=== PATIENT | male | born 1960 | race American Indian/Alaskan Native ===

== ENCOUNTER 2022-02-20 11:46 | Inpatient (IN) | payer OTHER ==
[2022-02-20] MEDS ORDERED: ALBUTEROL 2.5 MG/3 ML NEBU IH ONE (12:06)
[2022-02-20] MEDS ORDERED: IPRATROPIUM 0.02% NEBU 2.5 ML IH ONE (12:06)
[2022-02-20] MEDS ORDERED: SODIUM CHLORIDE 0.9% 500 ML 500 ML IV ONE (12:06)
--- NOTE | 2022-02-20 12:34 | XRay Report ---
CHEST 1 VIEW 02/20/2022 12:16 PM INDICATION / CLINICAL INFORMATION: Dyspnea. COMPARISON: None available. FINDINGS: SUPPORT DEVICES: None. HEART / MEDIASTINUM: No significant abnormality. LUNGS / PLEURA: Mild focal infiltrate within the lateral right lung base concerning for mild bronchop neumonia. Diffuse bronchial wall thickening. No other consolidation or significant pleural effusion. Mild pulmonary hyperinflation, which may represent underlying emphysema. No pneumothorax. ADDITIONAL FINDINGS: None IMPRESSION: 1. Mild right lateral basilar infiltrate concerning for mild focal bronchopneumonia. Signer Name: Jamey Jasso MD Signed: 02/20/2022 12:29 PM Workstation Name: [employer]
[2022-02-20] MEDS ORDERED: PIPERACIL-TAZO 2.25 GM/50 ML 2.25 GM/50 ML BAG IV ONE (12:42)
[2022-02-20 13:49] LABS: INR 1.07 (0.87-1.13)
[2022-02-20] MEDS ORDERED: SODIUM CHLORIDE 0.9% 500 ML 500 ML ONE (14:37)
[2022-02-20 14:53] LABS: Mean Corpuscular Volume 86 fl (84-94); Platelet Count 430 K/mm3 (140-440); Red Blood Count 4.16 M/mm3 (3.65-5.03); Red Cell Distribution Width 16.8 % (13.2-15.2)
[2022-02-20 14:56] LABS: Hematocrit 35.8 % (35.5-45.6)
[2022-02-20 15:00] LABS: Mean Corpuscular HGB Conc 39 % (32-34)
[2022-02-20 15:35] LABS: BUN/Creatinine Ratio TNR
[2022-02-20 15:41] LABS: Blood Urea Nitrogen TNR mg/dL (9-20)
[2022-02-20 15:42] LABS: Calcium TNR mg/dL (8.4-10.2)
[2022-02-20 15:43] LABS: Alanine Aminotransferase TNR units/L (7-56); Albumin TNR g/dL (3.9-5); Creatine Kinase MB TNR ng/mL (0.0-4.0)
[2022-02-20 15:44] LABS: Hemolysis Index TNR
[2022-02-20 16:19] LABS: Alanine Aminotransferase 5 units/L (7-56); Albumin 3.4 g/dL (3.9-5); Blood Urea Nitrogen 11 mg/dL (9-20); Calcium 9.2 mg/dL (8.4-10.2); Hemolysis Index 42
[2022-02-20 16:20] LABS: BUN/Creatinine Ratio 37
[2022-02-20 16:28] LABS: ABG HCO3 25.3 mmol/L (20.0-26.0); ABG Methemoglobin 0.6 % (0.0-1.5); ABG Oxygen Saturation 99.2 % (95.0-99.0); ABG PCO2 43.6 mm Hg; ABG PH 7.381 pH Units (7.350-7.450); ABG PO2 195.7 mm Hg (80.0-90.0)
[2022-02-20 16:55] LABS: Creatine Kinase MB 6.4 ng/mL (0.0-4.0)
[2022-02-20 17:20] LABS: Chol/HDL Ratio 4.52 %
--- NOTE | 2022-02-20 17:31 | Emergency Department Report ---
ED General Adult HPI - General Chief complaint: Dyspnea/Respdistress Stated complaint: YOANDY PUI?: No Time Seen by Provider: 02/20/22 12:06 Source: patient, EMS Mode of arrival: Stretcher Limitations: No Limitations - History of Present Illness Initial comments: DIFFICULTY BREATHING, PT HAS A HISTORY OF EMPHYSEMA. PT O2 SAT ON EMS ARRIVAL WAS 71- 2.5MG ALBUTEROL, 2MG MAG, 125MG SOLUMEDROL GIVEN BY EMS ON ARRIVA -: Gradual, days(s) Location: chest Severity scale (0 -10): 0 Associated Symptoms: chest pain, cough, shortness of breath, weakness Treatments Prior to Arrival: other (albuterol and steriods ) - Related Data Allergies Allergy/AdvReac Type Severity Reaction Status Date / Time No Known Allergies Allergy Unverified 02/20/22 11:55 ED Review of Systems ROS: Stated complaint: YOANDY Other details as noted in HPI Constitutional: denies: chills, fever Eyes: denies: eye pain, eye discharge, vision change ENT: denies: ear pain, throat pain Respiratory: denies: cough, shortness of breath, wheezing Cardiovascular: denies: chest pain, palpitations Endocrine: no symptoms reported Gastrointestinal: denies: abdominal pain, nausea, diarrhea Genitourinary: denies: urgency, dysuria Musculoskeletal: denies: back pain, joint swelling, arthralgia Skin: denies: rash, lesions Neurological: denies: headache, weakness, paresthesias Psychiatric: denies: anxiety, depression Hematological/Lymphatic: denies: easy bleeding, easy bruising ED Past Medical Hx - Past Medical History Previous Medical History?: No Hx Hypertension: No Hx COPD: Yes - Social History Smoking Status: Current Every Day Smoker ED Physical Exam - General Limitations: No Limitations General appearance: alert, anxious, cachectic - Head Head exam: Present: atraumatic, normocephalic - Eye Eye exam: Present: normal appearance - ENT ENT exam: Present: mucous membranes moist - Neck Neck exam: Present: normal inspection - Respiratory Respiratory exam: Present: wheezes, rhonchi, accessory muscle use, decreased breath sounds. Absent: respiratory distress - Cardiovascular Cardiovascular Exam: Present: normal rhythm, tachycardia. Absent: systolic murmur, diastolic murmur, rubs, gallop - GI/Abdominal GI/Abdominal exam: Present: soft, normal bowel sounds - Rectal Rectal exam: Present: deferred - Extremities Exam Extremities exam: Present: normal inspection - Back Exam Back exam: Present: normal inspection - Neurological Exam Neurological exam: Present: alert, oriented X3 - Psychiatric Psychiatric exam: Present: normal affect, normal mood - Skin Skin exam: Present: warm, dry, intact, normal color. Absent: rash ED Course Vital Signs 02/20/22 02/20/22 02/20/22 11:46 12:01 12:15 Pulse Rate 120 H 110 H Pulse Rate [ Bilateral] Respiratory 24 43 H Rate Respiratory Rate [Bilateral ] Blood Pressure 131/80 Blood Pressure 143/72 [Left] O2 Sat by Pulse 100 97 79 L Oximetry 02/20/22 02/20/22 02/20/22 12:27 12:31 12:45 Pulse Rate 114 H 113 H 116 H Pulse Rate [ Bilateral] Respiratory 38 H 39 H 27 H Rate Respiratory Rate [Bilateral ] Blood Pressure 131/80 131/80 115/68 Blood Pressure [Left] O2 Sat by Pulse 100 100 100 Oximetry 02/20/22 02/20/22 02/20/22 12:50 13:01 13:15 Pulse Rate 113 H 120 H Pulse Rate [ 100 H Bilateral] Respiratory 29 H 29 H Rate Respiratory 25 H Rate [Bilateral ] Blood Pressure 131/80 95/70 Blood Pressure [Left] O2 Sat by Pulse 97 100 Oximetry 02/20/22 02/20/22 02/20/22 13:31 13:45 14:01 Pulse Rate 113 H 113 H 112 H Pulse Rate [ Bilateral] Respiratory 16 24 27 H Rate Respiratory Rate [Bilateral ] Blood Pressure 115/68 103/68 95/70 Blood Pressure [Left] O2 Sat by Pulse 100 100 100 Oximetry 02/20/22 02/20/22 02/20/22 14:15 14:31 14:45 Pulse Rate 113 H 114 H 111 H Pulse Rate [ Bilateral] Respiratory 19 22 29 H Rate Respiratory Rate [Bilateral ] Blood Pressure 103/65 103/68 112/77 Blood Pressure [Left] O2 Sat by Pulse 100 100 99 Oximetry 02/20/22 02/20/22 14:49 15:36 Pulse Rate 99 H Pulse Rate [ Bilateral] Respiratory 31 H Rate Respiratory Rate [Bilateral ] Blood Pressure 92/63 Blood Pressure [Left] O2 Sat by Pulse 100 99 Oximetry ED Medical Decision Making - Lab Data Result diagrams: 02/20/22 13:33 02/20/22 14:34 - EKG Data -: EKG Interpreted by Me EKG shows normal: sinus rhythm Rate: tachycardia - Radiology Data Radiology results: report reviewed, image reviewed - Medical Decision Making work up showed anemia, sepsis pneumonia and respiratory failure , started on biap, abx givenf luids given rt given steriods Critical care attestation.: If time is entered above; I have spent that time in minutes in the direct care of this critically ill patient, excluding procedure time. ED Disposition Clinical Impression: Pneumonia, COPD exacerbation, Respiratory failure, Sepsis Disposition: ADMITTED INPATIENT Is pt being admited?: Yes Does the pt Need Aspirin: No Condition: Fair Instructions: Bacterial Pneumonia (ED), Chronic Obstructive Pulmonary Disease (ED) Referrals: PRIMARY CARE, [Primary Care Provider] - 3-5 Days
[2022-02-20] MEDS ORDERED: oxyCODONE /ACETAMINOPHEN 5-325MG TAB PO PRN (17:46)
[2022-02-20] MEDS ORDERED: METOCLOPRAMIDE 10 MG/2 ML INJ IV PRN (17:46)
[2022-02-20] MEDS ORDERED: MORPHINE 2 MG/1 ML INJ IV PRN (17:46)
[2022-02-20] MEDS ORDERED: ONDANSETRON 4 MG/2 ML INJ IV PRN (17:46)
[2022-02-20] MEDS ORDERED: IPRATROPIUM/ALBUTEROL SULFATE 3 ML AMPUL.NEB IH PRN (17:54)
[2022-02-20] MEDS ORDERED: AZITHROMYCIN/NS 500 MG/250 ML 500 MG/250 ML BAG IV SCH (18:00)
[2022-02-20] MEDS ORDERED: D5W/0.9% NACL 1,000 ML IV SCH (18:00)
[2022-02-20] MEDS ORDERED: ALBUTEROL 2.5 MG/3 ML NEBU IH PRN (18:12)
--- NOTE | 2022-02-20 18:20 | History and Physical Report ---
History of Present Illness Date of examination: 02/20/22 Date of admission: 02/20/2022 Chief complaint: Severe shortness of breath for 2 days History of present illness: 61-year-old male with history of hypertension and COPD comes in for increasing shortness of breath for the last 2 to 3 days. Patient has been having cough with sputum production which is mucoid in color. No fever or chills. Increasing shortness of breath not responding to inhalers and nebulizer treatments. No exacerbating or relieving factors. Except for smoking - Past Medical History Previous Medical History?: No --Hypertension: No --COPD: Yes - Social History --Smoking Status: Current Every Day Smoker Review of Systems ROS: Stated complaint: YOANDY Other details as noted in HPI Constitutional: denies: chills, fever Eyes: denies: eye pain, eye discharge, vision change ENT: denies: ear pain, throat pain Respiratory: denies: cough, shortness of breath, wheezing Cardiovascular: denies: chest pain, palpitations Endocrine: no symptoms reported Gastrointestinal: denies: abdominal pain, nausea, diarrhea Genitourinary: denies: urgency, dysuria Musculoskeletal: denies: back pain, joint swelling, arthralgia Skin: denies: rash, lesions Neurological: denies: headache, weakness, paresthesias Psychiatric: denies: anxiety, depression Hematological/Lymphatic: denies: easy bleeding, easy bruising Past History Past Surgical History: No surgical history Family history: hypertension Medications and Allergies Allergies Allergy/AdvReac Type Severity Reaction Status Date / Time No Known Allergies Allergy Unverified 02/20/22 11:55 Exam - Constitutional Vitals: Temp Pulse Resp BP Pulse Ox 99 H 31 H 92/63 99 02/20/22 15:36 02/20/22 15:36 02/20/22 15:36 02/20/22 15:36 General appearance: Present: severe distress, cachectic - EENT Eyes: Present: PERRL ENT: hearing intact, clear oral mucosa - Neck Neck: Present: supple, normal ROM - Respiratory Respiratory effort: normal Respiratory: bilateral: diminished, rhonchi, wheezing - Cardiovascular Heart rate: 98 Rhythm: regular Heart Sounds: Present: S1 & S2. Absent: rub, click - Extremities Extremities: pulses symmetrical, No edema Peripheral Pulses: within normal limits - Abdominal General gastrointestinal: Present: soft, non-tender, non-distended, normal bowel sounds Male genitourinary: Present: normal - Integumentary Integumentary: Present: clear, warm, dry - Musculoskeletal Musculoskeletal: gait normal, strength equal bilaterally - Psychiatric Psychiatric: appropriate mood/affect, intact judgment & insight - Neurologic Neurologic: CNII-XII intact, moves all extremities HEART Score - HEART Score Troponin: Troponin T TNR 02/20/22 14:34 Results - Labs CBC & Chem 7: 02/21/22 05:28 02/21/22 05:28 Labs: Laboratory Last Values WBC 10.8 K/mm3 (4.5-11.0) 02/20/22 13:33 RBC 4.16 M/mm3 (3.65-5.03) 02/20/22 13:33 Hgb 14.0 gm/dl (11.8-15.2) 02/20/22 13:33 Hct 35.8 % (35.5-45.6) 02/20/22 13:33 MCV 86 fl (84-94) 02/20/22 13:33 MCH 34 pg (28-32) H 02/20/22 13:33 MCHC 39 % (32-34) H* 02/20/22 13:33 RDW 16.8 % (13.2-15.2) H 02/20/22 13:33 Plt Count 430 K/mm3 (140-440) 02/20/22 13:33 Lymph % (Auto) [employer] 02/20/22 13:33 [place] % (Auto) [employer] 02/20/22 13:33 Eos % (Auto) [employer] 02/20/22 13:33 Baso % (Auto) [employer] 02/20/22 13:33 Lymph # (Auto) [employer] 02/20/22 13:33 [place] # (Auto) [employer] 02/20/22 13:33 Eos # (Auto) [employer] 02/20/22 13:33 Baso # (Auto) [employer] 02/20/22 13:33 Seg Neutrophils % [employer] 02/20/22 13:33 Seg Neutrophils # [employer] 02/20/22 13:33 PT 15.4 Sec. (12.2-14.9) H 02/20/22 13:33 INR 1.07 (0.87-1.13) 02/20/22 13:33 ABG pH 7.381 pH Units (7.350-7.450) 02/20/22 16:08 ABG pCO2 43.6 mm Hg 02/20/22 16:08 ABG pO2 195.7 mm Hg (80.0-90.0) H 02/20/22 16:08 ABG HCO3 25.3 mmol/L (20.0-26.0) 02/20/22 16:08 ABG O2 Saturation 99.2 % (95.0-99.0) H 02/20/22 16:08 ABG O2 Content 17.7 (0.0-44) 02/20/22 16:08 ABG Base Excess 0.0 mmol/L (-2.0-3.0) 02/20/22 16:08 ABG Hemoglobin 12.7 gm/dl (14.0-18.0) L 02/20/22 16:08 ABG Carboxyhemoglobin 1.9 % (0.0-5.0) 02/20/22 16:08 ABG Methemoglobin 0.6 % (0.0-1.5) 02/20/22 16:08 Oxyhemoglobin 96.7 % (95.0-99.0) 02/20/22 16:08 FiO2 50 % 02/20/22 16:08 Sodium TNR 02/20/22 14:34 Potassium TNR 02/20/22 14:34 Chloride TNR 02/20/22 14:34 Carbon Dioxide TNR 02/20/22 14:34 Anion Gap TNR 02/20/22 14:34 BUN TNR 02/20/22 14:34 Creatinine TNR 02/20/22 14:34 Estimated GFR TNR 02/20/22 14:34 BUN/Creatinine Ratio TNR 02/20/22 14:34 Glucose TNR 02/20/22 14:34 Lactic Acid 2.10 mmol/L (0.7-2.0) H* 02/20/22 14:34 Calcium TNR 02/20/22 14:34 Magnesium TNR 02/20/22 14:34 Total Bilirubin TNR 02/20/22 14:34 AST TNR 02/20/22 14:34 ALT TNR 02/20/22 14:34 Alkaline Phosphatase TNR 02/20/22 14:34 Total Creatine Kinase TNR 02/20/22 14:34 CK-MB (CK-2) TNR 02/20/22 14:34 CK-MB (CK-2) Rel Index TNR 02/20/22 14:34 Troponin T TNR 02/20/22 14:34 NT-Pro-B Natriuret Pep 146.4 pg/mL (0-900) 02/20/22 13:39 Total Protein TNR 02/20/22 14:34 Albumin TNR 02/20/22 14:34 Albumin/Globulin Ratio TNR 02/20/22 14:34 Triglycerides 140 mg/dL (2-149) 02/20/22 13:39 Cholesterol 154 mg/dL (50-199) 02/20/22 13:39 LDL Cholesterol Direct 90 mg/dL (50-130) 02/20/22 13:39 HDL Cholesterol 34 mg/dL (40-59) L 02/20/22 13:39 Cholesterol/HDL Ratio 4.52 % 02/20/22 13:39 Lipase TNR 02/20/22 14:34 Short CBC 02/20/22 02/21/22 Range/Units 13:33 05:28 WBC 10.8 3.2 L (4.5-11.0) K/mm3 Hgb 14.0 11.4 L (11.8-15.2) gm/dl Hct 35.8 32.3 L (35.5-45.6) % Plt Count 430 328 (140-440) K/mm3 BMP 02/20/22 02/20/22 02/21/22 13:39 14:34 05:28 Sodium 143 TNR 136 L Potassium 4.4 TNR 4.4 Chloride 98.9 TNR 101.4 Carbon Dioxide 24 TNR 25 BUN 11 TNR 12 Creatinine 0.3 L TNR 0.2 L Glucose 139 H TNR 141 H Calcium 9.2 TNR 8.6 Cardiac Enzymes 02/20/22 02/20/22 Range/Units 13:39 14:34 Total Creatine Kinase 54 L TNR (55-170) units/L CK-MB (CK-2) 6.4 H TNR (0.0-4.0) ng/mL Troponin T 0.141 H* TNR (0.00-0.029) ng/mL Liver Function 02/20/22 02/20/22 02/21/22 Range/Units 13:39 14:34 05:28 Total Bilirubin 0.60 TNR 0.40 (0.1-1.2) mg/dL AST 13 TNR 11 (5-40) units/L ALT 5 L TNR < 5 L (7-56) units/L Alkaline Phosphatase 109 TNR 87 (35-129) units/L Albumin 3.4 L TNR 3.0 L (3.9-5) g/dL Urine 02/20/22 Range/Units 18:53 Urine Color Yellow (Yellow) Short CBC 02/20/22 02/21/22 Range/Units 13:33 05:28 WBC 10.8 3.2 L (4.5-11.0) K/mm3 Hgb 14.0 11.4 L (11.8-15.2) gm/dl Hct 35.8 32.3 L (35.5-45.6) % Plt Count 430 328 (140-440) K/mm3 BMP 02/20/22 02/20/22 02/21/22 13:39 14:34 05:28 Sodium 143 TNR 136 L Potassium 4.4 TNR 4.4 Chloride 98.9 TNR 101.4 Carbon Dioxide 24 TNR 25 BUN 11 TNR 12 Creatinine 0.3 L TNR 0.2 L Glucose 139 H TNR 141 H Calcium 9.2 TNR 8.6 Cardiac Enzymes 02/20/22 02/20/22 Range/Units 13:39 14:34 Total Creatine Kinase 54 L TNR (55-170) units/L CK-MB (CK-2) 6.4 H TNR (0.0-4.0) ng/mL Troponin T 0.141 H* TNR (0.00-0.029) ng/mL Liver Function 02/20/22 02/20/22 02/21/22 Range/Units 13:39 14:34 05:28 Total Bilirubin 0.60 TNR 0.40 (0.1-1.2) mg/dL AST 13 TNR 11 (5-40) units/L ALT 5 L TNR < 5 L (7-56) units/L Alkaline Phosphatase 109 TNR 87 (35-129) units/L Albumin 3.4 L TNR 3.0 L (3.9-5) g/dL Urine 08/25/22 Range/Units 18:53 Urine Color Yellow (Yellow) Microbiology: Microbiology 02/20/22 13:39 Peripheral/Venous Blood Culture - Preliminary Culture in Progress 02/20/22 13:39 Peripheral/Venous Blood Culture - Preliminary Culture in Progress - Imaging and Cardiology EKG: report reviewed (Sinus tachycardia heart rate of 110/min) Chest x-ray: report reviewed Imaging and Cardiology: Chest x-ray Mild right lateral basilar infiltrate concerning for mild focal bronchopneumonia Assessment and Plan Advance Directives: Yes (Full code) VTE prophylaxis?: Chemical Plan of care discussed with patient/family: Yes - Patient Problems (1) Acute respiratory failure with hypoxia Current Visit: Yes Status: Acute Plan to address problem: Patient is hypoxic at the time of admission to emergency room Patient on 50% Ventimask now Titrate oxygen supplementation Respiratory assessment and treatment Patient initiated on duo nebs and steroids and antibiotics (2) Right lower lobe pneumonia Current Visit: Yes Status: Acute Plan to address problem: Patient has right lower lobe pneumonia IV antibiotics and duo nebs and IV Solu-Medrol (3) COPD exacerbation Current Visit: Yes Status: Acute Plan to address problem: Patient initiated on IV steroids, IV antibiotics and duo nebs [id number] and as needed (4) Hypertension Current Visit: Yes Status: Chronic Qualifiers: Hypertension type: primary hypertension Qualified Code(s): I10 - Essential (primary) hypertension Plan to address problem: Continue antihypertensives and adjust medications as necessary (5) DVT prophylaxis Current Visit: Yes Status: Acute Plan to address problem: On anticoagulation GI prophylaxis (6) Advance care planning Current Visit: Yes Status: Acute Plan to address problem: Disease education conducted, care plan discussed, diagnosis discussed and prognosis discussed. Patient acknowledges care plan. +30 minutes.
[2022-02-20] MEDS: cefTRIAXone/NS 2 GM/100 ML 2 GM/100 ML BAG IV SCH (18:56)
[2022-02-20 19:11] LABS: Mucus,Urine 1+ /HPF
[2022-02-20 19:17] LABS: Amphetamine Screen,Urine Negative; Benzodiazepines Screen,Urine Negative; Cannabinoid Screen,Urine Negative; Cocaine Screen,Urine Negative; Methadone Screen,Urine Negative; Opiate Screen,Urine Negative
[2022-02-20 19:20] LABS: Color,Urine Yellow (Yellow)
[2022-02-20] MEDS: IPRATROPIUM/ALBUTEROL SULFATE 3 ML AMPUL.NEB IH SCH (19:36)
[2022-02-20] MEDS: HEPARIN 5,000 UNIT/1 ML VIAL SUB-Q SCH (22:31)
[2022-02-20] MEDS: FAMOTIDINE 20 MG TAB PO SCH (22:31)
[2022-02-20] MEDS: methylPREDNISolone Sod Succinate 125 MG/2 ML INJ IV SCH (22:31)
[2022-02-21 05:53] LABS: Eosinophils % (Auto) 0.4 % (0.0-4.3); Monocytes # (Auto) 0.2 K/mm3 (0.0-0.8); Monocytes % (Auto) 5.8 % (0.0-7.3)
[2022-02-21] MEDS: methylPREDNISolone Sod Succinate 125 MG/2 ML INJ IV SCH ×2 (06:00→14:06)
[2022-02-21 06:15] LABS: Blood Urea Nitrogen 12 mg/dL (9-20); Calcium 8.6 mg/dL (8.4-10.2); Hemolysis Index 3
[2022-02-21 06:17] LABS: Alanine Aminotransferase < 5 units/L (7-56); BUN/Creatinine Ratio 60
[2022-02-21 06:37] LABS: Basophils % (Auto) 1.1 % (0.0-1.8); Hematocrit 32.3 % (35.5-45.6); Hemoglobin 11.4 gm/dl (11.8-15.2); Lymphocytes # (Auto) 0.6 K/mm3 (1.2-5.4); Lymphocytes % (Auto) 20.3 % (13.4-35.0); Mean Corpuscular HGB Conc 35 % (32-34); Mean Corpuscular Volume 87 fl (84-94); Platelet Count 328 K/mm3 (140-440); Red Blood Count 3.71 M/mm3 (3.65-5.03); Red Cell Distribution Width 16.4 % (13.2-15.2)
[2022-02-21] MEDS ORDERED: SODIUM CHLORIDE 0.9% 1000 ML 1,000 ML IV ONE (08:30)
[2022-02-21] MEDS: IPRATROPIUM/ALBUTEROL SULFATE 3 ML AMPUL.NEB IH SCH (09:10)
[2022-02-21] MEDS: cefTRIAXone/NS 2 GM/100 ML 2 GM/100 ML BAG IV SCH (09:54)
[2022-02-21] MEDS: HEPARIN 5,000 UNIT/1 ML VIAL SUB-Q SCH ×2 (09:54→22:26)
[2022-02-21] MEDS: FAMOTIDINE 20 MG TAB PO SCH ×2 (09:55→22:27)
--- NOTE | 2022-02-21 10:35 | Electrocardiograph Report ---
[facility] Test Date: 2022-02-20 Test Time: 12:08:24 Pat Name: ELIANA ORDONEZ Department: Room: A479 Gender: M Clock Smith: AISHA : 1960 Requested By: LEXUS LANG Order Number: [id number] Reading MD: Ilan Reilly Measurements Intervals [place] Rate: 106 P: 75 UT: 137 QRS: 71 QRSD: 77 T: 74 QT: 329 QTc: 449 Interpretive Statements Sinus tachycardia Atrial premature complex nonspecific st-t Nonspecific T abnormalities, lateral leads No previous ECG available for comparison Electronically Signed On 02-21-2022 10:35:34 EDT by Ilan Reilly
[2022-02-21] MEDS ORDERED: AZITHROMYCIN 250 MG TAB PO SCH (11:00)
[2022-02-21] MEDS ORDERED: ALBUTEROL 2.5 MG/3 ML NEBU IH PRN (12:00)
--- NOTE | 2022-02-21 12:28 | Event Note ---
Date: 02/21/22 Consulted for respiratory failure and COPD Needs COVID test Will evaluate once COVID back Suggest changing steroids to 60q6 Would hold on nebulized therapy and only use puffers until COVID results Daily net negative volume state Smoking cessation.
[2022-02-21] MEDS ORDERED: IPRATROPIUM/ALBUTEROL SULFATE 3 ML AMPUL.NEB IH SCH (14:00)
--- NOTE | 2022-02-21 18:58 | Consultation ---
History of Present Illness - Reason for Consult Consult date: 02/21/22 - History of Present Illness 61-year-old man past medical history hypertension, COPD presented to hospital complaining of shortness of breath for the past 3 days. He notes increasing cough and sputum production. He otherwise denies any other symptoms. Ongoing smoking. Afebrile, white count low at 3.2. COVID-19 positive. Normal renal function. CRP elevated at 6.7. Procalcitonin pending. Blood cultures no growth so far. Currently on methylprednisolone, no antibiotics. Requiring BiPAP. Imaging personally reviewed: Chest x-ray: Right lateral basilar infiltrate Review of systems: Deferred to reduce to the risk of transmission of COVID-19 Past History Past Surgical History: No surgical history Family history: hypertension Medications and Allergies Allergies Allergy/AdvReac Type Severity Reaction Status Date / Time No Known Allergies Allergy Unverified 02/20/22 11:55 Home Medications Medication Instructions Recorded Confirmed Last Taken Type ALBUTEROL NEB's [Proventil 0.083% 2.5 mg IH Q6H PRN 02/21/22 02/21/22 Unknown History NEBS] Budesonide/Formoterol Fumarate 10.2 gm IH Q12H 02/21/22 02/21/22 Unknown History [Symbicort 160-4.5 Mcg Inhaler] Tiotropium [Spiriva] 18 mcg IH QDAY 02/21/22 02/21/22 Unknown History Active Meds: Active Medications Acetaminophen (Acetaminophen 325 Mg Tab) 650 mg PO Q4H PRN PRN Reason: Pain MILD(1-3)/Fever >100.5/SALEEM Albuterol (Albuterol 2.5 Mg/3 Ml Nebu) 2.5 mg IH Q4HRT PRN PRN Reason: Shortness Of Breath Arformoterol Tartrate (Arformoterol 15 Mcg/2 Ml Nebu) 15 mcg IH Q12HRT [facility] Budesonide (Budesonide 0.5 Mg/2 Ml Nebu) 0.5 mg IH Q12HRT [facility] Famotidine (Famotidine 20 Mg Tab) 20 mg PO BID [facility] Last Admin: 02/21/22 09:55 Dose: 20 mg Heparin Sodium (Porcine) (Heparin 5,000 Unit/1 Ml Vial) 5,000 unit SUB-Q Q12HR [facility] Last Admin: 02/21/22 09:54 Dose: 5,000 unit Methylprednisolone Sodium Succinate (Methylprednisolone Sod Succinate 125 Mg/2 Ml Inj) 125 mg IV Q8HR [facility] Last Admin: 02/21/22 14:06 Dose: 125 mg Metoclopramide HCl (Metoclopramide 10 Mg/2 Ml Inj) 10 mg IV Q6H PRN PRN Reason: Nausea And Vomiting Morphine Sulfate (Morphine 2 Mg/1 Ml Inj) 2 mg IV Q4H PRN PRN Reason: Pain, Moderate (4-6) Ondansetron HCl (Ondansetron 4 Mg/2 Ml Inj) 4 mg IV Q8H PRN PRN Reason: Nausea And Vomiting Oxycodone/Acetaminophen (Oxycodone /Acetaminophen 5-325mg Tab) 1 tab PO Q6H PRN PRN Reason: Pain, Moderate (4-6) Sodium Chloride (Sodium Chloride 0.9% 10 Ml Flush Syringe) 10 ml IV BID [facility] Last Admin: 02/21/22 09:55 Dose: 10 ml Sodium Chloride (Sodium Chloride 0.9% 10 Ml Flush Syringe) 10 ml IV PRN PRN PRN Reason: LINE FLUSH Physical Examination - Physical Exam Narrative exam: Physical exam deferred to reduce risk of transmission of COVID-19. Please refer to primary team's note. - Constitutional Vitals: Vital Signs Temp Pulse Resp BP Pulse Ox 97.6 F 120 H 36 H 126/95 100 02/21/22 11:47 02/21/22 16:52 02/21/22 16:52 02/21/22 16:52 02/21/22 16:52 Temperature -Last 24 Hours Temperature 97.6 F Temperature 97.7 F Temperature 98.0 F Temperature 97.0 F Results - Labs CBC & Chem 7: 02/21/22 05:28 02/21/22 05:28 Labs: Abnormal lab results 02/21/22 02/21/22 02/21/22 Range/Units 05:28 05:28 09:20 WBC 3.2 L (4.5-11.0) K/mm3 Hgb 11.4 L (11.8-15.2) gm/dl Hct 32.3 L (35.5-45.6) % MCHC 35 H (32-34) % RDW 16.4 H (13.2-15.2) % Lymph # (Auto) 0.6 L (1.2-5.4) K/mm3 Seg Neutrophils % 73.5 H (40.0-70.0) % D-Dimer 335.95 H (0-234) ng/mlDDU Sodium 136 L (137-145) mmol/L Creatinine 0.2 L (0.8-1.3) mg/dL Glucose 141 H (75-100) mg/dL Ferritin (30.0-300.0) ng/mL ALT < 5 L (7-56) units/L C-Reactive Protein (0.00-1.30) mg/dL Albumin 3.0 L (3.9-5) g/dL Coronavirus (PCR) (Negative) 02/21/22 02/21/22 02/21/22 Range/Units 09:20 09:20 11:30 WBC (4.5-11.0) K/mm3 Hgb (11.8-15.2) gm/dl Hct (35.5-45.6) % MCHC (32-34) % RDW (13.2-15.2) % Lymph # (Auto) (1.2-5.4) K/mm3 Seg Neutrophils % (40.0-70.0) % D-Dimer (0-234) ng/mlDDU Sodium (137-145) mmol/L Creatinine (0.8-1.3) mg/dL Glucose (75-100) mg/dL Ferritin 1666.0 H (30.0-300.0) ng/mL ALT (7-56) units/L C-Reactive Protein 6.70 H (0.00-1.30) mg/dL Albumin (3.9-5) g/dL Coronavirus (PCR) Positive A (Negative) Assessment and Plan Cultures: Blood culture no growth so far COVID-19 PCR positive. A/P: 61-year-old man past medical history COPD, nicotine abuse now with: #Severe COVID-19 pneumonia: Patient presented with a week of symptoms, chest x- ray with infiltrates, admission O2 sats decreased on room air. Inflammatory markers elevated #Acute hypoxemic respiratory failure: Likely secondary to COVID-19 infection. Currently on BiPAP #COPD #Leukopenia: Secondary to COVID-19 Recommendations: -Steroids for 10 days -Remdesivir 200 mg IV q day x 1 followed by 100 mg IV q day x 4 days -Obtain q48-72h inflammatory markers - ferritin, Ddimer, CRP, LDH -If CRP exceeds 7.5, consider Actemra -Anticoagulation per hospital protocol -Proning as able Thank you for the consult, we will continue to follow. Yanet Cid MD [facility] O: [phone] F: [phone]
--- NOTE | 2022-02-21 19:30 | Progress Note ---
Assessment and Plan Assessment and plan: #COVID-19 pneumonia #Right lower lobe pneumonia #Acute hypoxic respiratory failure #Acute on chronic COPD exacerbation - etiology: COVID-19 infection - currently requiring BiPAP (baseline oxygen requirement is room air); wean as tolerated - continue azithromycin 500 mg daily (ends 02/25) and rocephin 1g daily (ends 02/25) and remdesivir x5 days continue IV Solu-Medrol 60 mg every 6 hours, airborne and droplet precautions, continuous pulse ox, and telemetry Blood cultures pending. Infectious disease consulted; appreciate recs Pulmonology consulted; appreciate recs Currently holding nebulizers as the patient is positive for COVID-19 to avoid aerosolizing virus #Mild protein caloric malnutrition Albumin 3.0 Starting dietary supplementation Critical Care Billing: The high probability of a clinically significant, sudden or life threatening deterioration of the [respiratory] system(s) required my full and direct attention, intervention and personal management. The aggregate critical care time was [60] minutes. This time is in addition to time spent performing reported procedures but includes the following: [x] Data Review and interpretation [x] Patient assessment and monitoring of vital signs [x] Documentation [x] Medication orders and management Disposition Plan: Continue medical management Total Time Spent with Patient (Minutes): 60 minutes History Interval history: No acute events overnight. Hospitalist Physical - Constitutional Vitals: Temp Pulse Resp BP Pulse Ox 97.6 F 69 15 87/58 100 02/21/22 11:47 02/21/22 19:00 02/21/22 19:00 02/21/22 19:00 02/21/22 19:00 General appearance: Present: severe distress, cachectic - EENT Eyes: Present: PERRL, EOM intact ENT: hearing intact, clear oral mucosa, dentition normal - Neck Neck: Present: supple, normal ROM - Respiratory Respiratory effort: labored Respiratory: bilateral: diminished (On BiPAP) - Cardiovascular Rhythm: regular Heart Sounds: Present: S1 & S2 - Extremities Extremities: no ischemia, pulses intact, pulses symmetrical, No edema, normal temperature, normal color Peripheral Pulses: within normal limits - Abdominal General gastrointestinal: soft, non-tender, non-distended, normal bowel sounds - Integumentary Integumentary: Present: clear, warm, dry - Psychiatric Psychiatric: appropriate mood/affect, intact judgment & insight, memory intact, cooperative - Neurologic Neurologic: CNII-XII intact, moves all extremities - Allied Health Allied health notes reviewed: nursing HEART Score - HEART Score Troponin: Troponin T TNR 02/20/22 14:34 Results - Labs CBC & Chem 7: 02/21/22 05:28 02/21/22 05:28 Labs: Laboratory Last Values WBC 3.2 K/mm3 (4.5-11.0) L 02/21/22 05:28 RBC 3.71 M/mm3 (3.65-5.03) 02/21/22 05:28 Hgb 11.4 gm/dl (11.8-15.2) L 02/21/22 05:28 Hct 32.3 % (35.5-45.6) L 02/21/22 05:28 MCV 87 fl (84-94) 02/21/22 05:28 MCH 31 pg (28-32) 02/21/22 05:28 MCHC 35 % (32-34) H 02/21/22 05:28 RDW 16.4 % (13.2-15.2) H 02/21/22 05:28 Plt Count 328 K/mm3 (140-440) 02/21/22 05:28 Lymph % (Auto) 20.3 % (13.4-35.0) 02/21/22 05:28 [place] % (Auto) 5.8 % (0.0-7.3) 02/21/22 05:28 Eos % (Auto) 0.4 % (0.0-4.3) 02/21/22 05:28 Baso % (Auto) 1.1 % (0.0-1.8) 02/21/22 05:28 Lymph # (Auto) 0.6 K/mm3 (1.2-5.4) L 02/21/22 05:28 [place] # (Auto) 0.2 K/mm3 (0.0-0.8) 02/21/22 05:28 Eos # (Auto) 0.0 K/mm3 (0.0-0.4) 02/21/22 05:28 Baso # (Auto) 0.0 K/mm3 (0.0-0.1) 02/21/22 05:28 Seg Neutrophils % 73.5 % (40.0-70.0) H 02/21/22 05:28 Seg Neutrophils # 2.3 K/mm3 (1.8-7.7) 02/21/22 05:28 PT 15.4 Sec. (12.2-14.9) H 02/20/22 13:33 INR 1.07 (0.87-1.13) 02/20/22 13:33 D-Dimer 335.95 ng/mlDDU (0-234) H 02/21/22 09:20 ABG pH 7.381 pH Units (7.350-7.450) 02/20/22 16:08 ABG pCO2 43.6 mm Hg 02/20/22 16:08 ABG pO2 195.7 mm Hg (80.0-90.0) H 02/20/22 16:08 ABG HCO3 25.3 mmol/L (20.0-26.0) 02/20/22 16:08 ABG O2 Saturation 99.2 % (95.0-99.0) H 02/20/22 16:08 ABG O2 Content 17.7 (0.0-44) 02/20/22 16:08 ABG Base Excess 0.0 mmol/L (-2.0-3.0) 02/20/22 16:08 ABG Hemoglobin 12.7 gm/dl (14.0-18.0) L 02/20/22 16:08 ABG Carboxyhemoglobin 1.9 % (0.0-5.0) 02/20/22 16:08 ABG Methemoglobin 0.6 % (0.0-1.5) 02/20/22 16:08 Oxyhemoglobin 96.7 % (95.0-99.0) 02/20/22 16:08 FiO2 50 % 02/20/22 16:08 Sodium 136 mmol/L (137-145) L 02/21/22 05:28 Potassium 4.4 mmol/L (3.6-5.0) 02/21/22 05:28 Chloride 101.4 mmol/L (98-107) 02/21/22 05:28 Carbon Dioxide 25 mmol/L (22-30) 02/21/22 05:28 Anion Gap 14 mmol/L 02/21/22 05:28 BUN 12 mg/dL (9-20) 02/21/22 05:28 Creatinine 0.2 mg/dL (0.8-1.3) L 02/21/22 05:28 Estimated GFR > 60 ml/min 02/21/22 05:28 BUN/Creatinine Ratio 60 % 02/21/22 05:28 Glucose 141 mg/dL (75-100) H 02/21/22 05:28 Lactic Acid 2.10 mmol/L (0.7-2.0) H* 02/20/22 14:34 Calcium 8.6 mg/dL (8.4-10.2) 02/21/22 05:28 Magnesium TNR 02/20/22 14:34 Ferritin 1666.0 ng/mL (30.0-300.0) H 02/21/22 09:20 Total Bilirubin 0.40 mg/dL (0.1-1.2) 02/21/22 05:28 AST 11 units/L (5-40) 02/21/22 05:28 ALT < 5 units/L (7-56) L 02/21/22 05:28 Alkaline Phosphatase 87 units/L (35-129) 02/21/22 05:28 Total Creatine Kinase TNR 02/20/22 14:34 CK-MB (CK-2) TNR 02/20/22 14:34 CK-MB (CK-2) Rel Index TNR 02/20/22 14:34 Troponin T TNR 02/20/22 14:34 C-Reactive Protein 6.70 mg/dL (0.00-1.30) H 02/21/22 09:20 NT-Pro-B Natriuret Pep 146.4 pg/mL (0-900) 02/20/22 13:39 Total Protein 6.5 g/dL (6.3-8.2) 02/21/22 05:28 Albumin 3.0 g/dL (3.9-5) L 02/21/22 05:28 Albumin/Globulin Ratio 0.9 % 02/21/22 05:28 Triglycerides 140 mg/dL (2-149) 02/20/22 13:39 Cholesterol 154 mg/dL (50-199) 02/20/22 13:39 LDL Cholesterol Direct 90 mg/dL (50-130) 02/20/22 13:39 HDL Cholesterol 34 mg/dL (40-59) L 02/20/22 13:39 Cholesterol/HDL Ratio 4.52 % 02/20/22 13:39 Lipase TNR 02/20/22 14:34 Urine Color Yellow (Yellow) 02/20/22 18:53 Urine Turbidity Cloudy (Clear) 02/20/22 18:53 Specific [place] (Man) 1.020 (1.003-1.030) 02/20/22 18:53 Ur Protein (Man) 1+ mg/dL (Negative) 02/20/22 18:53 Ur Ketones (Man) Negative (Negative) 02/20/22 18:53 Ur Nitrite (Man) Negative (Negative) 02/20/22 18:53 Ur Reducing Substances Not Reportable 02/20/22 18:53 Urine Bilirubin (Man) Negative (Negative) 02/20/22 18:53 Leukocyte Esterase (Man) Negative (Negative) 02/20/22 18:53 Urine WBC (Auto) 3.0 /HPF (0.0-6.0) 02/20/22 18:53 Urine RBC (Auto) 1.0 /HPF (0.0-6.0) 02/20/22 18:53 Urine RBC (Manual) Negative (Negative) 02/20/22 18:53 Urine Mucus 1+ /HPF 02/20/22 18:53 Urine Opiates Screen Negative 02/20/22 18:53 Urine Methadone Screen Negative 02/20/22 18:53 Ur Barbiturates Screen Negative 02/20/22 18:53 Ur Phencyclidine Scrn Negative 02/20/22 18:53 Ur Amphetamines Screen Negative 02/20/22 18:53 U Benzodiazepines Scrn Negative 02/20/22 18:53 Urine Cocaine Screen Negative 02/20/22 18:53 U Marijuana (THC) Screen Negative 02/20/22 18:53 Drugs of Abuse Note Disclamer 02/20/22 18:53 Coronavirus (PCR) Positive (Negative) A 02/21/22 11:30 Microbiology: Microbiology 02/20/22 13:39 Peripheral/Venous Blood Culture - Preliminary NO GROWTH AFTER 24 HOURS 02/20/22 13:39 Peripheral/Venous Blood Culture - Preliminary NO GROWTH AFTER 24 HOURS Linder/IV: Voiding Method Urinal Active Medications - Current Medications Current Medications: Generic Name Dose Route Start Last Admin Trade Name Freq PRN Reason Stop Dose Admin Acetaminophen 650 mg 02/20/22 17:46 Acetaminophen 325 Mg Tab PO Q4H PRN Pain MILD(1-3)/Fever >100.5/SALEEM Albuterol 2.5 mg 02/21/22 12:00 Albuterol 2.5 Mg/3 Ml Nebu IH Q4HRT PRN Shortness Of Breath Arformoterol Tartrate 15 mcg 02/21/22 20:00 Arformoterol 15 Mcg/2 Ml Nebu IH Q12HRT [facility] Budesonide 0.5 mg 02/21/22 20:00 Budesonide 0.5 Mg/2 Ml Nebu IH Q12HRT [facility] Famotidine 20 mg 02/20/22 22:00 02/21/22 09:55 Famotidine 20 Mg Tab PO 20 mg BID LIONEL Administration Heparin Sodium (Porcine) 5,000 unit 02/20/22 22:00 02/21/22 09:54 Heparin 5,000 Unit/1 Ml Vial SUB-Q 5,000 unit Q12HR LIONEL Administration Remdesivir 200 mg/ Sodium 250 mls @ 500 mls/hr 02/21/22 22:00 Chloride IV 02/21/22 22:29 ONCE ONE Remdesivir 100 mg/ Sodium 250 mls @ 500 mls/hr 02/22/22 14:00 Chloride IV 02/25/22 14:29 Q24HR@1400 LION[facility] Methylprednisolone Sodium Succinate 125 mg 02/20/22 22:00 02/21/22 14:06 Methylprednisolone Sod Succinate 125 Mg/2 Ml Inj IV 125 mg Q8HR LIONEL Administration Metoclopramide HCl 10 mg 02/20/22 17:46 Metoclopramide 10 Mg/2 Ml Inj IV Q6H PRN Nausea And Vomiting Morphine Sulfate 2 mg 02/20/22 17:46 Morphine 2 Mg/1 Ml Inj IV Q4H PRN Pain, Moderate (4-6) Ondansetron HCl 4 mg 02/20/22 17:46 Ondansetron 4 Mg/2 Ml Inj IV Q8H PRN Nausea And Vomiting Oxycodone/Acetaminophen 1 tab 02/20/22 17:46 Oxycodone /Acetaminophen 5-325mg Tab PO Q6H PRN Pain, Moderate (4-6) Sodium Chloride 10 ml 02/20/22 22:00 02/21/22 09:55 Sodium Chloride 0.9% 10 Ml Flush Syringe IV 10 ml BID LIONEL Administration Sodium Chloride 10 ml 08/25/22 17:46 Sodium Chloride 0.9% 10 Ml Flush Syringe IV PRN PRN LINE FLUSH Sodium Chloride 50 ml 02/22/22 22:30 Sodium Chloride 0.9% 50 Ml Ivpb IV 02/26/22 14:01 Q24HR@1400 [facility] Nutrition/Malnutrition Assess - Dietary Evaluation Nutrition/Malnutrition Findings: Nutrition Notes Start: 02/21/22 14:17 Freq: Status: Active Protocol: Document 02/21/22 14:18 ALLA (Rec: 02/21/22 14:27 [id number] Nutrition Notes Need for Assessment generated from: MD Order Initial or Follow up Assessment Current Diagnosis COPD,Hypertension,Respiratory Failure Other Pertinent Diagnosis RLL pneu, COPD exacerbation, r /o COVID-19 Current Diet Regular + Ensure Enlive (per MD order) Labs/Tests Reviewed Pertinent Medications Solumedrol Height 5 ft 5 in Weight 35.6 kg [place] Body Weight (kg) 61.81 BMI 13.0 Weight Status Underweight Subjective/Other Information RD consulted for poor oral intake; pt also screened for low BMI. Pt admitted with c/o increasing SOB for last 2-3 days. Pt on BiPap support. Burn Absent Trauma Absent Skin Integrity/Comment No skin breakdown reported Minimum of two criteria Yes Energy Intake (severe) < or equal to 50% Estimated Energy Requirement > or equal to 5 days Reduced Licensing Officer Strength Measurably Reduced (severe) #1 Nutrition Diagnosis Malnutrition Etiology chronic illness As Evidenced by Signs and Symptoms BMI 13.1, decreased PO intake, bilat weak pot holder binder strength Is patient on ventilator? No Is Patient Ambulatory and/or Out of Bed Yes REE-([facility]-ambulatory/OOB) [ 1407.744 [id number]] Kcal/Kg value to use for calculation 50 Approximate Energy Requirements Using 1780 kcal/Kg Calculation Used for Recommendations Kcal/kg Additional Notes Pro needs 1.2-1.5g/k-53g/ day Fluid needs 1ml/kcal Nutrition Intervention Change Diet Order: Continue current diet order Add Supplement/Snack (indicate name/kcal Ensure High Protein TID ( /protein ) Ensure Enlive not in stock until February 2022) Provides kCal: 480 Provides Protein (gm) 48 Goal #1 PO intake of meals plus ONS to meet 100% of energy and pro needs Goal #2 Wt maintenance and/or gain Anticipated Discharge Needs: Continue ONS 2-3 times daily for wt maintenance Follow-Up By: 02/24/22 Additional Comments F/U: intakes (meals/ONS), COVID-19 test results
[2022-02-21] MEDS: ARFORMOTEROL 15 MCG/2 ML NEBU IH SCH (21:04)
[2022-02-21] MEDS: BUDESONIDE 0.5 MG/2 ML NEBU IH SCH (21:04)
[2022-02-21] MEDS ORDERED: REMDESIVIR 200 MG in SODIUM CHLORIDE 0.9% 250ML 250 ML IV ONE (22:00)
[2022-02-22] MEDS: methylPREDNISolone Sod Succinate 125 MG/2 ML INJ IV SCH ×4 (00:30→17:52)
[2022-02-22 05:01] LABS: Lymphocytes # (Auto) 0.7 K/mm3 (1.2-5.4); Lymphocytes % (Auto) 12.1 % (13.4-35.0); Mean Corpuscular HGB Conc 37 % (32-34); Mean Corpuscular Volume 90 fl (84-94); Monocytes # (Auto) 0.4 K/mm3 (0.0-0.8); Platelet Count 425 K/mm3 (140-440); Red Blood Count 3.11 M/mm3 (3.65-5.03); Red Cell Distribution Width 17.1 % (13.2-15.2)
[2022-02-22 05:02] LABS: Hematocrit 27.9 % (35.5-45.6); Hemoglobin 10.3 gm/dl (11.8-15.2)
[2022-02-22 05:21] LABS: Blood Urea Nitrogen 13 mg/dL (9-20); Calcium 8.6 mg/dL (8.4-10.2); Hemolysis Index 3
[2022-02-22 05:33] LABS: BUN/Creatinine Ratio 43
[2022-02-22] MEDS: BUDESONIDE 0.5 MG/2 ML NEBU IH SCH (08:39)
[2022-02-22] MEDS: ARFORMOTEROL 15 MCG/2 ML NEBU IH SCH (08:39)
[2022-02-22] MEDS: HEPARIN 5,000 UNIT/1 ML VIAL SUB-Q SCH ×2 (09:13→22:10)
[2022-02-22] MEDS: FAMOTIDINE 20 MG TAB PO SCH ×2 (09:13→22:10)
[2022-02-22] MEDS ORDERED: LORazepam 2 MG/ML VIAL IV ONE (09:29)
--- NOTE | 2022-02-22 10:37 | Consultation ---
History of Present Illness Consult date: 02/22/22 Reason for consult: COPD, hypoxemia, other (COVID) History of present illness: 61 y/o male who appears older than stated age, current smoker admitted with acute respiratory failure requiring continuous bipap. Was originally admitted to the floor but transferred to [facility] yesterday afternoon after COVID test resulted positive. Currently on high dose steroids and bipap. Had increased work of breathing using accessory muscles this am when off bipap attempting to eat breakfast. Never desatted. came to visit and given the level of COPD he has (per , he has "very bad lungs" and has been detioriating and losing weight to the point they were doing an extensive malignancy work up on him but so far negative) we allowed the to visit as I discussed code status with him. Prior to her arrival, he stated he would not want to be on a ventilator but I asked that he and his talk about this. Remainder of the review is negative. Past History Past Medical History: COPD Past Surgical History: No surgical history Family history: hypertension Medications and Allergies Allergies Allergy/AdvReac Type Severity Reaction Status Date / Time No Known Allergies Allergy Unverified 02/20/22 11:55 Home Medications Medication Instructions Recorded Confirmed Last Taken Type ALBUTEROL NEB's [Proventil 0.083% 2.5 mg IH Q6H PRN 02/21/22 02/21/22 Unknown History NEBS] Budesonide/Formoterol Fumarate 10.2 gm IH Q12H 02/21/22 02/21/22 Unknown History [Symbicort 160-4.5 Mcg Inhaler] Tiotropium [Spiriva] 18 mcg IH QDAY 02/21/22 02/21/22 Unknown History Active Meds: Active Medications Acetaminophen (Acetaminophen 325 Mg Tab) 650 mg PO Q4H PRN PRN Reason: Pain MILD(1-3)/Fever >100.5/SALEEM Albuterol (Albuterol 2.5 Mg/3 Ml Nebu) 2.5 mg IH Q4HRT PRN PRN Reason: Shortness Of Breath Arformoterol Tartrate (Arformoterol 15 Mcg/2 Ml Nebu) 15 mcg IH Q12HRT [facility]ION[facility] Last Admin: 02/22/22 08:39 Dose: 15 mcg Budesonide (Budesonide 0.5 Mg/2 Ml Nebu) 0.5 mg IH Q12HRT [facility] Last Admin: 02/22/22 08:39 Dose: 0.5 mg Famotidine (Famotidine 20 Mg Tab) 20 mg PO BID [facility] Last Admin: 02/22/22 09:13 Dose: 20 mg Heparin Sodium (Porcine) (Heparin 5,000 Unit/1 Ml Vial) 5,000 unit SUB-Q Q12HR [facility] Last Admin: 02/22/22 09:13 Dose: 5,000 unit Remdesivir 100 mg/ Sodium (Chloride) 250 mls @ 500 mls/hr IV Q24HR@1400 [facility] Stop: 02/25/22 14:29 Dexmedetomidine HCl 400 mcg/ (Sodium Chloride) 104 mls @ 1.851 mls/hr IV TITRATE [facility]; Protocol Methylprednisolone Sodium Succinate (Methylprednisolone Sod Succinate 125 Mg/2 Ml Inj) 60 mg IV Q6HR [facility] Last Admin: 02/22/22 05:31 Dose: 60 mg Metoclopramide HCl (Metoclopramide 10 Mg/2 Ml Inj) 10 mg IV Q6H PRN PRN Reason: Nausea And Vomiting Morphine Sulfate (Morphine 2 Mg/1 Ml Inj) 2 mg IV Q4H PRN PRN Reason: Pain, Moderate (4-6) Ondansetron HCl (Ondansetron 4 Mg/2 Ml Inj) 4 mg IV Q8H PRN PRN Reason: Nausea And Vomiting Oxycodone/Acetaminophen (Oxycodone /Acetaminophen 5-325mg Tab) 1 tab PO Q6H PRN PRN Reason: Pain, Moderate (4-6) Sodium Chloride (Sodium Chloride 0.9% 10 Ml Flush Syringe) 10 ml IV BID [facility] Last Admin: 02/22/22 09:13 Dose: 10 ml Sodium Chloride (Sodium Chloride 0.9% 10 Ml Flush Syringe) 10 ml IV PRN PRN PRN Reason: LINE FLUSH Sodium Chloride (Sodium Chloride 0.9% 50 Ml Ivpb) 50 ml IV Q24HR@1400 [facility] Stop: 02/26/22 14:01 Review of Systems All systems: negative Physical Examination Vital signs: Vital Signs Pulse Resp BP Pulse Ox 120 H 24 143/72 100 02/20/22 11:46 02/20/22 11:46 02/20/22 11:46 02/20/22 11:46 General appearance: appears uncomfortable, other (appears older than stated age) Eyes: non-icteric ENT: other (full face mask bipap on at present) Neck: supple Effort: very labored Ascultation: Bilateral: diminished breath sounds Results - Laboratory Findings CBC and BMP: 02/22/22 04:41 02/22/22 04:41 ABG ABG pH 7.381 pH Units (7.350-7.450) 02/20/22 16:08 ABG pCO2 43.6 mm Hg 02/20/22 16:08 ABG pO2 195.7 mm Hg (80.0-90.0) H 02/20/22 16:08 ABG O2 Saturation 99.2 % (95.0-99.0) H 02/20/22 16:08 PT/INR, D-dimer PT 15.4 Sec. (12.2-14.9) H 02/20/22 13:33 INR 1.07 (0.87-1.13) 02/20/22 13:33 D-Dimer 335.95 ng/mlDDU (0-234) H 02/21/22 09:20 Abnormal lab findings: Abnormal Labs 02/20/22 02/20/22 02/20/22 13:33 13:33 13:33 WBC RBC Hgb Hct MCH 34 H MCHC 39 H* RDW 16.8 H Lymph % (Auto) Lymph # (Auto) Seg Neutrophils % PT 15.4 H D-Dimer ABG pO2 ABG O2 Saturation ABG Hemoglobin Sodium Creatinine Glucose Lactic Acid 3.70 H* Magnesium Ferritin ALT Total Creatine Kinase CK-MB (CK-2) CK-MB (CK-2) Rel Index Troponin T C-Reactive Protein Albumin HDL Cholesterol Coronavirus (PCR) 02/20/22 02/20/22 02/20/22 13:39 13:39 13:39 WBC RBC Hgb Hct MCH MCHC RDW Lymph % (Auto) Lymph # (Auto) Seg Neutrophils % PT D-Dimer ABG pO2 ABG O2 Saturation ABG Hemoglobin Sodium Creatinine 0.3 L Glucose 139 H Lactic Acid Magnesium 2.60 H Ferritin ALT 5 L Total Creatine Kinase 54 L CK-MB (CK-2) 6.4 H CK-MB (CK-2) Rel Index 11.8 H Troponin T 0.141 H* C-Reactive Protein Albumin 3.4 L HDL Cholesterol 34 L Coronavirus (PCR) 02/20/22 02/20/22 02/21/22 14:34 16:08 05:28 WBC 3.2 L RBC Hgb 11.4 L Hct 32.3 L MCH MCHC 35 H RDW 16.4 H Lymph % (Auto) Lymph # (Auto) 0.6 L Seg Neutrophils % 73.5 H PT D-Dimer ABG pO2 195.7 H ABG O2 Saturation 99.2 H ABG Hemoglobin 12.7 L Sodium Creatinine Glucose Lactic Acid 2.10 H* Magnesium Ferritin ALT Total Creatine Kinase CK-MB (CK-2) CK-MB (CK-2) Rel Index Troponin T C-Reactive Protein Albumin HDL Cholesterol Coronavirus (PCR) 02/21/22 02/21/22 02/21/22 05:28 09:20 09:20 WBC RBC Hgb Hct MCH MCHC RDW Lymph % (Auto) Lymph # (Auto) Seg Neutrophils % PT D-Dimer 335.95 H ABG pO2 ABG O2 Saturation ABG Hemoglobin Sodium 136 L Creatinine 0.2 L Glucose 141 H Lactic Acid Magnesium Ferritin 1666.0 H ALT < 5 L Total Creatine Kinase CK-MB (CK-2) CK-MB (CK-2) Rel Index Troponin T C-Reactive Protein Albumin 3.0 L HDL Cholesterol Coronavirus (PCR) 02/21/22 02/21/22 02/22/22 09:20 11:30 04:41 WBC RBC 3.11 L Hgb 10.3 L Hct 27.9 L MCH 33 H MCHC 37 H RDW 17.1 H Lymph % (Auto) 12.1 L Lymph # (Auto) 0.7 L Seg Neutrophils % 80.9 H PT D-Dimer ABG pO2 ABG O2 Saturation ABG Hemoglobin Sodium Creatinine Glucose Lactic Acid Magnesium Ferritin ALT Total Creatine Kinase CK-MB (CK-2) CK-MB (CK-2) Rel Index Troponin T C-Reactive Protein 6.70 H Albumin HDL Cholesterol Coronavirus (PCR) Positive A 02/22/22 02/22/22 04:41 04:41 WBC RBC Hgb Hct MCH MCHC RDW Lymph % (Auto) Lymph # (Auto) Seg Neutrophils % PT D-Dimer ABG pO2 ABG O2 Saturation ABG Hemoglobin Sodium Creatinine 0.3 L Glucose 116 H Lactic Acid Magnesium Ferritin 1116.0 H ALT Total Creatine Kinase CK-MB (CK-2) CK-MB (CK-2) Rel Index Troponin T C-Reactive Protein 2.70 H Albumin HDL Cholesterol Coronavirus (PCR) - Diagnostic Findings Chest x-ray: image reviewed Assessment and Plan 61 y/o male with acute respiratory failure from COPD exacerbation secondary to COVID 1. high dose steroids 2. Bipap PRN and QHS 3. Remdesivir 4. CRP to low for Actemra 5. Negative fluid balance daily 6. Guarded prognosis, did well with ativan PRN so will initiate precedex therapy to help prevent intubation. Long discussion with outside of room and how the mortality would increase if placed on ventilator. Expressed understanding and they will discuss more.
--- NOTE | 2022-02-22 11:20 | Progress Note ---
Assessment and Plan Assessment and plan: This is a 61-year-old male with current nicotine abuse, HTN and COPD admitted with COPD exacerbation secondary to COVID-19 infection Neuro: Anxiety? -Given one-time dose of Ativan IV -Sedated with Precedex drip -RASS goal 0-1 -Reorientation as needed -Maintain sleep-wake cycle -As needed analgesia Cardiac: h/o hypertension -Cardiology consulted, appreciate recommendations -Blood pressure monitoring per protocol -Hold home antihypertension regimen Respiratory: Acute hypoxemic respiratory failure, COPD exacerbation, h/o COPD, current nicotine abuse -Pulmonology consulted, appreciate recommendations -s/p Ventimask -Currently on continuous BiPAP -SPO2 monitor per protocol -Supplemental oxygen as needed -Pulmonary hygiene -Albuterol, Pulmicort, Brovana GI: Moderate protein calorie malnutrition -24 hours + 625 ml -Regular diet -Nutrition supplementation : NAD -Monitor intake and output -Renally dose medications -Avoid nephrotoxic medications -Trend BMP ID: COVID 19 infection -Infectious disease consulted, appreciate recommendation -COVID-19 PCR positive -Solu-Medrol 60 mg every 6 hours -Antibiotic discontinued -Remdesivir for 5 days (02/21-02/26) -Contact/droplet precautions -f/u blood culture -Monitor WBC and temperature curve -Trend COVID-19 inflammatory markers -Anticoagulation per protocol Endo: NAD -Avoid hypoglycemia Heme: Leukopenia (resolved) -Trend CBC -Transfuse hemoglobin less than 7 -SCDs to BLE while in bed The high probability of a clinically significant, sudden or life threatening deterioration of the [pulm/ID] system(s) required my full and direct attention, intervention and personal management. The aggregate critical care time was [60] minutes. This time is in addition to time spent performing reported procedures but includes the following: [x] Data Review and interpretation [x] Patient assessment and monitoring of vital signs [x] Documentation [x] Medication orders and management Disposition Plan: imcu Total Time Spent with Patient (Minutes): 60 History Interval history: This is a 61-year-old male with current nicotine abuse, HTN and COPD who pre sented to emergency department on 02/20 with shortness of breath over the past 2 to 3 days, cough with sputum production and increasing shortness of breath not responding to inhalers or nebulizer treatments. In the emergency department patient was tachycardic and tachypneic and SPO2 was in the 70s on room air. Patient was given albuterol, magnesium, Solu-Medrol by EMS on arrival. Recommend the emergency department. CXR wet read with right lower lobe pneumonia. Patient was admitted to the hospitalist service with acute hypoxic respiratory failure, right lower lobe pneumonia and COPD exacerbation with consult to pulmonology. Hospital course to date: 02/21: No acute events overnight, COVID-19 PCR positive, infectious disease consulted started on remdesivir 02/22: Patient transferred to [facility], currently on CPAP with increased work of breathing. Given 1 dose of Ativan which helped work of breathing and heart rate decreased. Hospitalist Physical - Constitutional Vitals: Temp Pulse Resp BP Pulse Ox 97.4 F L 87 18 101/57 100 02/22/22 04:00 02/22/22 08:44 02/22/22 08:44 02/22/22 08:39 02/22/22 08:44 General appearance: Present: severe distress, cachectic - EENT Eyes: Present: PERRL, EOM intact ENT: hearing intact, dentition normal - Neck Neck: Present: normal ROM - Respiratory Respiratory effort: labored, accessory muscle use Respiratory: bilateral: diminished, wheezing - Cardiovascular Rhythm: regular Heart Sounds: Present: S1 & S2. Absent: systolic murmur, diastolic murmur - Extremities Extremities: no ischemia, pulses intact, pulses symmetrical, No edema, normal temperature, normal color Peripheral Pulses: within normal limits - Abdominal General gastrointestinal: soft, non-tender, non-distended, normal bowel sounds - Integumentary Integumentary: Present: warm, dry - Psychiatric Psychiatric: cooperative, other (anxious) - Neurologic Neurologic: CNII-XII intact, moves all extremities - Allied Health Allied health notes reviewed: nursing, RT HEART Score - HEART Score Troponin: Troponin T TNR 02/20/22 14:34 Results - Labs CBC & Chem 7: 02/22/22 04:41 02/22/22 04:41 Labs: Laboratory Last Values WBC 6.1 K/mm3 (4.5-11.0) 02/22/22 04:41 RBC 3.11 M/mm3 (3.65-5.03) L 02/22/22 04:41 Hgb 10.3 gm/dl (11.8-15.2) L 02/22/22 04:41 Hct 27.9 % (35.5-45.6) L 02/22/22 04:41 MCV 90 fl (84-94) 02/22/22 04:41 MCH 33 pg (28-32) H 02/22/22 04:41 MCHC 37 % (32-34) H 02/22/22 04:41 RDW 17.1 % (13.2-15.2) H 02/22/22 04:41 Plt Count 425 K/mm3 (140-440) 02/22/22 04:41 Lymph % (Auto) 12.1 % (13.4-35.0) L 02/22/22 04:41 [place] % (Auto) 7.0 % (0.0-7.3) 02/22/22 04:41 Eos % (Auto) 0.0 % (0.0-4.3) 02/22/22 04:41 Baso % (Auto) 0.0 % (0.0-1.8) 02/22/22 04:41 Lymph # (Auto) 0.7 K/mm3 (1.2-5.4) L 02/22/22 04:41 [place] # (Auto) 0.4 K/mm3 (0.0-0.8) 02/22/22 04:41 Eos # (Auto) 0.0 K/mm3 (0.0-0.4) 02/22/22 04:41 Baso # (Auto) 0.0 K/mm3 (0.0-0.1) 02/22/22 04:41 Seg Neutrophils % 80.9 % (40.0-70.0) H 02/22/22 04:41 Seg Neutrophils # 4.9 K/mm3 (1.8-7.7) 02/22/22 04:41 PT 15.4 Sec. (12.2-14.9) H 02/20/22 13:33 INR 1.07 (0.87-1.13) 02/20/22 13:33 D-Dimer 335.95 ng/mlDDU (0-234) H 02/21/22 09:20 ABG pH 7.381 pH Units (7.350-7.450) 02/20/22 16:08 ABG pCO2 43.6 mm Hg 02/20/22 16:08 ABG pO2 195.7 mm Hg (80.0-90.0) H 02/20/22 16:08 ABG HCO3 25.3 mmol/L (20.0-26.0) 02/20/22 16:08 ABG O2 Saturation 99.2 % (95.0-99.0) H 02/20/22 16:08 ABG O2 Content 17.7 (0.0-44) 02/20/22 16:08 ABG Base Excess 0.0 mmol/L (-2.0-3.0) 02/20/22 16:08 ABG Hemoglobin 12.7 gm/dl (14.0-18.0) L 02/20/22 16:08 ABG Carboxyhemoglobin 1.9 % (0.0-5.0) 02/20/22 16:08 ABG Methemoglobin 0.6 % (0.0-1.5) 02/20/22 16:08 Oxyhemoglobin 96.7 % (95.0-99.0) 02/20/22 16:08 FiO2 50 % 02/20/22 16:08 Sodium 140 mmol/L (137-145) 02/22/22 04:41 Potassium 4.1 mmol/L (3.6-5.0) 02/22/22 04:41 Chloride 105.4 mmol/L (98-107) 02/22/22 04:41 Carbon Dioxide 25 mmol/L (22-30) 02/22/22 04:41 Anion Gap 14 mmol/L 02/22/22 04:41 BUN 13 mg/dL (9-20) 02/22/22 04:41 Creatinine 0.3 mg/dL (0.8-1.3) L 02/22/22 04:41 Estimated GFR > 60 ml/min 02/22/22 04:41 BUN/Creatinine Ratio 43 % 02/22/22 04:41 Glucose 116 mg/dL (75-100) H 02/22/22 04:41 Lactic Acid 2.10 mmol/L (0.7-2.0) H* 02/20/22 14:34 Calcium 8.6 mg/dL (8.4-10.2) 02/22/22 04:41 Magnesium TNR 02/20/22 14:34 Ferritin 1116.0 ng/mL (30.0-300.0) H 02/22/22 04:41 Total Bilirubin 0.40 mg/dL (0.1-1.2) 02/21/22 05:28 AST 11 units/L (5-40) 02/21/22 05:28 ALT < 5 units/L (7-56) L 02/21/22 05:28 Alkaline Phosphatase 87 units/L (35-129) 02/21/22 05:28 Lactate Dehydrogenase 176 units/L (91-180) 02/22/22 04:41 Total Creatine Kinase TNR 02/20/22 14:34 CK-MB (CK-2) TNR 02/20/22 14:34 CK-MB (CK-2) Rel Index TNR 02/20/22 14:34 Troponin T TNR 02/20/22 14:34 C-Reactive Protein 2.70 mg/dL (0.00-1.30) H 02/22/22 04:41 NT-Pro-B Natriuret Pep 146.4 pg/mL (0-900) 02/20/22 13:39 Total Protein 6.5 g/dL (6.3-8.2) 02/21/22 05:28 Albumin 3.0 g/dL (3.9-5) L 02/21/22 05:28 Albumin/Globulin Ratio 0.9 % 02/21/22 05:28 Triglycerides 140 mg/dL (2-149) 02/20/22 13:39 Cholesterol 154 mg/dL (50-199) 02/20/22 13:39 LDL Cholesterol Direct 90 mg/dL (50-130) 02/20/22 13:39 HDL Cholesterol 34 mg/dL (40-59) L 02/20/22 13:39 Cholesterol/HDL Ratio 4.52 % 02/20/22 13:39 Lipase TNR 02/20/22 14:34 Urine Color Yellow (Yellow) 02/20/22 18:53 Urine Turbidity Cloudy (Clear) 02/20/22 18:53 Specific [place] (Man) 1.020 (1.003-1.030) 02/20/22 18:53 Ur Protein (Man) 1+ mg/dL (Negative) 02/20/22 18:53 Ur Ketones (Man) Negative (Negative) 02/20/22 18:53 Ur Nitrite (Man) Negative (Negative) 02/20/22 18:53 Ur Reducing Substances Not Reportable 02/20/22 18:53 Urine Bilirubin (Man) Negative (Negative) 02/20/22 18:53 Leukocyte Esterase (Man) Negative (Negative) 02/20/22 18:53 Urine WBC (Auto) 3.0 /HPF (0.0-6.0) 02/20/22 18:53 Urine RBC (Auto) 1.0 /HPF (0.0-6.0) 02/20/22 18:53 Urine RBC (Manual) Negative (Negative) 02/20/22 18:53 Urine Mucus 1+ /HPF 02/20/22 18:53 Urine Opiates Screen Negative 02/20/22 18:53 Urine Methadone Screen Negative 02/20/22 18:53 Ur Barbiturates Screen Negative 02/20/22 18:53 Ur Phencyclidine Scrn Negative 02/20/22 18:53 Ur Amphetamines Screen Negative 02/20/22 18:53 U Benzodiazepines Scrn Negative 02/20/22 18:53 Urine Cocaine Screen Negative 02/20/22 18:53 U Marijuana (THC) Screen Negative 02/20/22 18:53 Drugs of Abuse Note Disclamer 02/20/22 18:53 Coronavirus (PCR) Positive (Negative) A 02/21/22 11:30 Microbiology: Microbiology 02/20/22 13:39 Peripheral/Venous Blood Culture - Preliminary NO GROWTH AFTER 24 HOURS 02/20/22 13:39 Peripheral/Venous Blood Culture - Preliminary NO GROWTH AFTER 24 HOURS Linder/IV: Voiding Method Urinal Active Medications - Current Medications Current Medications: Generic Name Dose Route Start Last Admin Trade Name Freq PRN Reason Stop Dose Admin Acetaminophen 650 mg 02/20/22 17:46 Acetaminophen 325 Mg Tab PO Q4H PRN Pain MILD(1-3)/Fever >100.5/SALEEM Albuterol 2.5 mg 02/21/22 12:00 Albuterol 2.5 Mg/3 Ml Nebu IH Q4HRT PRN Shortness Of Breath Arformoterol Tartrate 15 mcg 02/21/22 20:00 02/22/22 08:39 Arformoterol 15 Mcg/2 Ml Nebu IH 15 mcg Q12HRT LIONEL Administration Budesonide 0.5 mg 02/21/22 20:00 02/22/22 08:39 Budesonide 0.5 Mg/2 Ml Nebu IH 0.5 mg Q12HRT LIONEL Administration Famotidine 20 mg 02/20/22 22:00 02/22/22 09:13 Famotidine 20 Mg Tab PO 20 mg BID LIONEL Administration Heparin Sodium (Porcine) 5,000 unit 02/20/22 22:00 02/22/22 09:13 Heparin 5,000 Unit/1 Ml Vial SUB-Q 5,000 unit Q12HR LIONEL Administration Remdesivir 100 mg/ Sodium 250 mls @ 500 mls/hr 02/22/22 14:00 Chloride IV 02/25/22 14:29 Q24HR@1400 [facility] Dexmedetomidine HCl 400 mcg/ 104 mls @ 1.851 mls/hr 02/22/22 11:00 Sodium Chloride IV TITRATE [facility] Protocol 0.2 MCG/KG/HR Methylprednisolone Sodium Succinate 60 mg 02/22/22 00:00 02/22/22 05:31 Methylprednisolone Sod Succinate 125 Mg/2 Ml Inj IV 60 mg Q6HR LIONEL Administration Metoclopramide HCl 10 mg 02/20/22 17:46 Metoclopramide 10 Mg/2 Ml Inj IV Q6H PRN Nausea And Vomiting Morphine Sulfate 2 mg 02/20/22 17:46 Morphine 2 Mg/1 Ml Inj IV Q4H PRN Pain, Moderate (4-6) Ondansetron HCl 4 mg 02/20/22 17:46 Ondansetron 4 Mg/2 Ml Inj IV Q8H PRN Nausea And Vomiting Oxycodone/Acetaminophen 1 tab 02/20/22 17:46 Oxycodone /Acetaminophen 5-325mg Tab PO Q6H PRN Pain, Moderate (4-6) Sodium Chloride 10 ml 02/20/22 22:00 02/22/22 09:13 Sodium Chloride 0.9% 10 Ml Flush Syringe IV 10 ml BID LIONEL Administration Sodium Chloride 10 ml 02/20/22 17:46 Sodium Chloride 0.9% 10 Ml Flush Syringe IV PRN PRN LINE FLUSH Sodium Chloride 50 ml 02/22/22 22:30 Sodium Chloride 0.9% 50 Ml Ivpb IV 02/26/22 14:01 Q24HR@1400 [facility] Nutrition/Malnutrition Assess - Dietary Evaluation Nutrition/Malnutrition Findings: Nutrition Notes Start: 02/21/22 14:17 Freq: Status: Active Protocol: Document 02/21/22 14:18 ALLA (Rec: 02/21/22 14:27 ALLA [email or web address]) Nutrition Notes Need for Assessment generated from: MD Order Initial or Follow up Assessment Current Diagnosis COPD,Hypertension,Respiratory Failure Other Pertinent Diagnosis RLL pneu, COPD exacerbation, r /o COVID-19 Current Diet Regular + Ensure Enlive (per MD order) Labs/Tests Reviewed Pertinent Medications Solumedrol Height 5 ft 5 in Weight 35.6 kg [place] Body Weight (kg) 61.81 BMI 13.0 Weight Status Underweight Subjective/Other Information RD consulted for poor oral intake; pt also screened for low BMI. Pt admitted with c/o increasing SOB for last 2-3 days. Pt on BiPap support. 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 No Is Patient Ambulatory and/or Out of Bed Yes REE-([place]-ambulatory/OOB) [ 1407.744 [id number]] Kcal/Kg value to use for calculation 50 Approximate Energy Requirements Using 1780 kcal/Kg Calculation Used for Recommendations Kcal/kg Additional Notes Pro needs 1.2-1.5g/k-53g/ day Fluid needs 1ml/kcal Nutrition Intervention Change Diet Order: Continue current diet order Add Supplement/Snack (indicate name/kcal Ensure High Protein TID ( /protein ) Ensure Enlive not in stock until February 2022) Provides kCal: 480 Provides Protein (gm) 48 Goal #1 PO intake of meals plus ONS to meet 100% of energy and pro needs Goal #2 Wt maintenance and/or gain Anticipated Discharge Needs: Continue ONS 2-3 times daily for wt maintenance Follow-Up By: 02/24/22 Additional Comments F/U: intakes (meals/ONS), COVID-19 test results
[2022-02-22 12:36] LABS: ABG Base Excess 1.6 mmol/L (-2.0-3.0); ABG HCO3 26.6 mmol/L (20.0-26.0); ABG Methemoglobin 0.6 % (0.0-1.5); ABG Oxygen Saturation 98.2 % (95.0-99.0); ABG PCO2 43.5 mm Hg; ABG PH 7.405 pH Units (7.350-7.450); ABG PO2 116.2 mm Hg (80.0-90.0)
[2022-02-22] MEDS: REMDESIVIR 100 MG in SODIUM CHLORIDE 0.9% 250ML 250 ML IV SCH (14:08)
[2022-02-22] MEDS: SODIUM CHLORIDE 0.9% 50 ML IVPB IV SCH (22:10)
[2022-02-23] MEDS: methylPREDNISolone Sod Succinate 125 MG/2 ML INJ IV SCH ×4 (00:10→18:31)
[2022-02-23 06:07] LABS: Alanine Aminotransferase 7 units/L (7-56); Albumin 2.8 g/dL (3.9-5); Blood Urea Nitrogen 21 mg/dL (9-20); Calcium 8.7 mg/dL (8.4-10.2); Hemolysis Index 2
[2022-02-23 06:13] LABS: BUN/Creatinine Ratio 70
[2022-02-23 07:07] LABS: Hematocrit 28.7 % (35.5-45.6); Hemoglobin 10.3 gm/dl (11.8-15.2); Mean Corpuscular HGB Conc 36 % (32-34); Mean Corpuscular Volume 84 fl (84-94); Platelet Count 418 K/mm3 (140-440); Red Cell Distribution Width 16.9 % (13.2-15.2)
[2022-02-23] MEDS: HEPARIN 5,000 UNIT/1 ML VIAL SUB-Q SCH (09:51)
[2022-02-23] MEDS: FAMOTIDINE 20 MG TAB PO SCH (09:51)
[2022-02-23] MEDS: BUDESONIDE 0.5 MG/2 ML NEBU IH SCH ×2 (11:53→21:21)
[2022-02-23] MEDS: ARFORMOTEROL 15 MCG/2 ML NEBU IH SCH ×2 (11:53→21:20)
--- NOTE | 2022-02-23 12:45 | Progress Note ---
Assessment and Plan 61 y/o male with acute respiratory failure from COPD exacerbation secondary to COVID 02/23/22: Had some bradycardia this am. Concern for precedex induced vs remdesivir or a combination of both. Will stop precedex and put on PRN ativan. Did will with 0.5 yesterday so will do 0.6 IV q4. Bipap PRN and QHS. Tolerating HFNC right now. 1. high dose steroids 2. Bipap PRN and QHS 3. Remdesivir 4. CRP to low for Actemra 5. Negative fluid balance daily 6. Guarded prognosis, did well with ativan PRN so will initiate precedex thera py to help prevent intubation. Long discussion with outside of room and how the mortality would increase if placed on ventilator. Expressed understanding and they will discuss more. Subjective Date of service: 02/23/22 Interval history: No acute events. Tolerating HFNC. Still on Precedex Objective Vital Signs - 12hr 02/23/22 02/23/22 02/23/22 01:01 02:00 03:00 Temperature Pulse Rate 52 L 49 L 50 L Pulse Rate [ From Monitor] Respiratory 20 19 20 Rate Blood Pressure 92/66 90/62 90/62 O2 Sat by Pulse 99 98 Oximetry 02/23/22 02/23/22 02/23/22 03:33 04:00 05:00 Temperature 97.3 F L Pulse Rate 53 L 53 L 53 L Pulse Rate [ 53 L From Monitor] Respiratory 14 15 18 Rate Blood Pressure 100/62 91/64 96/65 O2 Sat by Pulse 100 99 99 Oximetry 02/23/22 02/23/22 02/23/22 06:00 09:39 11:46 Temperature Pulse Rate 53 L 70 Pulse Rate [ From Monitor] Respiratory 14 17 Rate Blood Pressure 95/62 97/63 O2 Sat by Pulse 99 99 100 Oximetry Constitutional: appears uncomfortable, other (appears older than stated age) Eyes: non-icteric ENT: other (full face mask bipap on at present) Neck: supple Effort: very labored Ascultation: Bilateral: diminished breath sounds CBC and BMP: 02/23/22 04:58 02/23/22 04:58 ABG, PT/INR, D-dimer: ABG ABG pH 7.405 pH Units (7.350-7.450) 02/22/22 12:20 ABG pCO2 43.5 mm Hg 02/22/22 12:20 ABG pO2 116.2 mm Hg (80.0-90.0) H 02/22/22 12:20 ABG O2 Saturation 98.2 % (95.0-99.0) 02/22/22 12:20 PT/INR, D-dimer PT 15.4 Sec. (12.2-14.9) H 02/20/22 13:33 INR 1.07 (0.87-1.13) 02/20/22 13:33 D-Dimer 262.94 ng/mlDDU (0-234) H 02/23/22 04:58 Abnormal lab findings: Abnormal Labs 02/20/22 02/20/22 02/20/22 13:33 13:33 13:33 WBC RBC Hgb Hct MCH 34 H MCHC 39 H* RDW 16.8 H Lymph % (Auto) Lymph # (Auto) Seg Neutrophils % PT 15.4 H D-Dimer ABG pO2 ABG HCO3 ABG O2 Saturation ABG Hemoglobin Sodium BUN Creatinine Glucose Lactic Acid 3.70 H* Magnesium Ferritin ALT Total Creatine Kinase CK-MB (CK-2) CK-MB (CK-2) Rel Index Troponin T C-Reactive Protein Total Protein Albumin HDL Cholesterol Coronavirus (PCR) 02/20/22 02/20/22 02/20/22 13:39 13:39 13:39 WBC RBC Hgb Hct MCH MCHC RDW Lymph % (Auto) Lymph # (Auto) Seg Neutrophils % PT D-Dimer ABG pO2 ABG HCO3 ABG O2 Saturation ABG Hemoglobin Sodium BUN Creatinine 0.3 L Glucose 139 H Lactic Acid Magnesium 2.60 H Ferritin ALT 5 L Total Creatine Kinase 54 L CK-MB (CK-2) 6.4 H CK-MB (CK-2) Rel Index 11.8 H Troponin T 0.141 H* C-Reactive Protein Total Protein Albumin 3.4 L HDL Cholesterol 34 L Coronavirus (PCR) 02/20/22 02/20/22 02/21/22 14:34 16:08 05:28 WBC 3.2 L RBC Hgb 11.4 L Hct 32.3 L MCH MCHC 35 H RDW 16.4 H Lymph % (Auto) Lymph # (Auto) 0.6 L Seg Neutrophils % 73.5 H PT D-Dimer ABG pO2 195.7 H ABG HCO3 ABG O2 Saturation 99.2 H ABG Hemoglobin 12.7 L Sodium BUN Creatinine Glucose Lactic Acid 2.10 H* Magnesium Ferritin ALT Total Creatine Kinase CK-MB (CK-2) CK-MB (CK-2) Rel Index Troponin T C-Reactive Protein Total Protein Albumin HDL Cholesterol Coronavirus (PCR) 02/21/22 02/21/22 02/21/22 05:28 09:20 09:20 WBC RBC Hgb Hct MCH MCHC RDW Lymph % (Auto) Lymph # (Auto) Seg Neutrophils % PT D-Dimer 335.95 H ABG pO2 ABG HCO3 ABG O2 Saturation ABG Hemoglobin Sodium 136 L BUN Creatinine 0.2 L Glucose 141 H Lactic Acid Magnesium Ferritin 1666.0 H ALT < 5 L Total Creatine Kinase CK-MB (CK-2) CK-MB (CK-2) Rel Index Troponin T C-Reactive Protein Total Protein Albumin 3.0 L HDL Cholesterol Coronavirus (PCR) 02/21/22 02/21/22 02/22/22 09:20 11:30 04:41 WBC RBC 3.11 L Hgb 10.3 L Hct 27.9 L MCH 33 H MCHC 37 H RDW 17.1 H Lymph % (Auto) 12.1 L Lymph # (Auto) 0.7 L Seg Neutrophils % 80.9 H PT D-Dimer ABG pO2 ABG HCO3 ABG O2 Saturation ABG Hemoglobin Sodium BUN Creatinine Glucose Lactic Acid Magnesium Ferritin ALT Total Creatine Kinase CK-MB (CK-2) CK-MB (CK-2) Rel Index Troponin T C-Reactive Protein 6.70 H Total Protein Albumin HDL Cholesterol Coronavirus (PCR) Positive A 02/22/22 02/22/22 02/22/22 04:41 04:41 12:20 WBC RBC Hgb Hct MCH MCHC RDW Lymph % (Auto) Lymph # (Auto) Seg Neutrophils % PT D-Dimer ABG pO2 116.2 H ABG HCO3 26.6 H ABG O2 Saturation ABG Hemoglobin 11.9 L Sodium BUN Creatinine 0.3 L Glucose 116 H Lactic Acid Magnesium Ferritin 1116.0 H ALT Total Creatine Kinase CK-MB (CK-2) CK-MB (CK-2) Rel Index Troponin T C-Reactive Protein 2.70 H Total Protein Albumin HDL Cholesterol Coronavirus (PCR) 02/23/22 02/23/22 02/23/22 04:58 04:58 04:58 WBC RBC Hgb Hct MCH MCHC RDW Lymph % (Auto) Lymph # (Auto) Seg Neutrophils % PT D-Dimer 262.94 H ABG pO2 ABG HCO3 ABG O2 Saturation ABG Hemoglobin Sodium 136 L BUN 21 H Creatinine 0.3 L Glucose 104 H Lactic Acid Magnesium Ferritin 806.9 H ALT Total Creatine Kinase CK-MB (CK-2) CK-MB (CK-2) Rel Index Troponin T C-Reactive Protein Total Protein 5.8 L Albumin 2.8 L HDL Cholesterol Coronavirus (PCR) 02/23/22 04:58 WBC 4.3 L RBC 3.40 L Hgb 10.3 L Hct 28.7 L MCH MCHC 36 H RDW 16.9 H Lymph % (Auto) Lymph # (Auto) Seg Neutrophils % PT D-Dimer ABG pO2 ABG HCO3 ABG O2 Saturation ABG Hemoglobin Sodium BUN Creatinine Glucose Lactic Acid Magnesium Ferritin ALT Total Creatine Kinase CK-MB (CK-2) CK-MB (CK-2) Rel Index Troponin T C-Reactive Protein Total Protein Albumin HDL Cholesterol Coronavirus (PCR)
[2022-02-23] MEDS: SODIUM CHLORIDE 0.9% 50 ML IVPB IV SCH (14:58)
[2022-02-23] MEDS: REMDESIVIR 100 MG in SODIUM CHLORIDE 0.9% 250ML 250 ML IV SCH (14:58)
--- NOTE | 2022-02-23 15:49 | Progress Note ---
Assessment and Plan Assessment and plan: This is a 61-year-old male with current nicotine abuse, HTN and COPD admitted with COPD exacerbation secondary to COVID-19 infection Neuro: Anxiety? -As needed Ativan IV push -S/p Precedex drip -Reorientation as needed -Maintain sleep-wake cycle -As needed analgesia Cardiac: SB, h/o hypertension -Cardiology consulted, appreciate recommendations -Blood pressure monitoring per protocol -Hold home antihypertension regimen Respiratory: Acute hypoxemic respiratory failure, COPD exacerbation, h/o COPD, current nicotine abuse -Pulmonology consulted, appreciate recommendations -s/p Ventimask -BiPAP as needed -Wean to hyponasal cannula -SPO2 monitor per protocol -Supplemental oxygen as needed -Pulmonary hygiene -Albuterol, Pulmicort, Brovana GI: Moderate protein calorie malnutrition -24 hours -215 ml -Regular diet -Nutrition supplementation : NAD -Monitor intake and output -Renally dose medications -Avoid nephrotoxic medications -Trend BMP ID: COVID 19 infection -Infectious disease consulted, appreciate recommendation -COVID-19 PCR positive -Solu-Medrol 60 mg every 6 hours -Antibiotic discontinued -Remdesivir for 5 days (02/21-02/26) -Contact/droplet precautions -f/u blood culture -Monitor WBC and temperature curve -Trend COVID-19 inflammatory markers -Anticoagulation per protocol Endo: NAD -Avoid hypoglycemia Heme: Leukopenia (resolved) -Trend CBC -Transfuse hemoglobin less than 7 -SCDs to BLE while in bed The high probability of a clinically significant, sudden or life threatening deterioration of the [pulm/ID] system(s) required my full and direct attention, intervention and personal management. The aggregate critical care time was [60] minutes. This time is in addition to time spent performing reported procedures but includes the following: [x] Data Review and interpretation [x] Patient assessment and monitoring of vital signs [x] Documentation [x] Medication orders and management Disposition Plan: imcu Total Time Spent with Patient (Minutes): 60 History Interval history: This is a 61-year-old male with current nicotine abuse, HTN and COPD who presented to emergency department on 02/20 with shortness of breath over the past 2 to 3 days, cough with sputum production and increasing shortness of breath not responding to inhalers or nebulizer treatments. In the emergency department patient was tachycardic and tachypneic and SPO2 was in the 70s on room air. Patient was given albuterol, magnesium, Solu-Medrol by EMS on arrival. Recommend the emergency department. CXR wet read with right lower lobe pneumonia. Patient was admitted to the hospitalist service with acute hypoxic respiratory failure, right lower lobe pneumonia and COPD exacerbation with consu lt to pulmonology. Hospital course to date: 02/21: No acute events overnight, COVID-19 PCR positive, infectious disease consulted started on remdesivir 02/22: Patient transferred to [facility], currently on CPAP with increased work of breathing. Given 1 dose of Ativan which helped work of breathing and heart rate decreased. 02/23: Patient was on continuous BiPAP all night, this morning patient weaned to high flow nasal cannula with RT. Noted bradycardia overnight and patient is on remdesivir therefore Precedex will be stopped and as needed Ativan will be ordered. Patient states that he feels much better and instructed to self prone as tolerated. Hospitalist Physical - Constitutional Vitals: Temp Pulse Resp BP Pulse Ox 97.6 F 72 28 H 109/73 100 02/23/22 12:00 02/23/22 15:00 02/23/22 15:00 02/23/22 15:00 02/23/22 15:00 General appearance: Present: mild distress, cachectic - EENT Eyes: Present: PERRL, EOM intact ENT: clear oral mucosa, dentition normal - Neck Neck: Present: normal ROM - Respiratory Respiratory effort: normal Respiratory: bilateral: diminished - Cardiovascular Rhythm: regular Heart Sounds: Present: S1 & S2. Absent: systolic murmur, diastolic murmur - Extremities Extremities: no ischemia, pulses intact, pulses symmetrical, No edema, normal temperature, normal color, Full ROM Peripheral Pulses: within normal limits - Abdominal General gastrointestinal: soft, non-tender, non-distended, normal bowel sounds - Integumentary Integumentary: Present: warm, dry - Psychiatric Psychiatric: cooperative - Neurologic Neurologic: CNII-XII intact, no focal deficits, moves all extremities - Allied Health Allied health notes reviewed: nursing, RT HEART Score - HEART Score Troponin: Troponin T TNR 02/20/22 14:34 Results - Labs CBC & Chem 7: 02/23/22 04:58 02/23/22 04:58 Labs: Laboratory Last Values WBC 4.3 K/mm3 (4.5-11.0) L 02/23/22 04:58 RBC 3.40 M/mm3 (3.65-5.03) L 02/23/22 04:58 Hgb 10.3 gm/dl (11.8-15.2) L 02/23/22 04:58 Hct 28.7 % (35.5-45.6) L 02/23/22 04:58 MCV 84 fl (84-94) 02/23/22 04:58 MCH 30 pg (28-32) 02/23/22 04:58 MCHC 36 % (32-34) H 02/23/22 04:58 RDW 16.9 % (13.2-15.2) H 02/23/22 04:58 Plt Count 418 K/mm3 (140-440) 02/23/22 04:58 Lymph % (Auto) 12.1 % (13.4-35.0) L 02/22/22 04:41 [place] % (Auto) 7.0 % (0.0-7.3) 02/22/22 04:41 Eos % (Auto) 0.0 % (0.0-4.3) 02/22/22 04:41 Baso % (Auto) 0.0 % (0.0-1.8) 02/22/22 04:41 Lymph # (Auto) 0.7 K/mm3 (1.2-5.4) L 02/22/22 04:41 [place] # (Auto) 0.4 K/mm3 (0.0-0.8) 02/22/22 04:41 Eos # (Auto) 0.0 K/mm3 (0.0-0.4) 02/22/22 04:41 Baso # (Auto) 0.0 K/mm3 (0.0-0.1) 02/22/22 04:41 Seg Neutrophils % 80.9 % (40.0-70.0) H 02/22/22 04:41 Seg Neutrophils # 4.9 K/mm3 (1.8-7.7) 02/22/22 04:41 PT 15.4 Sec. (12.2-14.9) H 02/20/22 13:33 INR 1.07 (0.87-1.13) 02/20/22 13:33 D-Dimer 262.94 ng/mlDDU (0-234) H 02/23/22 04:58 ABG pH 7.405 pH Units (7.350-7.450) 02/22/22 12:20 ABG pCO2 43.5 mm Hg 02/22/22 12:20 ABG pO2 116.2 mm Hg (80.0-90.0) H 02/22/22 12:20 ABG HCO3 26.6 mmol/L (20.0-26.0) H 02/22/22 12:20 ABG O2 Saturation 98.2 % (95.0-99.0) 02/22/22 12:20 ABG O2 Content 16.3 (0.0-44) 02/22/22 12:20 ABG Base Excess 1.6 mmol/L (-2.0-3.0) 02/22/22 12:20 ABG Hemoglobin 11.9 gm/dl (14.0-18.0) L 02/22/22 12:20 ABG Carboxyhemoglobin 1.1 % (0.0-5.0) 02/22/22 12:20 ABG Methemoglobin 0.6 % (0.0-1.5) 02/22/22 12:20 Oxyhemoglobin 96.5 % (95.0-99.0) 02/22/22 12:20 FiO2 35 % 02/22/22 12:20 Sodium 136 mmol/L (137-145) L 02/23/22 04:58 Potassium 4.5 mmol/L (3.6-5.0) 02/23/22 04:58 Chloride 101.4 mmol/L (98-107) 02/23/22 04:58 Carbon Dioxide 27 mmol/L (22-30) 02/23/22 04:58 Anion Gap 12 mmol/L 02/23/22 04:58 BUN 21 mg/dL (9-20) H 02/23/22 04:58 Creatinine 0.3 mg/dL (0.8-1.3) L 02/23/22 04:58 Estimated GFR > 60 ml/min 02/23/22 04:58 BUN/Creatinine Ratio 70 % 02/23/22 04:58 Glucose 104 mg/dL (75-100) H 02/23/22 04:58 POC Glucose 108 mg/dL (70-105) H 02/23/22 12:23 Lactic Acid 2.10 mmol/L (0.7-2.0) H* 02/20/22 14:34 Calcium 8.7 mg/dL (8.4-10.2) 02/23/22 04:58 Magnesium TNR 02/20/22 14:34 Ferritin 806.9 ng/mL (30.0-300.0) H 02/23/22 04:58 Total Bilirubin 0.30 mg/dL (0.1-1.2) 02/23/22 04:58 AST 9 units/L (5-40) 02/23/22 04:58 ALT 7 units/L (7-56) 02/23/22 04:58 Alkaline Phosphatase 76 units/L (35-129) 02/23/22 04:58 Lactate Dehydrogenase 170 units/L (91-180) 02/23/22 04:58 Total Creatine Kinase TNR 02/20/22 14:34 CK-MB (CK-2) TNR 02/20/22 14:34 CK-MB (CK-2) Rel Index TNR 02/20/22 14:34 Troponin T TNR 02/20/22 14:34 C-Reactive Protein 1.20 mg/dL (0.00-1.30) 02/23/22 04:58 NT-Pro-B Natriuret Pep 146.4 pg/mL (0-900) 02/20/22 13:39 Total Protein 5.8 g/dL (6.3-8.2) L 02/23/22 04:58 Albumin 2.8 g/dL (3.9-5) L 02/23/22 04:58 Albumin/Globulin Ratio 0.9 % 02/23/22 04:58 Triglycerides 140 mg/dL (2-149) 02/20/22 13:39 Cholesterol 154 mg/dL (50-199) 02/20/22 13:39 LDL Cholesterol Direct 90 mg/dL (50-130) 02/20/22 13:39 HDL Cholesterol 34 mg/dL (40-59) L 02/20/22 13:39 Cholesterol/HDL Ratio 4.52 % 02/20/22 13:39 Lipase TNR 02/20/22 14:34 Urine Color Yellow (Yellow) 02/20/22 18:53 Urine Turbidity Cloudy (Clear) 02/20/22 18:53 Specific [place] (Man) 1.020 (1.003-1.030) 02/20/22 18:53 Ur Protein (Man) 1+ mg/dL (Negative) 02/20/22 18:53 Ur Ketones (Man) Negative (Negative) 02/20/22 18:53 Ur Nitrite (Man) Negative (Negative) 02/20/22 18:53 Ur Reducing Substances Not Reportable 02/20/22 18:53 Urine Bilirubin (Man) Negative (Negative) 02/20/22 18:53 Leukocyte Esterase (Man) Negative (Negative) 02/20/22 18:53 Urine WBC (Auto) 3.0 /HPF (0.0-6.0) 02/20/22 18:53 Urine RBC (Auto) 1.0 /HPF (0.0-6.0) 02/20/22 18:53 Urine RBC (Manual) Negative (Negative) 02/20/22 18:53 Urine Mucus 1+ /HPF 02/20/22 18:53 Nasal Screen MRSA (PCR) Negative (Negative) 02/22/22 Unknown Urine Opiates Screen Negative 02/20/22 18:53 Urine Methadone Screen Negative 02/20/22 18:53 Ur Barbiturates Screen Negative 02/20/22 18:53 Ur Phencyclidine Scrn Negative 02/20/22 18:53 Ur Amphetamines Screen Negative 02/20/22 18:53 U Benzodiazepines Scrn Negative 02/20/22 18:53 Urine Cocaine Screen Negative 02/20/22 18:53 U Marijuana (THC) Screen Negative 02/20/22 18:53 Drugs of Abuse Note Disclamer 02/20/22 18:53 Coronavirus (PCR) Positive (Negative) A 02/21/22 11:30 Microbiology: Microbiology 02/20/22 13:39 Peripheral/Venous Blood Culture - Preliminary NO GROWTH AFTER 72 HOURS 02/20/22 13:39 Peripheral/Venous Blood Culture - Preliminary NO GROWTH AFTER 72 HOURS Linder/IV: Voiding Method Urinal Active Medications - Current Medications Current Medications: Generic Name Dose Route Start Last Admin Trade Name Freq PRN Reason Stop Dose Admin Acetaminophen 650 mg 02/20/22 17:46 Acetaminophen 325 Mg Tab PO Q4H PRN Pain MILD(1-3)/Fever >100.5/SALEEM Albuterol 2.5 mg 02/21/22 12:00 Albuterol 2.5 Mg/3 Ml Nebu IH Q4HRT PRN Shortness Of Breath Arformoterol Tartrate 15 mcg 02/21/22 20:00 02/23/22 11:53 Arformoterol 15 Mcg/2 Ml Nebu IH Not Given Q12HRT LIONEL Budesonide 0.5 mg 02/21/22 20:00 02/23/22 11:53 Budesonide 0.5 Mg/2 Ml Nebu IH Not Given Q12HRT LIONEL Famotidine 20 mg 02/20/22 22:00 02/23/22 09:51 Famotidine 20 Mg Tab PO 20 mg BID LIONEL Administration Heparin Sodium (Porcine) 5,000 unit 02/20/22 22:00 02/23/22 09:51 Heparin 5,000 Unit/1 Ml Vial SUB-Q 5,000 unit Q12HR LIONEL Administration Remdesivir 100 mg/ Sodium 250 mls @ 500 mls/hr 02/22/22 14:00 02/23/22 14:58 Chloride IV 02/25/22 14:29 500 mls/hr Q24HR@1400 LIONEL Administration Lorazepam 0.5 mg 02/23/22 12:53 Lorazepam 2 Mg/Ml Vial IV Q4H PRN Anxiety Methylprednisolone Sodium Succinate 60 mg 02/22/22 00:00 02/23/22 12:22 Methylprednisolone Sod Succinate 125 Mg/2 Ml Inj IV 60 mg Q6HR LIONEL Administration Metoclopramide HCl 10 mg 02/20/22 17:46 Metoclopramide 10 Mg/2 Ml Inj IV Q6H PRN Nausea And Vomiting Ondansetron HCl 4 mg 02/20/22 17:46 Ondansetron 4 Mg/2 Ml Inj IV Q8H PRN Nausea And Vomiting Oxycodone/Acetaminophen 1 tab 02/20/22 17:46 Oxycodone /Acetaminophen 5-325mg Tab PO Q6H PRN Pain, Moderate (4-6) Sodium Chloride 10 ml 02/20/22 22:00 02/23/22 09:51 Sodium Chloride 0.9% 10 Ml Flush Syringe IV 10 ml BID LIONEL Administration Sodium Chloride 10 ml 02/20/22 17:46 Sodium Chloride 0.9% 10 Ml Flush Syringe IV PRN PRN LINE FLUSH Sodium Chloride 50 ml 02/22/22 22:30 02/23/22 14:58 Sodium Chloride 0.9% 50 Ml Ivpb IV 02/26/22 14:01 50 ml Q24HR@1400 LIONEL Administration Nutrition/Malnutrition Assess - Dietary Evaluation Nutrition/Malnutrition Findings: Nutrition Notes Start: 02/21/22 14:17 Freq: Status: Active Protocol: Document 02/21/22 14:18 ALLA (Rec: 02/21/22 14:27 [email or web address] [id number]) Nutrition Notes Need for Assessment generated from: MD Order Initial or Follow up Assessment Current Diagnosis COPD,Hypertension,Respiratory Failure Other Pertinent Diagnosis RLL pneu, COPD exacerbation, r /o COVID-19 Current Diet Regular + Ensure Enlive (per MD order) Labs/Tests Reviewed Pertinent Medications Solumedrol Height 5 ft 5 in Weight 35.6 kg [place] Body Weight (kg) 61.81 BMI 13.0 Weight Status Underweight Subjective/Other Information RD consulted for poor oral intake; pt also screened for low BMI. Pt admitted with c/o increasing SOB for last 2-3 days. Pt on BiPap support. 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 No Is Patient Ambulatory and/or Out of Bed Yes REE-([facility]-ambulatory/OOB) [ 1407.744 [id number]] Kcal/Kg value to use for calculation 50 Approximate Energy Requirements Using 1780 kcal/Kg Calculation Used for Recommendations Kcal/kg Additional Notes Pro needs 1.2-1.5g/k-53g/ day Fluid needs 1ml/kcal Nutrition Intervention Change Diet Order: Continue current diet order Add Supplement/Snack (indicate name/kcal Ensure High Protein TID ( /protein ) Ensure Enlive not in stock until February 2022) Provides kCal: 480 Provides Protein (gm) 48 Goal #1 PO intake of meals plus ONS to meet 100% of energy and pro needs Goal #2 Wt maintenance and/or gain Anticipated Discharge Needs: Continue ONS 2-3 times daily for wt maintenance Follow-Up By: 02/24/22 Additional Comments F/U: intakes (meals/ONS), COVID-19 test results
[2022-02-24] MEDS: ACETAMINOPHEN 325 MG TAB PO PRN (00:03)
[2022-02-24] MEDS: methylPREDNISolone Sod Succinate 125 MG/2 ML INJ IV SCH ×4 (00:03→18:43)
[2022-02-24] MEDS: HEPARIN 5,000 UNIT/1 ML VIAL SUB-Q SCH ×3 (00:05→21:45)
[2022-02-24] MEDS: FAMOTIDINE 20 MG TAB PO SCH ×3 (00:08→21:45)
[2022-02-24] MEDS: LORazepam 2 MG/ML VIAL IV PRN ×2 (03:02→20:20)
[2022-02-24 05:46] LABS: Alanine Aminotransferase 8 units/L (7-56); Albumin 2.7 g/dL (3.9-5); Blood Urea Nitrogen 22 mg/dL (9-20); Calcium 8.7 mg/dL (8.4-10.2); Hemolysis Index 55
[2022-02-24 06:03] LABS: BUN/Creatinine Ratio 110
[2022-02-24] MEDS: BUDESONIDE 0.5 MG/2 ML NEBU IH SCH ×3 (07:12→20:20)
[2022-02-24] MEDS: ARFORMOTEROL 15 MCG/2 ML NEBU IH SCH ×3 (07:12→20:20)
--- NOTE | 2022-02-24 11:07 | Progress Note ---
Assessment and Plan Cultures: Blood culture no growth COVID-19 PCR positive. A/P: 61-year-old man past medical history COPD, nicotine abuse now with: #Severe COVID-19 pneumonia, acute hypoxemic respiratory failure: Likely secondary to COVID-19 infection. Requiring BiPAP/HFNC. #COPD #Leukopenia: Secondary to COVID-19 Recommendations: -Continue steroids for 10 days, on Solu-Medrol -Continue Remdesivir for 5 days -CRP downtrending, did not meet criteria for Actemra Priyanka Schultz MD, FACP, [facility] ([facility] O: [phone] F: [phone] C: [phone] Subjective Date of service: 02/24/22 Interval history: Afebrile. Remains on HFNC. Asking for anxiety/sleep medicine. Objective - Exam Narrative Exam: Physical Exam: Constitutional: Alert, cooperative. No acute distress Head, Ears, Nose: Normocephalic, atraumatic. External ears, nose normal Eyes: Conjunctivae/corneas clear. No icterus. No ptosis. Neck: Supple, no meningeal signs Cardiovascular: S1, S2 + Respiratory: Good air entry, clear to auscultation bilaterally GI: Soft, non-tender; bowel sounds normal. No peritoneal signs Musculoskeletal: No pedal edema, no cyanosis. Skin: No rash or abscess Hem/Lymphatic: No palpable cervical or supraclavicular nodes. No lymphangitis Psych: Mood ok. Affect normal Neurological: Awake, alert, oriented. No gross abnormality - Constitutional Vitals: Vital Signs Temp Pulse Resp BP Pulse Ox 97.4 F L 95 H 34 H 114/67 99 02/24/22 07:20 02/24/22 09:50 02/24/22 09:50 02/24/22 08:00 02/24/22 08:00 Temperature -Last 24 Hours Temperature 97.4 F Temperature 96.8 F Temperature 96.1 F Temperature 98.2 F Temperature 97.8 F Temperature 97.6 F - Labs CBC & Chem 7: 02/23/22 04:58 02/24/22 04:30 Labs: Abnormal lab results 02/23/22 02/23/22 02/24/22 Range/Units 12:23 18:32 04:30 BUN 22 H (9-20) mg/dL Creatinine 0.2 L (0.8-1.3) mg/dL POC Glucose 108 H 163 H (70-105) mg/dL Total Protein 5.9 L (6.3-8.2) g/dL Albumin 2.7 L (3.9-5) g/dL
--- NOTE | 2022-02-24 11:32 | Progress Note ---
Assessment and Plan 61 y/o male with acute respiratory failure from COPD exacerbation secondary to COVID 02/24/22: No further bradycardia, actually tachy. Remains calm and RT is weaning HFNC. Continue Remdesivir and steroids. NIV at night and PRN. Prognos is remains guarded but improving. Today is his 62 birthday 02/23/22: Had some bradycardia this am. Concern for precedex induced vs remdesivir or a combination of both. Will stop precedex and put on PRN ativan. Did will with 0.5 yesterday so will do 0.6 IV q4. Bipap PRN and QHS. Tolerating HFNC right now. 1. high dose steroids 2. Bipap PRN and QHS 3. Remdesivir 4. CRP to low for Actemra 5. Negative fluid balance daily 6. Guarded prognosis, did well with ativan PRN so will initiate precedex therapy to help prevent intubation. Long discussion with outside of room and how the mortality would increase if placed on ventilator. Expressed understanding and they will discuss more. Subjective Date of service: 02/24/22 Interval history: Wore NIV last night, back on HFNC now at 30/40, same from yesterday. Objective Vital Signs - 12hr 02/23/22 02/23/22 02/23/22 23:40 23:42 23:44 Temperature Pulse Rate 53 L 77 Pulse Rate [ Bilateral] Pulse Rate [ From Monitor] Respiratory 18 Rate Respiratory Rate [Bilateral ] Blood Pressure 101/61 O2 Sat by Pulse 100 100 Oximetry 02/24/22 02/24/22 02/24/22 00:00 00:03 01:00 Temperature 96.1 F L Pulse Rate 56 L 52 L Pulse Rate [ Bilateral] Pulse Rate [ From Monitor] Respiratory 16 25 H 17 Rate Respiratory Rate [Bilateral ] Blood Pressure 118/61 89/60 O2 Sat by Pulse 100 99 Oximetry 02/24/22 02/24/22 02/24/22 01:03 02:00 03:00 Temperature 96.8 F L Pulse Rate 55 L 56 L Pulse Rate [ Bilateral] Pulse Rate [ From Monitor] Respiratory 16 21 20 Rate Respiratory Rate [Bilateral ] Blood Pressure 102/66 102/67 O2 Sat by Pulse 98 100 Oximetry 02/24/22 02/24/22 02/24/22 03:30 03:38 04:00 Temperature Pulse Rate 68 55 L 67 Pulse Rate [ Bilateral] Pulse Rate [ 67 From Monitor] Respiratory 20 21 Rate Respiratory Rate [Bilateral ] Blood Pressure 102/67 92/62 O2 Sat by Pulse 100 99 Oximetry 02/24/22 02/24/22 02/24/22 05:00 06:00 07:00 Temperature Pulse Rate 59 L 56 L 62 Pulse Rate [ Bilateral] Pulse Rate [ From Monitor] Respiratory 21 21 25 H Rate Respiratory Rate [Bilateral ] Blood Pressure 98/60 105/60 114/67 O2 Sat by Pulse 96 97 99 Oximetry 02/24/22 02/24/22 02/24/22 07:20 08:00 09:00 Temperature 97.4 F L Pulse Rate 94 H 113 H Pulse Rate [ Bilateral] Pulse Rate [ 74 From Monitor] Respiratory 35 H 29 H Rate Respiratory Rate [Bilateral ] Blood Pressure 119/63 121/67 O2 Sat by Pulse 96 92 Oximetry 02/24/22 02/24/22 02/24/22 09:50 10:00 11:00 Temperature 97.6 F Pulse Rate 98 H 102 H Pulse Rate [ 95 H Bilateral] Pulse Rate [ From Monitor] Respiratory 32 H 37 H Rate Respiratory 34 H Rate [Bilateral ] Blood Pressure 112/63 112/63 O2 Sat by Pulse 96 93 Oximetry Constitutional: appears uncomfortable, other (appears older than stated age) Eyes: non-icteric ENT: other (full face mask bipap on at present) Neck: supple Effort: very labored Ascultation: Bilateral: diminished breath sounds CBC and BMP: 02/23/22 04:58 02/24/22 04:30 ABG, PT/INR, D-dimer: ABG ABG pH 7.405 pH Units (7.350-7.450) 02/22/22 12:20 ABG pCO2 43.5 mm Hg 02/22/22 12:20 ABG pO2 116.2 mm Hg (80.0-90.0) H 02/22/22 12:20 ABG O2 Saturation 98.2 % (95.0-99.0) 02/22/22 12:20 PT/INR, D-dimer PT 15.4 Sec. (12.2-14.9) H 02/20/22 13:33 INR 1.07 (0.87-1.13) 02/20/22 13:33 D-Dimer 262.94 ng/mlDDU (0-234) H 02/23/22 04:58 Abnormal lab findings: Abnormal Labs 02/20/22 02/20/22 02/20/22 13:33 13:33 13:33 WBC RBC Hgb Hct MCH 34 H MCHC 39 H* RDW 16.8 H Lymph % (Auto) Lymph # (Auto) Seg Neutrophils % PT 15.4 H D-Dimer ABG pO2 ABG HCO3 ABG O2 Saturation ABG Hemoglobin Sodium BUN Creatinine Glucose POC Glucose Lactic Acid 3.70 H* Magnesium Ferritin ALT Total Creatine Kinase CK-MB (CK-2) CK-MB (CK-2) Rel Index Troponin T C-Reactive Protein Total Protein Albumin HDL Cholesterol Coronavirus (PCR) 02/20/22 02/20/22 02/20/22 13:39 13:39 13:39 WBC RBC Hgb Hct MCH MCHC RDW Lymph % (Auto) Lymph # (Auto) Seg Neutrophils % PT D-Dimer ABG pO2 ABG HCO3 ABG O2 Saturation ABG Hemoglobin Sodium BUN Creatinine 0.3 L Glucose 139 H POC Glucose Lactic Acid Magnesium 2.60 H Ferritin ALT 5 L Total Creatine Kinase 54 L CK-MB (CK-2) 6.4 H CK-MB (CK-2) Rel Index 11.8 H Troponin T 0.141 H* C-Reactive Protein Total Protein Albumin 3.4 L HDL Cholesterol 34 L Coronavirus (PCR) 02/20/22 02/20/22 02/21/22 14:34 16:08 05:28 WBC 3.2 L RBC Hgb 11.4 L Hct 32.3 L MCH MCHC 35 H RDW 16.4 H Lymph % (Auto) Lymph # (Auto) 0.6 L Seg Neutrophils % 73.5 H PT D-Dimer ABG pO2 195.7 H ABG HCO3 ABG O2 Saturation 99.2 H ABG Hemoglobin 12.7 L Sodium BUN Creatinine Glucose POC Glucose Lactic Acid 2.10 H* Magnesium Ferritin ALT Total Creatine Kinase CK-MB (CK-2) CK-MB (CK-2) Rel Index Troponin T C-Reactive Protein Total Protein Albumin HDL Cholesterol Coronavirus (PCR) 02/21/22 02/21/22 02/21/22 05:28 09:20 09:20 WBC RBC Hgb Hct MCH MCHC RDW Lymph % (Auto) Lymph # (Auto) Seg Neutrophils % PT D-Dimer 335.95 H ABG pO2 ABG HCO3 ABG O2 Saturation ABG Hemoglobin Sodium 136 L BUN Creatinine 0.2 L Glucose 141 H POC Glucose Lactic Acid Magnesium Ferritin 1666.0 H ALT < 5 L Total Creatine Kinase CK-MB (CK-2) CK-MB (CK-2) Rel Index Troponin T C-Reactive Protein Total Protein Albumin 3.0 L HDL Cholesterol Coronavirus (PCR) 02/21/22 02/21/22 02/22/22 09:20 11:30 04:41 WBC RBC 3.11 L Hgb 10.3 L Hct 27.9 L MCH 33 H MCHC 37 H RDW 17.1 H Lymph % (Auto) 12.1 L Lymph # (Auto) 0.7 L Seg Neutrophils % 80.9 H PT D-Dimer ABG pO2 ABG HCO3 ABG O2 Saturation ABG Hemoglobin Sodium BUN Creatinine Glucose POC Glucose Lactic Acid Magnesium Ferritin ALT Total Creatine Kinase CK-MB (CK-2) CK-MB (CK-2) Rel Index Troponin T C-Reactive Protein 6.70 H Total Protein Albumin HDL Cholesterol Coronavirus (PCR) Positive A 02/22/22 02/22/22 02/22/22 04:41 04:41 12:20 WBC RBC Hgb Hct MCH MCHC RDW Lymph % (Auto) Lymph # (Auto) Seg Neutrophils % PT D-Dimer ABG pO2 116.2 H ABG HCO3 26.6 H ABG O2 Saturation ABG Hemoglobin 11.9 L Sodium BUN Creatinine 0.3 L Glucose 116 H POC Glucose Lactic Acid Magnesium Ferritin 1116.0 H ALT Total Creatine Kinase CK-MB (CK-2) CK-MB (CK-2) Rel Index Troponin T C-Reactive Protein 2.70 H Total Protein Albumin HDL Cholesterol Coronavirus (PCR) 02/23/22 02/23/22 02/23/22 04:58 04:58 04:58 WBC RBC Hgb Hct MCH MCHC RDW Lymph % (Auto) Lymph # (Auto) Seg Neutrophils % PT D-Dimer 262.94 H ABG pO2 ABG HCO3 ABG O2 Saturation ABG Hemoglobin Sodium 136 L BUN 21 H Creatinine 0.3 L Glucose 104 H POC Glucose Lactic Acid Magnesium Ferritin 806.9 H ALT Total Creatine Kinase CK-MB (CK-2) CK-MB (CK-2) Rel Index Troponin T C-Reactive Protein Total Protein 5.8 L Albumin 2.8 L HDL Cholesterol Coronavirus (PCR) 02/23/22 02/23/22 02/23/22 04:58 12:23 18:32 WBC 4.3 L RBC 3.40 L Hgb 10.3 L Hct 28.7 L MCH MCHC 36 H RDW 16.9 H Lymph % (Auto) Lymph # (Auto) Seg Neutrophils % PT D-Dimer ABG pO2 ABG HCO3 ABG O2 Saturation ABG Hemoglobin Sodium BUN Creatinine Glucose POC Glucose 108 H 163 H Lactic Acid Magnesium Ferritin ALT Total Creatine Kinase CK-MB (CK-2) CK-MB (CK-2) Rel Index Troponin T C-Reactive Protein Total Protein Albumin HDL Cholesterol Coronavirus (PCR) 02/24/22 04:30 WBC RBC Hgb Hct MCH MCHC RDW Lymph % (Auto) Lymph # (Auto) Seg Neutrophils % PT D-Dimer ABG pO2 ABG HCO3 ABG O2 Saturation ABG Hemoglobin Sodium BUN 22 H Creatinine 0.2 L Glucose POC Glucose Lactic Acid Magnesium Ferritin ALT Total Creatine Kinase CK-MB (CK-2) CK-MB (CK-2) Rel Index Troponin T C-Reactive Protein Total Protein 5.9 L Albumin 2.7 L HDL Cholesterol Coronavirus (PCR)
--- NOTE | 2022-02-24 12:24 | Progress Note ---
Assessment and Plan Assessment and plan: History Interval history: This is a 61-year-old male with current nicotine abuse, HTN and COPD who presented to emergency department on 02/20 with shortness of breath over the past 2 to 3 days, cough with sputum production and increasing shortness of breath not responding to inhalers or nebulizer treatments. In the emergency department patient was tachycardic and tachypneic and SPO2 was in the 70s on room air. Patient was given albuterol, magnesium, Solu-Medrol by EMS on arrival. Recommend the emergency department. CXR wet read with right lower lobe pneum onia. Patient was admitted to the hospitalist service with acute hypoxic respiratory failure, right lower lobe pneumonia and COPD exacerbation with consult to pulmonology. Hospital course to date: 02/21: No acute events overnight, COVID-19 PCR positive, infectious disease consulted started on remdesivir 02/22: Patient transferred to [facility], currently on CPAP with increased work of breathing. Given 1 dose of Ativan which helped work of breathing and heart rate decreased. 02/23: Patient was on continuous BiPAP all night, this morning patient weaned to high flow nasal cannula with RT. Noted bradycardia overnight and patient is on remdesivir therefore Precedex will be stopped and as needed Ativan will be ordered. Patient states that he feels much better and instructed to self prone as tolerated. 02/24: Improved respirations. Vitals improved, no longer bradycardic as patient off of precedex. prn ativan for anxiety however counseled on how to deal with "panic attacks". Currently on HiFlo NC, RT will attempt to de-escalate to [place] NC. continue with bipap qhs/prn. Continued therapy for covid 19 viral infection with solumedrol and remdesivir. Pulmonary and ID recommendations reviewed. Continue [facility] level of care at this time, prognosis remains guarded. Assessment and plan: This is a 61-year-old male with current nicotine abuse, HTN and COPD admitted with COPD exacerbation secondary to COVID-19 infection Neuro: Generalized anxiety disorder -As needed Ativan IV -S/p Precedex drip, now d/c -Reorientation as needed -Maintain sleep-wake cycle -As needed analgesia Cardiac: SB, h/o hypertension -Cardiology consulted, appreciate recommendations -Blood pressure monitoring per protocol -Hold home antihypertension regimen Respiratory: Acute hypoxemic respiratory failure, COPD exacerbation, h/o COPD, current nicotine abuse -Pulmonology consulted, appreciate recommendations -s/p Ventimask -BiPAP as needed -Wean to hyponasal cannula -SPO2 monitor per protocol -Supplemental oxygen as needed -Pulmonary hygiene -Albuterol, Pulmicort, Brovana GI: Moderate protein calorie malnutrition -24 hours -215 ml -Regular diet -Nutrition supplementation : NAD -Monitor intake and output -Renally dose medications -Avoid nephrotoxic medications -Trend BMP ID: COVID 19 infection -Infectious disease consulted, appreciate recommendation -COVID-19 PCR positive -Solu-Medrol 60 mg every 6 hours -Antibiotic discontinued -Remdesivir for 5 days (02/21-02/26) -Contact/droplet precautions -f/u blood culture -Monitor WBC and temperature curve -Trend COVID-19 inflammatory markers -Anticoagulation per protocol Endo: NAD -Avoid hypoglycemia Heme: Leukopenia (resolved) -Trend CBC -Transfuse hemoglobin less than 7 -SCDs to BLE while in bed The high probability of a clinically significant, sudden or life threatening deterioration of the [pulm/ID] system(s) required my full and direct attention, intervention and personal management. The aggregate critical care time was [60] minutes. This time is in addition to time spent performing reported procedures but includes the following: [x] Data Review and interpretation [x] Patient assessment and monitoring of vital signs [x] Documentation [x] Medication orders and management Disposition Plan: imcu Total Time Spent with Patient (Minutes): 60 History Interval history: resting and breathing comfortably this AM. Wished patient happy birthday as he is now 62 years old. Was on HFNC at the time of encounter 30l/min /40% fio2. Counseled on how to deal with panic attacks. Patient was not in any distress when seen. D/w RT who will attempt to de-escalate O2 further as patient was satting 99%. Hospitalist Physical - Physical exam Narrative exam: General appearance: Present: mild distress, cachectic - EENT Eyes: Present: PERRL, EOM intact ENT: clear oral mucosa, dentition normal - Neck Neck: Present: normal ROM - Respiratory Respiratory effort: normal Respiratory: bilateral: diminished - Cardiovascular Rhythm: regular Heart Sounds: Present: S1 & S2. Absent: systolic murmur, diastolic murmur - Extremities Extremities: no ischemia, pulses intact, pulses symmetrical, No edema, normal temperature, normal color, Full ROM Peripheral Pulses: within normal limits - Abdominal General gastrointestinal: soft, non-tender, non-distended, normal bowel sounds - Integumentary Integumentary: Present: warm, dry - Psychiatric Psychiatric: cooperative - Neurologic Neurologic: CNII-XII intact, no focal deficits, moves all extremities - Allied Health Allied health notes reviewed: nursing, RT - Constitutional Vitals: Temp Pulse Resp BP Pulse Ox 97.2 F L 102 H 37 H 112/63 93 02/24/22 11:51 02/24/22 11:00 02/24/22 11:00 02/24/22 11:00 02/24/22 11:00 General appearance: Present: mild distress, cachectic HEART Score - HEART Score Troponin: Troponin T TNR 02/20/22 14:34 Results - Labs CBC & Chem 7: 02/23/22 04:58 02/24/22 04:30 Labs: Laboratory Last Values WBC 4.3 K/mm3 (4.5-11.0) L 02/23/22 04:58 RBC 3.40 M/mm3 (3.65-5.03) L 02/23/22 04:58 Hgb 10.3 gm/dl (11.8-15.2) L 02/23/22 04:58 Hct 28.7 % (35.5-45.6) L 02/23/22 04:58 MCV 84 fl (84-94) 02/23/22 04:58 MCH 30 pg (28-32) 02/23/22 04:58 MCHC 36 % (32-34) H 02/23/22 04:58 RDW 16.9 % (13.2-15.2) H 02/23/22 04:58 Plt Count 418 K/mm3 (140-440) 02/23/22 04:58 Lymph % (Auto) 12.1 % (13.4-35.0) L 02/22/22 04:41 [place] % (Auto) 7.0 % (0.0-7.3) 02/22/22 04:41 Eos % (Auto) 0.0 % (0.0-4.3) 02/22/22 04:41 Baso % (Auto) 0.0 % (0.0-1.8) 02/22/22 04:41 Lymph # (Auto) 0.7 K/mm3 (1.2-5.4) L 02/22/22 04:41 [place] # (Auto) 0.4 K/mm3 (0.0-0.8) 02/22/22 04:41 Eos # (Auto) 0.0 K/mm3 (0.0-0.4) 02/22/22 04:41 Baso # (Auto) 0.0 K/mm3 (0.0-0.1) 02/22/22 04:41 Seg Neutrophils % 80.9 % (40.0-70.0) H 02/22/22 04:41 Seg Neutrophils # 4.9 K/mm3 (1.8-7.7) 02/22/22 04:41 PT 15.4 Sec. (12.2-14.9) H 02/20/22 13:33 INR 1.07 (0.87-1.13) 02/20/22 13:33 D-Dimer 262.94 ng/mlDDU (0-234) H 02/23/22 04:58 ABG pH 7.405 pH Units (7.350-7.450) 02/22/22 12:20 ABG pCO2 43.5 mm Hg 02/22/22 12:20 ABG pO2 116.2 mm Hg (80.0-90.0) H 02/22/22 12:20 ABG HCO3 26.6 mmol/L (20.0-26.0) H 02/22/22 12:20 ABG O2 Saturation 98.2 % (95.0-99.0) 02/22/22 12:20 ABG O2 Content 16.3 (0.0-44) 02/22/22 12:20 ABG Base Excess 1.6 mmol/L (-2.0-3.0) 02/22/22 12:20 ABG Hemoglobin 11.9 gm/dl (14.0-18.0) L 02/22/22 12:20 ABG Carboxyhemoglobin 1.1 % (0.0-5.0) 02/22/22 12:20 ABG Methemoglobin 0.6 % (0.0-1.5) 02/22/22 12:20 Oxyhemoglobin 96.5 % (95.0-99.0) 02/22/22 12:20 FiO2 35 % 02/22/22 12:20 Sodium 138 mmol/L (137-145) 02/24/22 04:30 Potassium 4.4 mmol/L (3.6-5.0) 02/24/22 04:30 Chloride 101.7 mmol/L (98-107) 02/24/22 04:30 Carbon Dioxide 27 mmol/L (22-30) 02/24/22 04:30 Anion Gap 14 mmol/L 02/24/22 04:30 BUN 22 mg/dL (9-20) H 02/24/22 04:30 Creatinine 0.2 mg/dL (0.8-1.3) L 02/24/22 04:30 Estimated GFR > 60 ml/min 02/24/22 04:30 BUN/Creatinine Ratio 110 % 02/24/22 04:30 Glucose 100 mg/dL (75-100) 02/24/22 04:30 POC Glucose 163 mg/dL (70-105) H 02/23/22 18:32 Lactic Acid 2.10 mmol/L (0.7-2.0) H* 02/20/22 14:34 Calcium 8.7 mg/dL (8.4-10.2) 02/24/22 04:30 Magnesium TNR 02/20/22 14:34 Ferritin 806.9 ng/mL (30.0-300.0) H 02/23/22 04:58 Total Bilirubin 0.40 mg/dL (0.1-1.2) 02/24/22 04:30 AST 12 units/L (5-40) 02/24/22 04:30 ALT 8 units/L (7-56) 02/24/22 04:30 Alkaline Phosphatase 75 units/L (35-129) 02/24/22 04:30 Lactate Dehydrogenase 170 units/L (91-180) 02/23/22 04:58 Total Creatine Kinase TNR 02/20/22 14:34 CK-MB (CK-2) TNR 02/20/22 14:34 CK-MB (CK-2) Rel Index TNR 02/20/22 14:34 Troponin T TNR 02/20/22 14:34 C-Reactive Protein 1.20 mg/dL (0.00-1.30) 02/23/22 04:58 NT-Pro-B Natriuret Pep 146.4 pg/mL (0-900) 02/20/22 13:39 Total Protein 5.9 g/dL (6.3-8.2) L 02/24/22 04:30 Albumin 2.7 g/dL (3.9-5) L 02/24/22 04:30 Albumin/Globulin Ratio 0.8 % 02/24/22 04:30 Triglycerides 140 mg/dL (2-149) 02/20/22 13:39 Cholesterol 154 mg/dL (50-199) 02/20/22 13:39 LDL Cholesterol Direct 90 mg/dL (50-130) 02/20/22 13:39 HDL Cholesterol 34 mg/dL (40-59) L 02/20/22 13:39 Cholesterol/HDL Ratio 4.52 % 02/20/22 13:39 Lipase TNR 02/20/22 14:34 Urine Color Yellow (Yellow) 02/20/22 18:53 Urine Turbidity Cloudy (Clear) 02/20/22 18:53 Specific [place] (Man) 1.020 (1.003-1.030) 02/20/22 18:53 Ur Protein (Man) 1+ mg/dL (Negative) 02/20/22 18:53 Ur Ketones (Man) Negative (Negative) 02/20/22 18:53 Ur Nitrite (Man) Negative (Negative) 02/20/22 18:53 Ur Reducing Substances Not Reportable 02/20/22 18:53 Urine Bilirubin (Man) Negative (Negative) 02/20/22 18:53 Leukocyte Esterase (Man) Negative (Negative) 02/20/22 18:53 Urine WBC (Auto) 3.0 /HPF (0.0-6.0) 02/20/22 18:53 Urine RBC (Auto) 1.0 /HPF (0.0-6.0) 02/20/22 18:53 Urine RBC (Manual) Negative (Negative) 02/20/22 18:53 Urine Mucus 1+ /HPF 02/20/22 18:53 Nasal Screen MRSA (PCR) Negative (Negative) 02/22/22 Unknown Urine Opiates Screen Negative 02/20/22 18:53 Urine Methadone Screen Negative 02/20/22 18:53 Ur Barbiturates Screen Negative 02/20/22 18:53 Ur Phencyclidine Scrn Negative 02/20/22 18:53 Ur Amphetamines Screen Negative 02/20/22 18:53 U Benzodiazepines Scrn Negative 02/20/22 18:53 Urine Cocaine Screen Negative 02/20/22 18:53 U Marijuana (THC) Screen Negative 02/20/22 18:53 Drugs of Abuse Note Disclamer 02/20/22 18:53 Coronavirus (PCR) Positive (Negative) A 02/21/22 11:30 Microbiology: Microbiology 02/20/22 13:39 Peripheral/Venous Blood Culture - Preliminary NO GROWTH AFTER 72 HOURS 02/20/22 13:39 Peripheral/Venous Blood Culture - Preliminary NO GROWTH AFTER 72 HOURS Linder/IV: Voiding Method Urinal Active Medications - Current Medications Current Medications: Generic Name Dose Route Start Last Admin Trade Name Freq PRN Reason Stop Dose Admin Acetaminophen 650 mg 02/20/22 17:46 02/24/22 00:03 Acetaminophen 325 Mg Tab PO 650 mg Q4H PRN Administration Pain MILD(1-3)/Fever >100.5/SALEEM Albuterol 2.5 mg 02/21/22 12:00 Albuterol 2.5 Mg/3 Ml Nebu IH Q4HRT PRN Shortness Of Breath Arformoterol Tartrate 15 mcg 02/21/22 20:00 02/24/22 09:54 Arformoterol 15 Mcg/2 Ml Nebu IH 15 mcg Q12HRT LIONEL Administration Budesonide 0.5 mg 02/21/22 20:00 02/24/22 09:54 Budesonide 0.5 Mg/2 Ml Nebu IH 0.5 mg Q12HRT LIONEL Administration Famotidine 20 mg 02/20/22 22:00 02/24/22 10:32 Famotidine 20 Mg Tab PO 20 mg BID LIONEL Administration Heparin Sodium (Porcine) 5,000 unit 02/20/22 22:00 02/24/22 10:32 Heparin 5,000 Unit/1 Ml Vial SUB-Q 5,000 unit Q12HR LIONEL Administration Remdesivir 100 mg/ Sodium 250 mls @ 500 mls/hr 02/22/22 14:00 02/23/22 14:58 Chloride IV 02/25/22 14:29 500 mls/hr Q24HR@1400 LIONEL Administration Lorazepam 0.5 mg 02/23/22 12:53 02/24/22 03:02 Lorazepam 2 Mg/Ml Vial IV 0.5 mg Q4H PRN Administration Anxiety Methylprednisolone Sodium Succinate 60 mg 02/22/22 00:00 02/24/22 07:00 Methylprednisolone Sod Succinate 125 Mg/2 Ml Inj IV 60 mg Q6HR LIONEL Administration Metoclopramide HCl 10 mg 02/20/22 17:46 Metoclopramide 10 Mg/2 Ml Inj IV Q6H PRN Nausea And Vomiting Ondansetron HCl 4 mg 02/20/22 17:46 Ondansetron 4 Mg/2 Ml Inj IV Q8H PRN Nausea And Vomiting Oxycodone/Acetaminophen 1 tab 02/20/22 17:46 Oxycodone /Acetaminophen 5-325mg Tab PO Q6H PRN Pain, Moderate (4-6) Sodium Chloride 10 ml 02/20/22 22:00 02/24/22 10:32 Sodium Chloride 0.9% 10 Ml Flush Syringe IV 10 ml BID LIONEL Administration Sodium Chloride 10 ml 02/20/22 17:46 Sodium Chloride 0.9% 10 Ml Flush Syringe IV PRN PRN LINE FLUSH Sodium Chloride 50 ml 02/22/22 22:30 02/23/22 14:58 Sodium Chloride 0.9% 50 Ml Ivpb IV 02/26/22 14:01 50 ml Q24HR@1400 LIONEL Administration Nutrition/Malnutrition Assess - Dietary Evaluation Nutrition/Malnutrition Findings: Nutrition Notes Start: 02/21/22 14:17 Freq: Status: Active Protocol: Document 02/21/22 14:18 ALLA (Rec: 02/21/22 14:27 [facility] [id number]) Nutrition Notes Need for Assessment generated from: MD Order Initial or Follow up Assessment Current Diagnosis COPD,Hypertension,Respiratory Failure Other Pertinent Diagnosis RLL pneu, COPD exacerbation, r /o COVID-19 Current Diet Regular + Ensure Enlive (per MD order) Labs/Tests Reviewed Pertinent Medications Solumedrol Height 5 ft 5 in Weight 35.6 kg [place] Body Weight (kg) 61.81 BMI 13.0 Weight Status Underweight Subjective/Other Information RD consulted for poor oral intake; pt also screened for low BMI. Pt admitted with c/o increasing SOB for last 2-3 days. Pt on BiPap support. Burn Absent Trauma Absent Skin Integrity/Comment No skin breakdown reported Minimum of two criteria Yes Energy Intake (severe) < or equal to 50% Estimated Energy Requirement > or equal to 5 days Reduced Technology Strategist Strength Measurably Reduced (severe) #1 Nutrition Diagnosis Malnutrition Etiology chronic illness As Evidenced by Signs and Symptoms BMI 13.1, decreased PO intake, bilat weak bsa officer strength Is patient on ventilator? No Is Patient Ambulatory and/or Out of Bed Yes REE-([place]-St. Jeor-ambulatory/OOB) [ 1407.744 NUTR.[id number]] Kcal/Kg value to use for calculation 50 Approximate Energy Requirements Using 1780 kcal/Kg Calculation Used for Recommendations Kcal/kg Additional Notes Pro needs 1.2-1.5g/k-53g/ day Fluid needs 1ml/kcal Nutrition Intervention Change Diet Order: Continue current diet order Add Supplement/Snack (indicate name/kcal Ensure High Protein TID ( /protein ) Ensure Enlive not in stock until February 2022) Provides kCal: 480 Provides Protein (gm) 48 Goal #1 PO intake of meals plus ONS to meet 100% of energy and pro needs Goal #2 Wt maintenance and/or gain Anticipated Discharge Needs: Continue ONS 2-3 times daily for wt maintenance Follow-Up By: 02/24/22 Additional Comments F/U: intakes (meals/ONS), COVID-19 test results
[2022-02-24] MEDS: SODIUM CHLORIDE 0.9% 50 ML IVPB IV SCH (14:55)
[2022-02-24] MEDS: REMDESIVIR 100 MG in SODIUM CHLORIDE 0.9% 250ML 250 ML IV SCH (14:55)
[2022-02-24 16:50] LABS: ABG Base Excess 3.7 mmol/L (-2.0-3.0); ABG HCO3 28.3 mmol/L (20.0-26.0); ABG Methemoglobin 0.5 % (0.0-1.5); ABG Oxygen Saturation 94.3 % (95.0-99.0); ABG PCO2 42.6 mm Hg; ABG PH 7.44 pH Units (7.350-7.450); ABG PO2 62.1 mm Hg (80.0-90.0)
[2022-02-25] MEDS: methylPREDNISolone Sod Succinate 125 MG/2 ML INJ IV SCH ×3 (00:40→13:51)
--- NOTE | 2022-02-25 04:53 | XRay Report ---
CHEST 1 VIEW INDICATION / CLINICAL INFORMATION: covid 19 pna. FINDINGS: SUPPORT DEVICES: None. HEART / MEDIASTINUM: The cardiomediastinal silhouette has not significantly changed in the interim. LUNGS / PLEURA: No new findings or change from 02/20/2022. Signer Name: Boone Leonard MD Signed: 02/25/2022 4:48 AM Workstation Name: [email or web address]
[2022-02-25 04:56] LABS: Basophils % (Auto) 0.2 % (0.0-1.8); Eosinophils % (Auto) 0.4 % (0.0-4.3); Hematocrit 34.9 % (35.5-45.6); Hemoglobin 11.7 gm/dl (11.8-15.2); Lymphocytes # (Auto) 0.6 K/mm3 (1.2-5.4); Lymphocytes % (Auto) 7.8 % (13.4-35.0); Mean Corpuscular HGB Conc 34 % (32-34); Mean Corpuscular Volume 78 fl (84-94); Monocytes # (Auto) 0.3 K/mm3 (0.0-0.8); Monocytes % (Auto) 3.8 % (0.0-7.3); Platelet Count 451 K/mm3 (140-440); Red Blood Count 4.45 M/mm3 (3.65-5.03)
[2022-02-25 05:13] LABS: Alanine Aminotransferase 11 units/L (7-56); Albumin 3.1 g/dL (3.9-5); Blood Urea Nitrogen 15 mg/dL (9-20); Calcium 8.5 mg/dL (8.4-10.2); Hemolysis Index 11
[2022-02-25 05:24] LABS: BUN/Creatinine Ratio 50
[2022-02-25] MEDS: ARFORMOTEROL 15 MCG/2 ML NEBU IH SCH ×2 (08:04→21:00)
[2022-02-25] MEDS: BUDESONIDE 0.5 MG/2 ML NEBU IH SCH ×2 (08:04→21:00)
[2022-02-25] MEDS: FAMOTIDINE 20 MG TAB PO SCH ×2 (09:17→22:00)
[2022-02-25] MEDS: HEPARIN 5,000 UNIT/1 ML VIAL SUB-Q SCH ×3 (09:17→22:00)
--- NOTE | 2022-02-25 11:48 | Progress Note ---
Assessment and Plan 61 y/o male with acute respiratory failure from COPD exacerbation secondary to COVID 02/25/22: COntinue to wean FiO2 as tolerated. Most likely will need oxygen at discharge. Continue Remdesivir and steroids. Continue PRN NIV, can change night time to PRN as well. Daily negative fluid balance. Will transfer to floor. (COVID Floor) 02/24/22: No further bradycardia, actually tachy. Remains calm and RT is weaning HFNC. Continue Remdesivir and steroids. NIV at night and PRN. Prognosis remains guarded but improving. Today is his 62 birthday 02/23/22: Had some bradycardia this am. Concern for precedex induced vs remdesivir or a combination of both. Will stop precedex and put on PRN ativan. Did will with 0.5 yesterday so will do 0.6 IV q4. Bipap PRN and QHS. Tolerating HFNC right now. 1. high dose steroids 2. Bipap PRN and QHS 3. Remdesivir 4. CRP to low for Actemra 5. Negative fluid balance daily 6. Guarded prognosis, did well with ativan PRN so will initiate precedex therapy to help prevent intubation. Long discussion with outside of room and how the mortality would increase if placed on ventilator. Expressed understanding and they will discuss more. Subjective Date of service: 02/25/22 Interval history: No acute events. Down to 3 liters NC with good sats. Objective Vital Signs - 12hr 02/25/22 02/25/22 02/25/22 00:00 01:00 02:00 Temperature 96.8 F L Pulse Rate 75 72 65 Pulse Rate [ Bilateral] Pulse Rate [ 80 From Monitor] Respiratory 25 H 28 H 26 H Rate Respiratory Rate [Bilateral ] Blood Pressure 107/77 120/91 120/91 O2 Sat by Pulse 100 100 100 Oximetry 02/25/22 02/25/22 02/25/22 03:00 04:00 05:00 Temperature 98.2 F Pulse Rate 74 58 L 58 L Pulse Rate [ Bilateral] Pulse Rate [ 61 From Monitor] Respiratory 19 22 19 Rate Respiratory Rate [Bilateral ] Blood Pressure 94/62 111/73 132/72 O2 Sat by Pulse 98 97 100 Oximetry 02/25/22 02/25/22 02/25/22 05:30 06:00 07:00 Temperature Pulse Rate 61 59 L 60 Pulse Rate [ Bilateral] Pulse Rate [ From Monitor] Respiratory 18 18 21 Rate Respiratory Rate [Bilateral ] Blood Pressure 109/74 109/74 130/77 O2 Sat by Pulse 100 100 99 Oximetry 02/25/22 02/25/22 02/25/22 07:29 08:00 08:02 Temperature 97.5 F L Pulse Rate 84 Pulse Rate [ Bilateral] Pulse Rate [ 61 From Monitor] Respiratory 29 H Rate Respiratory Rate [Bilateral ] Blood Pressure 130/77 O2 Sat by Pulse 99 96 Oximetry 02/25/22 02/25/22 02/25/22 08:04 09:00 10:00 Temperature Pulse Rate 103 H 83 Pulse Rate [ 87 Bilateral] Pulse Rate [ From Monitor] Respiratory 34 H 28 H Rate Respiratory 28 H Rate [Bilateral ] Blood Pressure 113/80 127/74 O2 Sat by Pulse 98 99 Oximetry Constitutional: appears uncomfortable, other (appears older than stated age) Eyes: non-icteric ENT: other (full face mask bipap on at present) Neck: supple Effort: very labored Ascultation: Bilateral: diminished breath sounds CBC and BMP: 02/25/22 04:34 02/25/22 04:34 ABG, PT/INR, D-dimer: ABG ABG pH 7.440 pH Units (7.350-7.450) 02/24/22 15:00 ABG pCO2 42.6 mm Hg 02/24/22 15:00 ABG pO2 62.1 mm Hg (80.0-90.0) L 02/24/22 15:00 ABG O2 Saturation 94.3 % (95.0-99.0) L 02/24/22 15:00 PT/INR, D-dimer PT 15.4 Sec. (12.2-14.9) H 02/20/22 13:33 INR 1.07 (0.87-1.13) 02/20/22 13:33 D-Dimer 258.52 ng/mlDDU (0-234) H 02/25/22 04:34 Abnormal lab findings: Abnormal Labs 02/20/22 02/20/22 02/20/22 13:33 13:33 13:33 WBC RBC Hgb Hct MCV MCH 34 H MCHC 39 H* RDW 16.8 H Plt Count Lymph % (Auto) Lymph # (Auto) Seg Neutrophils % PT 15.4 H D-Dimer ABG pO2 ABG HCO3 ABG O2 Saturation ABG Base Excess ABG Hemoglobin Oxyhemoglobin Sodium BUN Creatinine Glucose POC Glucose Lactic Acid 3.70 H* Magnesium Ferritin ALT Lactate Dehydrogenase Total Creatine Kinase CK-MB (CK-2) CK-MB (CK-2) Rel Index Troponin T C-Reactive Protein Total Protein Albumin HDL Cholesterol Coronavirus (PCR) 02/20/22 02/20/22 02/20/22 13:39 13:39 13:39 WBC RBC Hgb Hct MCV MCH MCHC RDW Plt Count Lymph % (Auto) Lymph # (Auto) Seg Neutrophils % PT D-Dimer ABG pO2 ABG HCO3 ABG O2 Saturation ABG Base Excess ABG Hemoglobin Oxyhemoglobin Sodium BUN Creatinine 0.3 L Glucose 139 H POC Glucose Lactic Acid Magnesium 2.60 H Ferritin ALT 5 L Lactate Dehydrogenase Total Creatine Kinase 54 L CK-MB (CK-2) 6.4 H CK-MB (CK-2) Rel Index 11.8 H Troponin T 0.141 H* C-Reactive Protein Total Protein Albumin 3.4 L HDL Cholesterol 34 L Coronavirus (PCR) 02/20/22 02/20/22 02/21/22 14:34 16:08 05:28 WBC 3.2 L RBC Hgb 11.4 L Hct 32.3 L MCV MCH MCHC 35 H RDW 16.4 H Plt Count Lymph % (Auto) Lymph # (Auto) 0.6 L Seg Neutrophils % 73.5 H PT D-Dimer ABG pO2 195.7 H ABG HCO3 ABG O2 Saturation 99.2 H ABG Base Excess ABG Hemoglobin 12.7 L Oxyhemoglobin Sodium BUN Creatinine Glucose POC Glucose Lactic Acid 2.10 H* Magnesium Ferritin ALT Lactate Dehydrogenase Total Creatine Kinase CK-MB (CK-2) CK-MB (CK-2) Rel Index Troponin T C-Reactive Protein Total Protein Albumin HDL Cholesterol Coronavirus (PCR) 02/21/22 02/21/22 02/21/22 05:28 09:20 09:20 WBC RBC Hgb Hct MCV MCH MCHC RDW Plt Count Lymph % (Auto) Lymph # (Auto) Seg Neutrophils % PT D-Dimer 335.95 H ABG pO2 ABG HCO3 ABG O2 Saturation ABG Base Excess ABG Hemoglobin Oxyhemoglobin Sodium 136 L BUN Creatinine 0.2 L Glucose 141 H POC Glucose Lactic Acid Magnesium Ferritin 1666.0 H ALT < 5 L Lactate Dehydrogenase Total Creatine Kinase CK-MB (CK-2) CK-MB (CK-2) Rel Index Troponin T C-Reactive Protein Total Protein Albumin 3.0 L HDL Cholesterol Coronavirus (PCR) 02/21/22 02/21/22 02/22/22 09:20 11:30 04:41 WBC RBC 3.11 L Hgb 10.3 L Hct 27.9 L MCV MCH 33 H MCHC 37 H RDW 17.1 H Plt Count Lymph % (Auto) 12.1 L Lymph # (Auto) 0.7 L Seg Neutrophils % 80.9 H PT D-Dimer ABG pO2 ABG HCO3 ABG O2 Saturation ABG Base Excess ABG Hemoglobin Oxyhemoglobin Sodium BUN Creatinine Glucose POC Glucose Lactic Acid Magnesium Ferritin ALT Lactate Dehydrogenase Total Creatine Kinase CK-MB (CK-2) CK-MB (CK-2) Rel Index Troponin T C-Reactive Protein 6.70 H Total Protein Albumin HDL Cholesterol Coronavirus (PCR) Positive A 02/22/22 02/22/22 02/22/22 04:41 04:41 12:20 WBC RBC Hgb Hct MCV MCH MCHC RDW Plt Count Lymph % (Auto) Lymph # (Auto) Seg Neutrophils % PT D-Dimer ABG pO2 116.2 H ABG HCO3 26.6 H ABG O2 Saturation ABG Base Excess ABG Hemoglobin 11.9 L Oxyhemoglobin Sodium BUN Creatinine 0.3 L Glucose 116 H POC Glucose Lactic Acid Magnesium Ferritin 1116.0 H ALT Lactate Dehydrogenase Total Creatine Kinase CK-MB (CK-2) CK-MB (CK-2) Rel Index Troponin T C-Reactive Protein 2.70 H Total Protein Albumin HDL Cholesterol Coronavirus (PCR) 02/23/22 02/23/22 02/23/22 04:58 04:58 04:58 WBC RBC Hgb Hct MCV MCH MCHC RDW Plt Count Lymph % (Auto) Lymph # (Auto) Seg Neutrophils % PT D-Dimer 262.94 H ABG pO2 ABG HCO3 ABG O2 Saturation ABG Base Excess ABG Hemoglobin Oxyhemoglobin Sodium 136 L BUN 21 H Creatinine 0.3 L Glucose 104 H POC Glucose Lactic Acid Magnesium Ferritin 806.9 H ALT Lactate Dehydrogenase Total Creatine Kinase CK-MB (CK-2) CK-MB (CK-2) Rel Index Troponin T C-Reactive Protein Total Protein 5.8 L Albumin 2.8 L HDL Cholesterol Coronavirus (PCR) 02/23/22 02/23/22 02/23/22 04:58 12:23 18:32 WBC 4.3 L RBC 3.40 L Hgb 10.3 L Hct 28.7 L MCV MCH MCHC 36 H RDW 16.9 H Plt Count Lymph % (Auto) Lymph # (Auto) Seg Neutrophils % PT D-Dimer ABG pO2 ABG HCO3 ABG O2 Saturation ABG Base Excess ABG Hemoglobin Oxyhemoglobin Sodium BUN Creatinine Glucose POC Glucose 108 H 163 H Lactic Acid Magnesium Ferritin ALT Lactate Dehydrogenase Total Creatine Kinase CK-MB (CK-2) CK-MB (CK-2) Rel Index Troponin T C-Reactive Protein Total Protein Albumin HDL Cholesterol Coronavirus (PCR) 02/24/22 02/24/22 02/24/22 04:30 11:31 15:00 WBC RBC Hgb Hct MCV MCH MCHC RDW Plt Count Lymph % (Auto) Lymph # (Auto) Seg Neutrophils % PT D-Dimer ABG pO2 62.1 L ABG HCO3 28.3 H ABG O2 Saturation 94.3 L ABG Base Excess 3.7 H ABG Hemoglobin Oxyhemoglobin 92.7 L Sodium BUN 22 H Creatinine 0.2 L Glucose POC Glucose 123 H Lactic Acid Magnesium Ferritin ALT Lactate Dehydrogenase Total Creatine Kinase CK-MB (CK-2) CK-MB (CK-2) Rel Index Troponin T C-Reactive Protein Total Protein 5.9 L Albumin 2.7 L HDL Cholesterol Coronavirus (PCR) 02/24/22 02/25/22 02/25/22 16:23 04:34 04:34 WBC RBC Hgb Hct MCV MCH MCHC RDW Plt Count Lymph % (Auto) Lymph # (Auto) Seg Neutrophils % PT D-Dimer 258.52 H ABG pO2 ABG HCO3 ABG O2 Saturation ABG Base Excess ABG Hemoglobin Oxyhemoglobin Sodium BUN Creatinine Glucose POC Glucose 122 H Lactic Acid Magnesium Ferritin 716.1 H ALT Lactate Dehydrogenase Total Creatine Kinase CK-MB (CK-2) CK-MB (CK-2) Rel Index Troponin T C-Reactive Protein Total Protein Albumin HDL Cholesterol Coronavirus (PCR) 02/25/22 02/25/22 04:34 04:34 WBC RBC Hgb 11.7 L Hct 34.9 L D MCV 78 L MCH 26 L MCHC RDW 17.0 H Plt Count 451 H Lymph % (Auto) 7.8 L Lymph # (Auto) 0.6 L Seg Neutrophils % 87.8 H PT D-Dimer ABG pO2 ABG HCO3 ABG O2 Saturation ABG Base Excess ABG Hemoglobin Oxyhemoglobin Sodium BUN Creatinine 0.3 L Glucose 115 H POC Glucose Lactic Acid Magnesium Ferritin ALT Lactate Dehydrogenase 187 H Total Creatine Kinase CK-MB (CK-2) CK-MB (CK-2) Rel Index Troponin T C-Reactive Protein Total Protein 5.8 L Albumin 3.1 L HDL Cholesterol Coronavirus (PCR)
--- NOTE | 2022-02-25 14:38 | Progress Note ---
Assessment and Plan Assessment and plan: This is a 61-year-old male with current nicotine abuse, HTN and COPD who presented to emergency department on 02/20 with shortness of breath over the past 2 to 3 days, cough with sputum production and increasing shortness of breath not responding to inhalers or nebulizer treatments. In the emergency department patient was tachycardic and tachypneic and SPO2 was in the 70s on room air. Patient was given albuterol, magnesium, Solu-Medrol by EMS on arrival. Recommend the emergency department. CXR wet read with right lower lobe pneumonia. Patient was admitted to the hospitalist service with acute hypoxic respiratory failure, right lower lobe pneumonia and COPD exacerbation with consult to pulmonology. Hospital course to date: 02/21: No acute events overnight, COVID-19 PCR positive, infectious disease consulted started on remdesivir 02/22: Patient transferred to [facility], currently on CPAP with increased work of breathing. Given 1 dose of Ativan which helped work of breathing and heart rate decreased. 02/23: Patient was on continuous BiPAP all night, this morning patient weaned to high flow nasal cannula with RT. Noted bradycardia overnight and patient is on remdesivir therefore Precedex will be stopped and as needed Ativan will be ordered. Patient states that he feels much better and instructed to self prone as tolerated. 02/24: Improved respirations. Vitals improved, no longer bradycardic as patient off of precedex. prn ativan for anxiety however counseled on how to deal with "panic attacks". Currently on HiFlo NC, RT will attempt to de-escalate to salter NC. continue with bipap qhs/prn. Continued therapy for covid 19 viral infection with solumedrol and remdesivir. Pulmonary and ID recommendations reviewed. Continue [facility] level of care at this time, prognosis remains guarded. 02/25: Patient seen and examined today. Continues off Precedex. Continues on BiPAP and high flow and intermittently. Discussed with biophysics professor patient to be transferred to the medical floor and continue weaning oxygen as tolerated. Mildly elevated D-dimer considering COVID diagnosis with empirically treat with full dose anticoagulation. Recommend proning as tolerated. Home O2 evaluation prior to discharge Assessment and plan: This is a 61-year-old male with current nicotine abuse, HTN and COPD admitted with COPD exacerbation secondary to COVID-19 infection Neuro: Generalized anxiety disorder -As needed Ativan IV -S/p Precedex drip, now d/c -Reorientation as needed -Maintain sleep-wake cycle -As needed analgesia Cardiac: SB, h/o hypertension -Cardiology consulted, appreciate recommendations -Blood pressure monitoring per protocol -Hold home antihypertension regimen Respiratory: Acute hypoxemic respiratory failure, COPD exacerbation, h/o COPD, current nicotine abuse -Pulmonology consulted, appreciate recommendations -s/p Ventimask -BiPAP as needed -Wean to hyponasal cannula -SPO2 monitor per protocol -Supplemental oxygen as needed -Pulmonary hygiene -Albuterol, Pulmicort, Brovana GI: Moderate protein calorie malnutrition -24 hours -215 ml -Regular diet -Nutrition supplementation : NAD -Monitor intake and output -Renally dose medications -Avoid nephrotoxic medications -Trend BMP ID: COVID 19 infection -Infectious disease consulted, appreciate recommendation -COVID-19 PCR positive -Solu-Medrol 60 mg every 6 hours -Antibiotic discontinued -Remdesivir for 5 days (02/21-02/26) -Contact/droplet precautions -f/u blood culture -Monitor WBC and temperature curve -Trend COVID-19 inflammatory markers -Anticoagulation per protocol Endo: NAD -Avoid hypoglycemia Heme: Leukopenia (resolved) -Trend CBC -Transfuse hemoglobin less than 7 -SCDs to BLE while in bed History Interval history: Patient seen and examined resting comfortably although was more hypoxic this m orning requiring BiPAP overnight and now on high flow this morning. Hospitalist Physical - Physical exam Narrative exam: - Physical exam Narrative exam: General appearance: Present: mild distress, cachectic, was on BiPAP this morning interchanges with high flow - EENT Eyes: Present: PERRL, EOM intact ENT: clear oral mucosa, dentition normal - Neck Neck: Present: normal ROM - Respiratory Respiratory effort: normal Respiratory: bilateral: diminished - Cardiovascular Rhythm: regular Heart Sounds: Present: S1 & S2. Absent: systolic murmur, diastolic murmur - Extremities Extremities: no ischemia, pulses intact, pulses symmetrical, No edema, normal temperature, normal color, Full ROM Peripheral Pulses: within normal limits - Abdominal General gastrointestinal: soft, non-tender, non-distended, normal bowel sounds - Integumentary Integumentary: Present: warm, dry - Psychiatric Psychiatric: cooperative - Neurologic Neurologic: CNII-XII intact, no focal deficits, moves all extremities - Allied Health Allied health notes reviewed: nursing, RT - Constitutional Vitals: Temp Pulse Resp BP Pulse Ox 97.3 F L 83 28 H 127/74 99 02/25/22 11:57 02/25/22 10:00 02/25/22 10:00 02/25/22 10:00 02/25/22 10:00 General appearance: Present: mild distress, cachectic HEART Score - HEART Score Troponin: Troponin T TNR 02/20/22 14:34 Results - Labs CBC & Chem 7: 02/25/22 04:34 02/25/22 04:34 Labs: Laboratory Last Values WBC 7.1 K/mm3 (4.5-11.0) 02/25/22 04:34 RBC 4.45 M/mm3 (3.65-5.03) 02/25/22 04:34 Hgb 11.7 gm/dl (11.8-15.2) L 02/25/22 04:34 Hct 34.9 % (35.5-45.6) L D 02/25/22 04:34 MCV 78 fl (84-94) L 02/25/22 04:34 MCH 26 pg (28-32) L 02/25/22 04:34 MCHC 34 % (32-34) 02/25/22 04:34 RDW 17.0 % (13.2-15.2) H 02/25/22 04:34 Plt Count 451 K/mm3 (140-440) H 02/25/22 04:34 Lymph % (Auto) 7.8 % (13.4-35.0) L 02/25/22 04:34 [place] % (Auto) 3.8 % (0.0-7.3) 02/25/22 04:34 Eos % (Auto) 0.4 % (0.0-4.3) 02/25/22 04:34 Baso % (Auto) 0.2 % (0.0-1.8) 02/25/22 04:34 Lymph # (Auto) 0.6 K/mm3 (1.2-5.4) L 02/25/22 04:34 [place] # (Auto) 0.3 K/mm3 (0.0-0.8) 02/25/22 04:34 Eos # (Auto) 0.0 K/mm3 (0.0-0.4) 02/25/22 04:34 Baso # (Auto) 0.0 K/mm3 (0.0-0.1) 02/25/22 04:34 Seg Neutrophils % 87.8 % (40.0-70.0) H 02/25/22 04:34 Seg Neutrophils # 6.2 K/mm3 (1.8-7.7) 02/25/22 04:34 PT 15.4 Sec. (12.2-14.9) H 02/20/22 13:33 INR 1.07 (0.87-1.13) 02/20/22 13:33 D-Dimer 258.52 ng/mlDDU (0-234) H 02/25/22 04:34 ABG pH 7.440 pH Units (7.350-7.450) 02/24/22 15:00 ABG pCO2 42.6 mm Hg 02/24/22 15:00 ABG pO2 62.1 mm Hg (80.0-90.0) L 02/24/22 15:00 ABG HCO3 28.3 mmol/L (20.0-26.0) H 02/24/22 15:00 ABG O2 Saturation 94.3 % (95.0-99.0) L 02/24/22 15:00 ABG O2 Content 18.6 (0.0-44) 02/24/22 15:00 ABG Base Excess 3.7 mmol/L (-2.0-3.0) H 02/24/22 15:00 ABG Hemoglobin 14.3 gm/dl (14.0-18.0) 02/24/22 15:00 ABG Carboxyhemoglobin 1.2 % (0.0-5.0) 02/24/22 15:00 ABG Methemoglobin 0.5 % (0.0-1.5) 02/24/22 15:00 Oxyhemoglobin 92.7 % (95.0-99.0) L 02/24/22 15:00 FiO2 30 % 02/24/22 15:00 Sodium 139 mmol/L (137-145) 02/25/22 04:34 Potassium 3.7 mmol/L (3.6-5.0) 02/25/22 04:34 Chloride 99.8 mmol/L (98-107) 02/25/22 04:34 Carbon Dioxide 30 mmol/L (22-30) 02/25/22 04:34 Anion Gap 13 mmol/L 02/25/22 04:34 BUN 15 mg/dL (9-20) 02/25/22 04:34 Creatinine 0.3 mg/dL (0.8-1.3) L 02/25/22 04:34 Estimated GFR > 60 ml/min 02/25/22 04:34 BUN/Creatinine Ratio 50 % 02/25/22 04:34 Glucose 115 mg/dL (75-100) H 02/25/22 04:34 POC Glucose 122 mg/dL (70-105) H 02/24/22 16:23 Lactic Acid 2.10 mmol/L (0.7-2.0) H* 02/20/22 14:34 Calcium 8.5 mg/dL (8.4-10.2) 02/25/22 04:34 Magnesium TNR 02/20/22 14:34 Ferritin 716.1 ng/mL (30.0-300.0) H 02/25/22 04:34 Total Bilirubin 0.40 mg/dL (0.1-1.2) 02/25/22 04:34 AST 12 units/L (5-40) 02/25/22 04:34 ALT 11 units/L (7-56) 02/25/22 04:34 Alkaline Phosphatase 77 units/L (35-129) 02/25/22 04:34 Lactate Dehydrogenase 187 units/L (91-180) H 02/25/22 04:34 Total Creatine Kinase TNR 02/20/22 14:34 CK-MB (CK-2) TNR 02/20/22 14:34 CK-MB (CK-2) Rel Index TNR 02/20/22 14:34 Troponin T TNR 02/20/22 14:34 C-Reactive Protein 0.60 mg/dL (0.00-1.30) 02/25/22 04:34 NT-Pro-B Natriuret Pep 146.4 pg/mL (0-900) 02/20/22 13:39 Total Protein 5.8 g/dL (6.3-8.2) L 02/25/22 04:34 Albumin 3.1 g/dL (3.9-5) L 02/25/22 04:34 Albumin/Globulin Ratio 1.1 % 02/25/22 04:34 Triglycerides 140 mg/dL (2-149) 02/20/22 13:39 Cholesterol 154 mg/dL (50-199) 02/20/22 13:39 LDL Cholesterol Direct 90 mg/dL (50-130) 02/20/22 13:39 HDL Cholesterol 34 mg/dL (40-59) L 02/20/22 13:39 Cholesterol/HDL Ratio 4.52 % 02/20/22 13:39 Lipase TNR 02/20/22 14:34 Urine Color Yellow (Yellow) 02/20/22 18:53 Urine Turbidity Cloudy (Clear) 02/20/22 18:53 Specific [place] (Man) 1.020 (1.003-1.030) 02/20/22 18:53 Ur Protein (Man) 1+ mg/dL (Negative) 02/20/22 18:53 Ur Ketones (Man) Negative (Negative) 02/20/22 18:53 Ur Nitrite (Man) Negative (Negative) 02/20/22 18:53 Ur Reducing Substances Not Reportable 02/20/22 18:53 Urine Bilirubin (Man) Negative (Negative) 02/20/22 18:53 Leukocyte Esterase (Man) Negative (Negative) 02/20/22 18:53 Urine WBC (Auto) 3.0 /HPF (0.0-6.0) 02/20/22 18:53 Urine RBC (Auto) 1.0 /HPF (0.0-6.0) 02/20/22 18:53 Urine RBC (Manual) Negative (Negative) 02/20/22 18:53 Urine Mucus 1+ /HPF 02/20/22 18:53 Nasal Screen MRSA (PCR) Negative (Negative) 02/22/22 Unknown Urine Opiates Screen Negative 02/20/22 18:53 Urine Methadone Screen Negative 02/20/22 18:53 Ur Barbiturates Screen Negative 02/20/22 18:53 Ur Phencyclidine Scrn Negative 02/20/22 18:53 Ur Amphetamines Screen Negative 02/20/22 18:53 U Benzodiazepines Scrn Negative 02/20/22 18:53 Urine Cocaine Screen Negative 02/20/22 18:53 U Marijuana (THC) Screen Negative 02/20/22 18:53 Drugs of Abuse Note Disclamer 02/20/22 18:53 Coronavirus (PCR) Positive (Negative) A 02/21/22 11:30 Microbiology: Microbiology 02/20/22 13:39 Peripheral/Venous Blood Culture - Preliminary NO GROWTH AFTER 4 DAYS 02/20/22 13:39 Peripheral/Venous Blood Culture - Preliminary NO GROWTH AFTER 4 DAYS Linder/IV: Voiding Method Urinal Active Medications - Current Medications Current Medications: Generic Name Dose Route Start Last Admin Trade Name Freq PRN Reason Stop Dose Admin Acetaminophen 650 mg 02/20/22 17:46 02/24/22 00:03 Acetaminophen 325 Mg Tab PO 650 mg Q4H PRN Administration Pain MILD(1-3)/Fever >100.5/SALEEM Albuterol 2.5 mg 02/21/22 12:00 Albuterol 2.5 Mg/3 Ml Nebu IH Q4HRT PRN Shortness Of Breath Arformoterol Tartrate 15 mcg 02/21/22 20:00 02/25/22 08:04 Arformoterol 15 Mcg/2 Ml Nebu IH 15 mcg Q12HRT LIONEL Administration Budesonide 0.5 mg 02/21/22 20:00 02/25/22 08:04 Budesonide 0.5 Mg/2 Ml Nebu IH 0.5 mg Q12HRT LIONEL Administration Famotidine 20 mg 02/20/22 22:00 02/25/22 09:17 Famotidine 20 Mg Tab PO 20 mg BID LIONEL Administration Heparin Sodium (Porcine) 5,000 unit 02/20/22 22:00 02/25/22 09:17 Heparin 5,000 Unit/1 Ml Vial SUB-Q 5,000 unit Q12HR LIONEL Administration Lorazepam 0.5 mg 02/23/22 12:53 02/24/22 20:20 Lorazepam 2 Mg/Ml Vial IV 0.5 mg Q4H PRN Administration Anxiety Methylprednisolone Sodium Succinate 60 mg 02/22/22 00:00 02/25/22 13:51 Methylprednisolone Sod Succinate 125 Mg/2 Ml Inj IV 60 mg Q6HR LIONEL Administration Metoclopramide HCl 10 mg 02/20/22 17:46 Metoclopramide 10 Mg/2 Ml Inj IV Q6H PRN Nausea And Vomiting Ondansetron HCl 4 mg 02/20/22 17:46 Ondansetron 4 Mg/2 Ml Inj IV Q8H PRN Nausea And Vomiting Oxycodone/Acetaminophen 1 tab 02/20/22 17:46 Oxycodone /Acetaminophen 5-325mg Tab PO Q6H PRN Pain, Moderate (4-6) Sodium Chloride 10 ml 02/20/22 22:00 02/25/22 09:17 Sodium Chloride 0.9% 10 Ml Flush Syringe IV 10 ml BID LIONEL Administration Sodium Chloride 10 ml 02/20/22 17:46 Sodium Chloride 0.9% 10 Ml Flush Syringe IV PRN PRN LINE FLUSH Sodium Chloride 50 ml 02/22/22 22:30 02/24/22 14:55 Sodium Chloride 0.9% 50 Ml Ivpb IV 02/26/22 14:01 50 ml Q24HR@1400 LIONEL Administration Nutrition/Malnutrition Assess - Dietary Evaluation Nutrition/Malnutrition Findings: Nutrition Notes Start: 02/21/22 14:17 Freq: Status: Active Protocol: Document 02/24/22 16:30 ALLA (Rec: 02/24/22 16:33 [facility] [place] [id number]) Nutrition Notes Initial or Follow up Reassessment Current Diagnosis COPD,Hypertension,Respiratory Failure Other Pertinent Diagnosis RLL pneu, COPD exacerbation, COVID-19 (+) Current Diet Regular + Ensure Enlive TID Labs/Tests Reviewed Pertinent Medications Reviewed Height 5 ft 5 in Weight 35.6 kg [place] Body Weight (kg) 61.81 BMI 13.0 Weight Status Underweight Subjective/Other Information Per records, pt consumed 83% meals yesterday. Pt on HFNC during the day and BiPap support at night. Percent of energy/protein needs met: 100% energy and pro (does not include ONS) Burn Absent Trauma Absent #1 Nutrition Diagnosis Malnutrition Diagnosis Progress(for reassessment Continues documentation) Is patient on ventilator? No Is Patient Ambulatory and/or Out of Bed Yes REE-([facility]-ambulatory/OOB) [ 1401.244 [id number]] Kcal/Kg value to use for calculation 50 Approximate Energy Requirements Using 1780 kcal/Kg Calculation Used for Recommendations Kcal/kg Additional Notes Pro needs 1.2-1.5g/k-53g/ day Fluid needs 1ml/kcal Nutrition Intervention Change Diet Order: Continue current diet order Add Supplement/Snack (indicate name/kcal Ensure High Protein TID ( /protein ) Ensure Enlive not in stock until February 2022) Provides kCal: 480 Provides Protein (gm) 48 Goal #1 PO intake of meals plus ONS to meet 100% of energy and pro needs Goal #2 Wt maintenance and/or gain Follow-Up By: 02/28/22 Additional Comments F/U: intakes (meals/ONS), wt, resp status
--- NOTE | 2022-02-25 15:04 | Progress Note ---
Assessment and Plan Cultures: Blood culture no growth COVID-19 PCR positive. A/P: 61-year-old man past medical history COPD, nicotine abuse now with: #Severe COVID-19 pneumonia, acute hypoxemic respiratory failure: Likely secondary to COVID-19 infection. Requiring BiPAP/HFNC. #COPD #Leukopenia: Secondary to COVID-19 Recommendations: -Continue steroids for 10 days, on Solu-Medrol per pulm/ICU -completed Remdesivir for 5 days -CRP downtrending, did not meet criteria for Actemra Priyanka Schultz MD, FACP, [facility] O: [phone] F: [phone] C: [phone] Subjective Date of service: 02/25/22 Interval history: Afebrile. Remains on HFNC. Objective - Exam Narrative Exam: Physical Exam: Constitutional: Alert, cooperative. No acute distress Head, Ears, Nose: Normocephalic, atraumatic. External ears, nose normal Eyes: Conjunctivae/corneas clear. No icterus. No ptosis. Neck: Supple, no meningeal signs Cardiovascular: S1, S2 + Respiratory: Good air entry, clear to auscultation bilaterally GI: Soft, non-tender; bowel sounds normal. No peritoneal signs Musculoskeletal: No pedal edema, no cyanosis. Skin: No rash or abscess Hem/Lymphatic: No palpable cervical or supraclavicular nodes. No lymphangitis Psych: Mood ok. Affect normal Neurological: Awake, alert, oriented. No gross abnormality - Constitutional Vitals: Vital Signs Temp Pulse Resp BP Pulse Ox 97.3 F L 83 28 H 127/74 99 02/25/22 11:57 02/25/22 10:00 02/25/22 10:00 02/25/22 10:00 02/25/22 10:00 Temperature -Last 24 Hours Temperature 97.3 F Temperature 97.5 F Temperature 98.2 F Temperature 96.8 F Temperature 97.8 F - Labs CBC & Chem 7: 02/25/22 04:34 02/25/22 04:34 Labs: Abnormal lab results 02/24/22 02/24/22 02/24/22 Range/Units 11:31 15:00 16:23 Hgb (11.8-15.2) gm/dl Hct (35.5-45.6) % MCV (84-94) fl MCH (28-32) pg RDW (13.2-15.2) % Plt Count (140-440) K/mm3 Lymph % (Auto) (13.4-35.0) % Lymph # (Auto) (1.2-5.4) K/mm3 Seg Neutrophils % (40.0-70.0) % D-Dimer (0-234) ng/mlDDU ABG pO2 62.1 L (80.0-90.0) mm Hg ABG HCO3 28.3 H (20.0-26.0) mmol/L ABG O2 Saturation 94.3 L (95.0-99.0) % ABG Base Excess 3.7 H (-2.0-3.0) mmol/L Oxyhemoglobin 92.7 L (95.0-99.0) % Creatinine (0.8-1.3) mg/dL Glucose (75-100) mg/dL POC Glucose 123 H 122 H (70-105) mg/dL Ferritin (30.0-300.0) ng/mL Lactate Dehydrogenase (91-180) units/L Total Protein (6.3-8.2) g/dL Albumin (3.9-5) g/dL 02/25/22 02/25/22 02/25/22 Range/Units 04:34 04:34 04:34 Hgb (11.8-15.2) gm/dl Hct (35.5-45.6) % MCV (84-94) fl MCH (28-32) pg RDW (13.2-15.2) % Plt Count (140-440) K/mm3 Lymph % (Auto) (13.4-35.0) % Lymph # (Auto) (1.2-5.4) K/mm3 Seg Neutrophils % (40.0-70.0) % D-Dimer 258.52 H (0-234) ng/mlDDU ABG pO2 (80.0-90.0) mm Hg ABG HCO3 (20.0-26.0) mmol/L ABG O2 Saturation (95.0-99.0) % ABG Base Excess (-2.0-3.0) mmol/L Oxyhemoglobin (95.0-99.0) % Creatinine 0.3 L (0.8-1.3) mg/dL Glucose 115 H (75-100) mg/dL POC Glucose (70-105) mg/dL Ferritin 716.1 H (30.0-300.0) ng/mL Lactate Dehydrogenase 187 H (91-180) units/L Total Protein 5.8 L (6.3-8.2) g/dL Albumin 3.1 L (3.9-5) g/dL 02/25/22 Range/Units 04:34 Hgb 11.7 L (11.8-15.2) gm/dl Hct 34.9 L D (35.5-45.6) % MCV 78 L (84-94) fl MCH 26 L (28-32) pg RDW 17.0 H (13.2-15.2) % Plt Count 451 H (140-440) K/mm3 Lymph % (Auto) 7.8 L (13.4-35.0) % Lymph # (Auto) 0.6 L (1.2-5.4) K/mm3 Seg Neutrophils % 87.8 H (40.0-70.0) % D-Dimer (0-234) ng/mlDDU ABG pO2 (80.0-90.0) mm Hg ABG HCO3 (20.0-26.0) mmol/L ABG O2 Saturation (95.0-99.0) % ABG Base Excess (-2.0-3.0) mmol/L Oxyhemoglobin (95.0-99.0) % Creatinine (0.8-1.3) mg/dL Glucose (75-100) mg/dL POC Glucose (70-105) mg/dL Ferritin (30.0-300.0) ng/mL Lactate Dehydrogenase (91-180) units/L Total Protein (6.3-8.2) g/dL Albumin (3.9-5) g/dL
[2022-02-25] MEDS: REMDESIVIR 100 MG in SODIUM CHLORIDE 0.9% 250ML 250 ML IV SCH (15:43)
[2022-02-25] MEDS ORDERED: APIXABAN 5 MG TAB PO SCH (22:00)
[2022-02-25 23:38] LABS: Hematocrit 33.6 % (35.5-45.6); Hemoglobin 11.2 gm/dl (11.8-15.2); Mean Corpuscular HGB Conc 33 % (32-34); Mean Corpuscular Volume 85 fl (84-94); Platelet Count 446 K/mm3 (140-440); Red Blood Count 3.97 M/mm3 (3.65-5.03); Red Cell Distribution Width 16.6 % (13.2-15.2)
[2022-02-25 23:47] LABS: INR 1.26 (0.87-1.13)
[2022-02-26] MEDS: methylPREDNISolone Sod Succinate 125 MG/2 ML INJ IV SCH ×6 (02:14→23:04)
[2022-02-26] MEDS: SODIUM CHLORIDE 0.9% 50 ML IVPB IV SCH ×2 (02:15→14:15)
[2022-02-26] MEDS: HEPARIN 5,000 UNIT/1 ML VIAL SUB-Q SCH ×3 (06:44→22:56)
[2022-02-26] MEDS: ARFORMOTEROL 15 MCG/2 ML NEBU IH SCH ×2 (08:36→19:57)
[2022-02-26] MEDS: BUDESONIDE 0.5 MG/2 ML NEBU IH SCH ×2 (08:36→19:57)
[2022-02-26] MEDS: FAMOTIDINE 20 MG TAB PO SCH ×2 (09:22→22:55)
--- NOTE | 2022-02-26 10:00 | Progress Note ---
Assessment and Plan Cultures: Blood culture no growth COVID-19 PCR positive. A/P: 61-year-old man past medical history COPD, nicotine abuse now with: #Severe COVID-19 pneumonia, acute hypoxemic respiratory failure: Likely secondary to COVID-19 infection. Requiring BiPAP/HFNC. #COPD #Leukopenia: Secondary to COVID-19 Recommendations: -Continue steroids for 10 days, on Solu-Medrol per pulm/ICU -completed Remdesivir -continue oxygen weaning as tolerated Priyanka Schultz MD, FACP, [facility] O: [phone] F: [phone] C: [phone] Subjective Date of service: 02/26/22 Interval history: Afebrile. Remains on HFNC but oxygen weaned a little. Did not require BiPAP last night, d/w RN, no other issues. Objective - Exam Narrative Exam: Physical Exam: Constitutional: Alert, cooperative. No acute distress Head, Ears, Nose: Normocephalic, atraumatic. External ears, nose normal Eyes: Conjunctivae/corneas clear. No icterus. No ptosis. Neck: Supple, no meningeal signs Cardiovascular: S1, S2 + Respiratory: Good air entry, clear to auscultation bilaterally GI: Soft, non-tender; bowel sounds normal. No peritoneal signs Musculoskeletal: No pedal edema, no cyanosis. Skin: No rash or abscess Hem/Lymphatic: No palpable cervical or supraclavicular nodes. No lymphangitis Psych: Mood ok. Affect normal Neurological: Awake, alert, oriented. No gross abnormality - Constitutional Vitals: Vital Signs Temp Pulse Resp BP Pulse Ox 97.8 F 67 24 101/65 95 02/26/22 04:00 02/26/22 08:00 02/26/22 08:00 02/26/22 06:00 02/26/22 08:37 Temperature -Last 24 Hours Temperature 97.8 F Temperature 97.4 F Temperature 98.5 F Temperature 97.4 F Temperature 97.3 F - Labs CBC & Chem 7: 02/25/22 22:44 02/25/22 22:44 Labs: Abnormal lab results 02/25/22 02/25/22 02/25/22 Range/Units 22:44 22:44 22:44 Hgb 11.2 L (11.8-15.2) gm/dl Hct 33.6 L (35.5-45.6) % RDW 16.6 H (13.2-15.2) % Plt Count 446 H (140-440) K/mm3 PT 17.3 H (12.2-14.9) Sec. INR 1.26 H (0.87-1.13) APTT 42.0 H (24.2-36.6) Sec. Creatinine 0.3 L (0.8-1.3) mg/dL
--- NOTE | 2022-02-26 16:35 | Progress Note ---
Assessment and Plan Assessment and plan: This is a 61-year-old male with current nicotine abuse, HTN and COPD who presented to emergency department on 02/20 with shortness of breath over the past 2 to 3 days, cough with sputum production and increasing shortness of breath not responding to inhalers or nebulizer treatments. In the emergency department patient was tachycardic and tachypneic and SPO2 was in the 70s on room air. Patient was given albuterol, magnesium, and remdesivir by EMS on arrival. Recommend the emergency department. CXR wet read with right lower lobe pneumonia. Patient was admitted to the hospitalist service with acute hypoxic respiratory failure, right lower lobe pneumonia and COPD exacerbation with consult to pulmonology. Hospital course to date: 02/21: No acute events overnight, COVID-19 PCR positive, infectious disease consulted started on remdesivir 02/22: Patient transferred to [facility], currently on CPAP with increased work of breathing. Given 1 dose of Ativan which helped work of breathing and heart rate decreased. 02/23: Patient was on continuous BiPAP all night, this morning patient weaned to high flow nasal cannula with RT. Noted bradycardia overnight and patient is on remdesivir therefore Precedex will be stopped and as needed Ativan will be ordered. Patient states that he feels much better and instructed to self prone as tolerated. 02/24: Improved respirations. Vitals improved, no longer bradycardic as patient off of precedex. prn ativan for anxiety however counseled on how to deal with "panic attacks". Currently on HiFlo NC, RT will attempt to de-escalate to salter NC. continue with bipap qhs/prn. Continued therapy for covid 19 viral infection with solumedrol and remdesivir. Pulmonary and ID recommendations reviewed. Continue [facility] level of care at this time, prognosis remains guarded. 02/25: Patient seen and examined today. Continues off Precedex. Continues on BiPAP and high flow and intermittently. Discussed with collection teller patient to be transferred to the medical floor and continue weaning oxygen as tolerated. Mildly elevated D-dimer considering COVID diagnosis with empirically treat with full dose anticoagulation. Recommend proning as tolerated. Home O2 evaluation prior to discharge 02/26: Patient still hypoxic respiratory failure secondary to COVID-19 continue current management. He continues on steroids for 10 days, and has completed Remdesivir. We will continue to wean oxygen as tolerated. If continues to wean down on liters flow and FiO2 will likely transfer to the medical floor in a.m. Encourage proning as tolerated. Assessment and plan: This is a 61-year-old male with current nicotine abuse, HTN and COPD admitted with COPD exacerbation secondary to COVID-19 infection Neuro: Generalized anxiety disorder -As needed Ativan IV -S/p Precedex drip, now d/c -Reorientation as needed -Maintain sleep-wake cycle -As needed analgesia Cardiac: SB, h/o hypertension -Cardiology consulted, appreciate recommendations -Blood pressure monitoring per protocol -Hold home antihypertension regimen Respiratory: Acute hypoxemic respiratory failure, COPD exacerbation, h/o COPD, current nicotine abuse -Pulmonology consulted, appreciate recommendations -s/p Ventimask -BiPAP as needed -Wean to hyponasal cannula -SPO2 monitor per protocol -Supplemental oxygen as needed -Pulmonary hygiene -Albuterol, Pulmicort, Brovana GI: Moderate protein calorie malnutrition -24 hours -215 ml -Regular diet -Nutrition supplementation : NAD -Monitor intake and output -Renally dose medications -Avoid nephrotoxic medications -Trend BMP ID: COVID 19 infection -Infectious disease consulted, appreciate recommendation -COVID-19 PCR positive -Solu-Medrol 60 mg every 6 hours -Antibiotic discontinued -Remdesivir for 5 days (02/21-02/26) -Contact/droplet precautions -f/u blood culture -Monitor WBC and temperature curve -Trend COVID-19 inflammatory markers -Anticoagulation per protocol Endo: NAD -Avoid hypoglycemia Heme: Leukopenia (resolved) -Trend CBC -Transfuse hemoglobin less than 7 -SCDs to BLE while in bed History Interval history: Patient seen and examined resting comfortably remains on high flow nasal cannula. Did not require BiPAP again last night. Has been weaned down a little bit on the high flow. Hospitalist Physical - Physical exam Narrative exam: - Physical exam Narrative exam: General appearance: Present: mild distress, cachectic, continues on high flow nasal cannula - EENT Eyes: Present: PERRL, EOM intact ENT: clear oral mucosa, dentition normal - Neck Neck: Present: normal ROM - Respiratory Respiratory effort: normal Respiratory: bilateral: diminished - Cardiovascular Rhythm: regular Heart Sounds: Present: S1 & S2. Absent: systolic murmur, diastolic murmur - Extremities Extremities: no ischemia, pulses intact, pulses symmetrical, No edema, normal temperature, normal color, Full ROM Peripheral Pulses: within normal limits - Abdominal General gastrointestinal: soft, non-tender, non-distended, normal bowel sounds - Integumentary Integumentary: Present: warm, dry - Psychiatric Psychiatric: cooperative - Neurologic Neurologic: CNII-XII intact, no focal deficits, moves all extremities - Allied Health Allied health notes reviewed: nursing, RT - Constitutional Vitals: Temp Pulse Resp BP Pulse Ox 97.8 F 100 H 28 H 122/82 96 02/26/22 04:00 02/26/22 15:00 02/26/22 15:00 02/26/22 15:00 02/26/22 15:00 General appearance: Present: mild distress, cachectic HEART Score - HEART Score Troponin: Troponin T TNR 02/20/22 14:34 Results - Labs CBC & Chem 7: 02/25/22 22:44 02/25/22 22:44 Labs: Laboratory Last Values WBC 8.6 K/mm3 (4.5-11.0) 02/25/22 22:44 RBC 3.97 M/mm3 (3.65-5.03) 02/25/22 22:44 Hgb 11.2 gm/dl (11.8-15.2) L 02/25/22 22:44 Hct 33.6 % (35.5-45.6) L 02/25/22 22:44 MCV 85 fl (84-94) 02/25/22 22:44 MCH 28 pg (28-32) 02/25/22 22:44 MCHC 33 % (32-34) 02/25/22 22:44 RDW 16.6 % (13.2-15.2) H 02/25/22 22:44 Plt Count 446 K/mm3 (140-440) H 02/25/22 22:44 Lymph % (Auto) 7.8 % (13.4-35.0) L 02/25/22 04:34 [place] % (Auto) 3.8 % (0.0-7.3) 02/25/22 04:34 Eos % (Auto) 0.4 % (0.0-4.3) 02/25/22 04:34 Baso % (Auto) 0.2 % (0.0-1.8) 02/25/22 04:34 Lymph # (Auto) 0.6 K/mm3 (1.2-5.4) L 02/25/22 04:34 [place] # (Auto) 0.3 K/mm3 (0.0-0.8) 02/25/22 04:34 Eos # (Auto) 0.0 K/mm3 (0.0-0.4) 02/25/22 04:34 Baso # (Auto) 0.0 K/mm3 (0.0-0.1) 02/25/22 04:34 Seg Neutrophils % 87.8 % (40.0-70.0) H 02/25/22 04:34 Seg Neutrophils # 6.2 K/mm3 (1.8-7.7) 02/25/22 04:34 PT 17.3 Sec. (12.2-14.9) H 02/25/22 22:44 INR 1.26 (0.87-1.13) H 02/25/22 22:44 APTT 42.0 Sec. (24.2-36.6) H 02/25/22 22:44 D-Dimer 258.52 ng/mlDDU (0-234) H 02/25/22 04:34 ABG pH 7.440 pH Units (7.350-7.450) 02/24/22 15:00 ABG pCO2 42.6 mm Hg 02/24/22 15:00 ABG pO2 62.1 mm Hg (80.0-90.0) L 02/24/22 15:00 ABG HCO3 28.3 mmol/L (20.0-26.0) H 02/24/22 15:00 ABG O2 Saturation 94.3 % (95.0-99.0) L 02/24/22 15:00 ABG O2 Content 18.6 (0.0-44) 02/24/22 15:00 ABG Base Excess 3.7 mmol/L (-2.0-3.0) H 02/24/22 15:00 ABG Hemoglobin 14.3 gm/dl (14.0-18.0) 02/24/22 15:00 ABG Carboxyhemoglobin 1.2 % (0.0-5.0) 02/24/22 15:00 ABG Methemoglobin 0.5 % (0.0-1.5) 02/24/22 15:00 Oxyhemoglobin 92.7 % (95.0-99.0) L 02/24/22 15:00 FiO2 30 % 02/24/22 15:00 Sodium 139 mmol/L (137-145) 02/25/22 04:34 Potassium 3.7 mmol/L (3.6-5.0) 02/25/22 04:34 Chloride 99.8 mmol/L (98-107) 02/25/22 04:34 Carbon Dioxide 30 mmol/L (22-30) 02/25/22 04:34 Anion Gap 13 mmol/L 02/25/22 04:34 BUN 15 mg/dL (9-20) 02/25/22 04:34 Creatinine 0.3 mg/dL (0.8-1.3) L 02/25/22 22:44 Estimated GFR > 60 ml/min 02/25/22 22:44 BUN/Creatinine Ratio 50 % 02/25/22 04:34 Glucose 115 mg/dL (75-100) H 02/25/22 04:34 POC Glucose 122 mg/dL (70-105) H 02/24/22 16:23 Lactic Acid 2.10 mmol/L (0.7-2.0) H* 02/20/22 14:34 Calcium 8.5 mg/dL (8.4-10.2) 02/25/22 04:34 Magnesium TNR 02/20/22 14:34 Ferritin 716.1 ng/mL (30.0-300.0) H 02/25/22 04:34 Total Bilirubin 0.40 mg/dL (0.1-1.2) 02/25/22 04:34 AST 12 units/L (5-40) 02/25/22 04:34 ALT 11 units/L (7-56) 02/25/22 04:34 Alkaline Phosphatase 77 units/L (35-129) 02/25/22 04:34 Lactate Dehydrogenase 187 units/L (91-180) H 02/25/22 04:34 Total Creatine Kinase TNR 02/20/22 14:34 CK-MB (CK-2) TNR 02/20/22 14:34 CK-MB (CK-2) Rel Index TNR 02/20/22 14:34 Troponin T TNR 02/20/22 14:34 C-Reactive Protein 0.60 mg/dL (0.00-1.30) 02/25/22 04:34 NT-Pro-B Natriuret Pep 146.4 pg/mL (0-900) 02/20/22 13:39 Total Protein 5.8 g/dL (6.3-8.2) L 02/25/22 04:34 Albumin 3.1 g/dL (3.9-5) L 02/25/22 04:34 Albumin/Globulin Ratio 1.1 % 02/25/22 04:34 Triglycerides 140 mg/dL (2-149) 02/20/22 13:39 Cholesterol 154 mg/dL (50-199) 02/20/22 13:39 LDL Cholesterol Direct 90 mg/dL (50-130) 02/20/22 13:39 HDL Cholesterol 34 mg/dL (40-59) L 02/20/22 13:39 Cholesterol/HDL Ratio 4.52 % 02/20/22 13:39 Lipase TNR 02/20/22 14:34 Urine Color Yellow (Yellow) 02/20/22 18:53 Urine Turbidity Cloudy (Clear) 02/20/22 18:53 Specific [place] (Man) 1.020 (1.003-1.030) 02/20/22 18:53 Ur Protein (Man) 1+ mg/dL (Negative) 02/20/22 18:53 Ur Ketones (Man) Negative (Negative) 02/20/22 18:53 Ur Nitrite (Man) Negative (Negative) 02/20/22 18:53 Ur Reducing Substances Not Reportable 02/20/22 18:53 Urine Bilirubin (Man) Negative (Negative) 02/20/22 18:53 Leukocyte Esterase (Man) Negative (Negative) 02/20/22 18:53 Urine WBC (Auto) 3.0 /HPF (0.0-6.0) 02/20/22 18:53 Urine RBC (Auto) 1.0 /HPF (0.0-6.0) 02/20/22 18:53 Urine RBC (Manual) Negative (Negative) 02/20/22 18:53 Urine Mucus 1+ /HPF 02/20/22 18:53 Nasal Screen MRSA (PCR) Negative (Negative) 02/22/22 Unknown Urine Opiates Screen Negative 02/20/22 18:53 Urine Methadone Screen Negative 02/20/22 18:53 Ur Barbiturates Screen Negative 02/20/22 18:53 Ur Phencyclidine Scrn Negative 02/20/22 18:53 Ur Amphetamines Screen Negative 02/20/22 18:53 U Benzodiazepines Scrn Negative 02/20/22 18:53 Urine Cocaine Screen Negative 02/20/22 18:53 U Marijuana (THC) Screen Negative 02/20/22 18:53 Drugs of Abuse Note Disclamer 02/20/22 18:53 Coronavirus (PCR) Positive (Negative) A 02/21/22 11:30 Microbiology: Microbiology 02/20/22 13:39 Peripheral/Venous Blood Culture - Final NO GROWTH AFTER 5 DAYS 02/20/22 13:39 Peripheral/Venous Blood Culture - Final NO GROWTH AFTER 5 DAYS Linder/IV: Voiding Method Urinal Active Medications - Current Medications Current Medications: Generic Name Dose Route Start Last Admin Trade Name Freq PRN Reason Stop Dose Admin Acetaminophen 650 mg 02/20/22 17:46 02/24/22 00:03 Acetaminophen 325 Mg Tab PO 650 mg Q4H PRN Administration Pain MILD(1-3)/Fever >100.5/SALEEM Albuterol 2.5 mg 02/21/22 12:00 Albuterol 2.5 Mg/3 Ml Nebu IH Q4HRT PRN Shortness Of Breath Arformoterol Tartrate 15 mcg 02/21/22 20:00 02/26/22 08:36 Arformoterol 15 Mcg/2 Ml Nebu IH 15 mcg Q12HRT LIONEL Administration Budesonide 0.5 mg 02/21/22 20:00 02/26/22 08:36 Budesonide 0.5 Mg/2 Ml Nebu IH 0.5 mg Q12HRT LIONEL Administration Famotidine 20 mg 02/20/22 22:00 02/26/22 09:22 Famotidine 20 Mg Tab PO 20 mg BID LIONEL Administration Heparin Sodium (Porcine) 5,000 unit 02/25/22 16:00 02/26/22 14:25 Heparin 5,000 Unit/1 Ml Vial SUB-Q 5,000 unit Q8HR LIONEL Administration Lorazepam 0.5 mg 02/23/22 12:53 02/24/22 20:20 Lorazepam 2 Mg/Ml Vial IV 0.5 mg Q4H PRN Administration Anxiety Methylprednisolone Sodium Succinate 60 mg 02/22/22 00:00 02/26/22 11:42 Methylprednisolone Sod Succinate 125 Mg/2 Ml Inj IV 60 mg Q6HR LIONEL Administration Metoclopramide HCl 10 mg 02/20/22 17:46 Metoclopramide 10 Mg/2 Ml Inj IV Q6H PRN Nausea And Vomiting Ondansetron HCl 4 mg 02/20/22 17:46 Ondansetron 4 Mg/2 Ml Inj IV Q8H PRN Nausea And Vomiting Oxycodone/Acetaminophen 1 tab 02/20/22 17:46 Oxycodone /Acetaminophen 5-325mg Tab PO Q6H PRN Pain, Moderate (4-6) Sodium Chloride 10 ml 02/20/22 22:00 02/26/22 09:22 Sodium Chloride 0.9% 10 Ml Flush Syringe IV 10 ml BID LIONEL Administration Sodium Chloride 10 ml 02/20/22 17:46 Sodium Chloride 0.9% 10 Ml Flush Syringe IV PRN PRN LINE FLUSH Nutrition/Malnutrition Assess - Dietary Evaluation Nutrition/Malnutrition Findings: Nutrition Notes Start: 02/21/22 14:17 Freq: Status: Active Protocol: Document 02/24/22 16:30 ALLA (Rec: 02/24/22 16:33 [facility] [id number]) Nutrition Notes Initial or Follow up Reassessment Current Diagnosis COPD,Hypertension,Respiratory Failure Other Pertinent Diagnosis RLL pneu, COPD exacerbation, COVID-19 (+) Current Diet Regular + Ensure Enlive TID Labs/Tests Reviewed Pertinent Medications Reviewed Height 5 ft 5 in Weight 35.6 kg [place] Body Weight (kg) 61.81 BMI 13.0 Weight Status Underweight Subjective/Other Information Per records, pt consumed 83% meals yesterday. Pt on HFNC during the day and BiPap support at night. Percent of energy/protein needs met: 100% energy and pro (does not include ONS) Burn Absent Trauma Absent #1 Nutrition Diagnosis Malnutrition Diagnosis Progress(for reassessment Continues documentation) Is patient on ventilator? No Is Patient Ambulatory and/or Out of Bed Yes REE-(Hensel-St. or-ambulatory/OOB) [ 1401.244 [id number]] Kcal/Kg value to use for calculation 50 Approximate Energy Requirements Using 1780 kcal/Kg Calculation Used for Recommendations Kcal/kg Additional Notes Pro needs 1.2-1.5g/k-53g/ day Fluid needs 1ml/kcal Nutrition Intervention Change Diet Order: Continue current diet order Add Supplement/Snack (indicate name/kcal Ensure High Protein TID ( /protein ) Ensure Enlive not in stock until February 2022) Provides kCal: 480 Provides Protein (gm) 48 Goal #1 PO intake of meals plus ONS to meet 100% of energy and pro needs Goal #2 Wt maintenance and/or gain Follow-Up By: 02/28/22 Additional Comments F/U: intakes (meals/ONS), wt, resp status
--- NOTE | 2022-02-26 18:34 | Progress Note ---
Assessment and Plan 61 y/o male with acute respiratory failure from COPD exacerbation secondary to COVID 02/26/22: Patient had to go back on Bipap yesterday morning so transfer was held. Patient needs to wear NIV night, not for hypoxemia but given his degree of COPD and propensity for concomitant NORTH that is undiagnosed. This would benefit patient and help with oxygen requirements so please place patient on it. If patient refuses, please document. Continue high dose steroids until off HFNC. Anxiety therapy. 02/25/22: COntinue to wean FiO2 as tolerated. Most likely will need oxygen at discharge. Continue Remdesivir and steroids. Continue PRN NIV, can change night time to PRN as well. Daily negative fluid balance. Will transfer to floor. (COVID Floor) 02/24/22: No further bradycardia, actually tachy. Remains calm and RT is weaning HFNC. Continue Remdesivir and steroids. NIV at night and PRN. Prognosis remains guarded but improving. Today is his 62 birthday 02/23/22: Had some bradycardia this am. Concern for precedex induced vs remdesivir or a combination of both. Will stop precedex and put on PRN ativan. Did will with 0.5 yesterday so will do 0.6 IV q4. Bipap PRN and QHS. Tolerating HFNC right now. 1. high dose steroids 2. Bipap PRN and QHS 3. Remdesivir 4. CRP to low for Actemra 5. Negative fluid balance daily 6. Guarded prognosis, did well with ativan PRN so will initiate precedex therapy to help prevent intubation. Long discussion with outside of room and how the mortality would increase if placed on ventilator. Expressed understanding and they will discuss more. Subjective Date of service: 02/26/22 Interval history: No acute events. Still on HFNC but lower requirements. Per staff, did not wear NIV last night. Objective Vital Signs - 12hr 02/26/22 02/26/22 02/26/22 07:00 08:00 08:37 Temperature Pulse Rate 65 77 Pulse Rate [ 67 Bilateral] Pulse Rate [ 66 From Monitor] Respiratory 24 20 Rate Respiratory 24 Rate [Bilateral ] Blood Pressure 122/76 112/67 O2 Sat by Pulse 100 96 95 Oximetry 02/26/22 02/26/22 02/26/22 09:00 10:00 11:00 Temperature Pulse Rate 102 H 97 H 108 H Pulse Rate [ Bilateral] Pulse Rate [ From Monitor] Respiratory 27 H 26 H 26 H Rate Respiratory Rate [Bilateral ] Blood Pressure 126/85 110/63 99/63 O2 Sat by Pulse 94 97 95 Oximetry 02/26/22 02/26/22 02/26/22 12:00 13:00 14:00 Temperature Pulse Rate 96 H 103 H 100 H Pulse Rate [ Bilateral] Pulse Rate [ 96 H From Monitor] Respiratory 37 H 43 H 35 H Rate Respiratory Rate [Bilateral ] Blood Pressure 110/79 121/87 120/81 O2 Sat by Pulse 96 96 96 Oximetry 02/26/22 02/26/22 02/26/22 15:00 16:00 16:58 Temperature 98 F Pulse Rate 100 H 94 H Pulse Rate [ Bilateral] Pulse Rate [ 91 H From Monitor] Respiratory 28 H 30 H Rate Respiratory Rate [Bilateral ] Blood Pressure 122/82 119/70 O2 Sat by Pulse 96 96 Oximetry 02/26/22 02/26/22 17:00 18:00 Temperature Pulse Rate 105 H 102 H Pulse Rate [ Bilateral] Pulse Rate [ From Monitor] Respiratory 40 H 37 H Rate Respiratory Rate [Bilateral ] Blood Pressure 137/94 133/84 O2 Sat by Pulse 97 98 Oximetry Constitutional: appears uncomfortable, other (appears older than stated age) Eyes: non-icteric ENT: other (full face mask bipap on at present) Neck: supple Effort: very labored Ascultation: Bilateral: diminished breath sounds CBC and BMP: 02/25/22 22:44 02/25/22 22:44 ABG, PT/INR, D-dimer: ABG ABG pH 7.440 pH Units (7.350-7.450) 02/24/22 15:00 ABG pCO2 42.6 mm Hg 02/24/22 15:00 ABG pO2 62.1 mm Hg (80.0-90.0) L 02/24/22 15:00 ABG O2 Saturation 94.3 % (95.0-99.0) L 02/24/22 15:00 PT/INR, D-dimer PT 17.3 Sec. (12.2-14.9) H 02/25/22 22:44 INR 1.26 (0.87-1.13) H 02/25/22 22:44 D-Dimer 258.52 ng/mlDDU (0-234) H 02/25/22 04:34 Abnormal lab findings: Abnormal Labs 02/20/22 02/20/22 02/20/22 13:33 13:33 13:33 WBC RBC Hgb Hct MCV MCH 34 H MCHC 39 H* RDW 16.8 H Plt Count Lymph % (Auto) Lymph # (Auto) Seg Neutrophils % PT 15.4 H INR APTT D-Dimer ABG pO2 ABG HCO3 ABG O2 Saturation ABG Base Excess ABG Hemoglobin Oxyhemoglobin Sodium BUN Creatinine Glucose POC Glucose Lactic Acid 3.70 H* Magnesium Ferritin ALT Lactate Dehydrogenase Total Creatine Kinase CK-MB (CK-2) CK-MB (CK-2) Rel Index Troponin T C-Reactive Protein Total Protein Albumin HDL Cholesterol Coronavirus (PCR) 02/20/22 02/20/22 02/20/22 13:39 13:39 13:39 WBC RBC Hgb Hct MCV MCH MCHC RDW Plt Count Lymph % (Auto) Lymph # (Auto) Seg Neutrophils % PT INR APTT D-Dimer ABG pO2 ABG HCO3 ABG O2 Saturation ABG Base Excess ABG Hemoglobin Oxyhemoglobin Sodium BUN Creatinine 0.3 L Glucose 139 H POC Glucose Lactic Acid Magnesium 2.60 H Ferritin ALT 5 L Lactate Dehydrogenase Total Creatine Kinase 54 L CK-MB (CK-2) 6.4 H CK-MB (CK-2) Rel Index 11.8 H Troponin T 0.141 H* C-Reactive Protein Total Protein Albumin 3.4 L HDL Cholesterol 34 L Coronavirus (PCR) 02/20/22 02/20/22 02/21/22 14:34 16:08 05:28 WBC 3.2 L RBC Hgb 11.4 L Hct 32.3 L MCV MCH MCHC 35 H RDW 16.4 H Plt Count Lymph % (Auto) Lymph # (Auto) 0.6 L Seg Neutrophils % 73.5 H PT INR APTT D-Dimer ABG pO2 195.7 H ABG HCO3 ABG O2 Saturation 99.2 H ABG Base Excess ABG Hemoglobin 12.7 L Oxyhemoglobin Sodium BUN Creatinine Glucose POC Glucose Lactic Acid 2.10 H* Magnesium Ferritin ALT Lactate Dehydrogenase Total Creatine Kinase CK-MB (CK-2) CK-MB (CK-2) Rel Index Troponin T C-Reactive Protein Total Protein Albumin HDL Cholesterol Coronavirus (PCR) 02/21/22 02/21/22 02/21/22 05:28 09:20 09:20 WBC RBC Hgb Hct MCV MCH MCHC RDW Plt Count Lymph % (Auto) Lymph # (Auto) Seg Neutrophils % PT INR APTT D-Dimer 335.95 H ABG pO2 ABG HCO3 ABG O2 Saturation ABG Base Excess ABG Hemoglobin Oxyhemoglobin Sodium 136 L BUN Creatinine 0.2 L Glucose 141 H POC Glucose Lactic Acid Magnesium Ferritin 1666.0 H ALT < 5 L Lactate Dehydrogenase Total Creatine Kinase CK-MB (CK-2) CK-MB (CK-2) Rel Index Troponin T C-Reactive Protein Total Protein Albumin 3.0 L HDL Cholesterol Coronavirus (PCR) 02/21/22 02/21/22 02/22/22 09:20 11:30 04:41 WBC RBC 3.11 L Hgb 10.3 L Hct 27.9 L MCV MCH 33 H MCHC 37 H RDW 17.1 H Plt Count Lymph % (Auto) 12.1 L Lymph # (Auto) 0.7 L Seg Neutrophils % 80.9 H PT INR APTT D-Dimer ABG pO2 ABG HCO3 ABG O2 Saturation ABG Base Excess ABG Hemoglobin Oxyhemoglobin Sodium BUN Creatinine Glucose POC Glucose Lactic Acid Magnesium Ferritin ALT Lactate Dehydrogenase Total Creatine Kinase CK-MB (CK-2) CK-MB (CK-2) Rel Index Troponin T C-Reactive Protein 6.70 H Total Protein Albumin HDL Cholesterol Coronavirus (PCR) Positive A 02/22/22 02/22/22 02/22/22 04:41 04:41 12:20 WBC RBC Hgb Hct MCV MCH MCHC RDW Plt Count Lymph % (Auto) Lymph # (Auto) Seg Neutrophils % PT INR APTT D-Dimer ABG pO2 116.2 H ABG HCO3 26.6 H ABG O2 Saturation ABG Base Excess ABG Hemoglobin 11.9 L Oxyhemoglobin Sodium BUN Creatinine 0.3 L Glucose 116 H POC Glucose Lactic Acid Magnesium Ferritin 1116.0 H ALT Lactate Dehydrogenase Total Creatine Kinase CK-MB (CK-2) CK-MB (CK-2) Rel Index Troponin T C-Reactive Protein 2.70 H Total Protein Albumin HDL Cholesterol Coronavirus (PCR) 02/23/22 02/23/22 02/23/22 04:58 04:58 04:58 WBC RBC Hgb Hct MCV MCH MCHC RDW Plt Count Lymph % (Auto) Lymph # (Auto) Seg Neutrophils % PT INR APTT D-Dimer 262.94 H ABG pO2 ABG HCO3 ABG O2 Saturation ABG Base Excess ABG Hemoglobin Oxyhemoglobin Sodium 136 L BUN 21 H Creatinine 0.3 L Glucose 104 H POC Glucose Lactic Acid Magnesium Ferritin 806.9 H ALT Lactate Dehydrogenase Total Creatine Kinase CK-MB (CK-2) CK-MB (CK-2) Rel Index Troponin T C-Reactive Protein Total Protein 5.8 L Albumin 2.8 L HDL Cholesterol Coronavirus (PCR) 02/23/22 02/23/22 02/23/22 04:58 12:23 18:32 WBC 4.3 L RBC 3.40 L Hgb 10.3 L Hct 28.7 L MCV MCH MCHC 36 H RDW 16.9 H Plt Count Lymph % (Auto) Lymph # (Auto) Seg Neutrophils % PT INR APTT D-Dimer ABG pO2 ABG HCO3 ABG O2 Saturation ABG Base Excess ABG Hemoglobin Oxyhemoglobin Sodium BUN Creatinine Glucose POC Glucose 108 H 163 H Lactic Acid Magnesium Ferritin ALT Lactate Dehydrogenase Total Creatine Kinase CK-MB (CK-2) CK-MB (CK-2) Rel Index Troponin T C-Reactive Protein Total Protein Albumin HDL Cholesterol Coronavirus (PCR) 02/24/22 02/24/22 02/24/22 04:30 11:31 15:00 WBC RBC Hgb Hct MCV MCH MCHC RDW Plt Count Lymph % (Auto) Lymph # (Auto) Seg Neutrophils % PT INR APTT D-Dimer ABG pO2 62.1 L ABG HCO3 28.3 H ABG O2 Saturation 94.3 L ABG Base Excess 3.7 H ABG Hemoglobin Oxyhemoglobin 92.7 L Sodium BUN 22 H Creatinine 0.2 L Glucose POC Glucose 123 H Lactic Acid Magnesium Ferritin ALT Lactate Dehydrogenase Total Creatine Kinase CK-MB (CK-2) CK-MB (CK-2) Rel Index Troponin T C-Reactive Protein Total Protein 5.9 L Albumin 2.7 L HDL Cholesterol Coronavirus (PCR) 02/24/22 02/25/22 02/25/22 16:23 04:34 04:34 WBC RBC Hgb Hct MCV MCH MCHC RDW Plt Count Lymph % (Auto) Lymph # (Auto) Seg Neutrophils % PT INR APTT D-Dimer 258.52 H ABG pO2 ABG HCO3 ABG O2 Saturation ABG Base Excess ABG Hemoglobin Oxyhemoglobin Sodium BUN Creatinine Glucose POC Glucose 122 H Lactic Acid Magnesium Ferritin 716.1 H ALT Lactate Dehydrogenase Total Creatine Kinase CK-MB (CK-2) CK-MB (CK-2) Rel Index Troponin T C-Reactive Protein Total Protein Albumin HDL Cholesterol Coronavirus (PCR) 02/25/22 02/25/22 02/25/22 04:34 04:34 22:44 WBC RBC Hgb 11.7 L 11.2 L Hct 34.9 L D 33.6 L MCV 78 L MCH 26 L MCHC RDW 17.0 H 16.6 H Plt Count 451 H 446 H Lymph % (Auto) 7.8 L Lymph # (Auto) 0.6 L Seg Neutrophils % 87.8 H PT INR APTT D-Dimer ABG pO2 ABG HCO3 ABG O2 Saturation ABG Base Excess ABG Hemoglobin Oxyhemoglobin Sodium BUN Creatinine 0.3 L Glucose 115 H POC Glucose Lactic Acid Magnesium Ferritin ALT Lactate Dehydrogenase 187 H Total Creatine Kinase CK-MB (CK-2) CK-MB (CK-2) Rel Index Troponin T C-Reactive Protein Total Protein 5.8 L Albumin 3.1 L HDL Cholesterol Coronavirus (PCR) 02/25/22 02/25/22 22:44 22:44 WBC RBC Hgb Hct MCV MCH MCHC RDW Plt Count Lymph % (Auto) Lymph # (Auto) Seg Neutrophils % PT 17.3 H INR 1.26 H APTT 42.0 H D-Dimer ABG pO2 ABG HCO3 ABG O2 Saturation ABG Base Excess ABG Hemoglobin Oxyhemoglobin Sodium BUN Creatinine 0.3 L Glucose POC Glucose Lactic Acid Magnesium Ferritin ALT Lactate Dehydrogenase Total Creatine Kinase CK-MB (CK-2) CK-MB (CK-2) Rel Index Troponin T C-Reactive Protein Total Protein Albumin HDL Cholesterol Coronavirus (PCR)
[2022-02-27 05:20] LABS: Hematocrit 38.2 % (35.5-45.6); Hemoglobin 11.9 gm/dl (11.8-15.2); Mean Corpuscular HGB Conc 31 % (32-34); Mean Corpuscular Volume 77 fl (84-94); Platelet Count 416 K/mm3 (140-440); Red Blood Count 4.95 M/mm3 (3.65-5.03); Red Cell Distribution Width 17.3 % (13.2-15.2)
[2022-02-27] MEDS: HEPARIN 5,000 UNIT/1 ML VIAL SUB-Q SCH ×3 (06:26→21:38)
[2022-02-27] MEDS: methylPREDNISolone Sod Succinate 125 MG/2 ML INJ IV SCH ×3 (06:26→18:50)
[2022-02-27] MEDS: BUDESONIDE 0.5 MG/2 ML NEBU IH SCH ×2 (08:45→19:51)
[2022-02-27] MEDS: ARFORMOTEROL 15 MCG/2 ML NEBU IH SCH ×2 (08:45→19:51)
[2022-02-27] MEDS: FAMOTIDINE 20 MG TAB PO SCH ×2 (10:23→21:38)
--- NOTE | 2022-02-27 11:42 | Progress Note ---
Assessment and Plan 61 y/o male with acute respiratory failure from COPD exacerbation secondary to COVID 02/27/22: Taking a long time to when. Not unexpected given his smoking history and degree of COPD and conditioning prior to arrival. Still suggest that he be evaluated for LTACH. Continue high dose steroids. I/O are negative if accurate and this is where he needs to be. Continue NIV at night. Wean For sats >88% 02/26/22: Patient had to go back on Bipap yesterday morning so transfer was held. Patient needs to wear NIV night, not for hypoxemia but given his degree of COPD and propensity for concomitant NORTH that is undiagnosed. This would bene fit patient and help with oxygen requirements so please place patient on it. If patient refuses, please document. Continue high dose steroids until off HFNC. Anxiety therapy. 02/25/22: COntinue to wean FiO2 as tolerated. Most likely will need oxygen at discharge. Continue Remdesivir and steroids. Continue PRN NIV, can change night time to PRN as well. Daily negative fluid balance. Will transfer to floor. (COVID Floor) 02/24/22: No further bradycardia, actually tachy. Remains calm and RT is weaning HFNC. Continue Remdesivir and steroids. NIV at night and PRN. Prognosis remains guarded but improving. Today is his 62 birthday 02/23/22: Had some bradycardia this am. Concern for precedex induced vs remdesivir or a combination of both. Will stop precedex and put on PRN ativan. Did will with 0.5 yesterday so will do 0.6 IV q4. Bipap PRN and QHS. Tolerating HFNC right now. 1. high dose steroids 2. Bipap PRN and QHS 3. Remdesivir 4. CRP to low for Actemra 5. Negative fluid balance daily 6. Guarded prognosis, did well with ativan PRN so will initiate precedex therapy to help prevent intubation. Long discussion with outside of room and how the mortality would increase if placed on ventilator. Expressed understanding and they will discuss more. Subjective Date of service: 02/27/22 Interval history: No acute events. Objective Vital Signs - 12hr 02/26/22 02/26/22 02/27/22 23:50 23:55 00:00 Temperature 97.2 F L Pulse Rate 56 L 58 L Pulse Rate [ Bilateral] Pulse Rate [ 58 L From Monitor] Respiratory 20 17 Rate Respiratory Rate [Bilateral ] Respiratory 20 Rate [ Generalized] Blood Pressure 116/71 O2 Sat by Pulse 98 Oximetry 02/27/22 02/27/22 02/27/22 01:00 02:00 03:00 Temperature Pulse Rate 58 L 61 59 L Pulse Rate [ Bilateral] Pulse Rate [ From Monitor] Respiratory 13 19 15 Rate Respiratory Rate [Bilateral ] Respiratory Rate [ Generalized] Blood Pressure 115/60 106/69 118/67 O2 Sat by Pulse 97 96 98 Oximetry 02/27/22 02/27/22 02/27/22 04:00 04:30 04:43 Temperature Pulse Rate 73 60 61 Pulse Rate [ Bilateral] Pulse Rate [ From Monitor] Respiratory 18 14 Rate Respiratory Rate [Bilateral ] Respiratory Rate [ Generalized] Blood Pressure 106/68 106/68 O2 Sat by Pulse 99 100 Oximetry 02/27/22 02/27/22 02/27/22 05:00 06:00 07:00 Temperature 96.6 F L Pulse Rate 59 L 77 58 L Pulse Rate [ Bilateral] Pulse Rate [ From Monitor] Respiratory 15 18 13 Rate Respiratory Rate [Bilateral ] Respiratory Rate [ Generalized] Blood Pressure 120/75 124/84 123/73 O2 Sat by Pulse 99 98 100 Oximetry 02/27/22 02/27/22 02/27/22 08:00 09:00 10:00 Temperature 97.2 F L Pulse Rate 61 86 83 Pulse Rate [ 78 Bilateral] Pulse Rate [ 61 From Monitor] Respiratory 32 H 26 H 31 H Rate Respiratory 18 Rate [Bilateral ] Respiratory Rate [ Generalized] Blood Pressure 125/77 123/83 108/64 O2 Sat by Pulse 98 97 96 Oximetry Constitutional: appears uncomfortable, other (appears older than stated age) Eyes: non-icteric ENT: other (full face mask bipap on at present) Neck: supple Effort: very labored Ascultation: Bilateral: diminished breath sounds CBC and BMP: 02/27/22 04:53 02/25/22 22:44 ABG, PT/INR, D-dimer: ABG ABG pH 7.440 pH Units (7.350-7.450) 02/24/22 15:00 ABG pCO2 42.6 mm Hg 02/24/22 15:00 ABG pO2 62.1 mm Hg (80.0-90.0) L 02/24/22 15:00 ABG O2 Saturation 94.3 % (95.0-99.0) L 02/24/22 15:00 PT/INR, D-dimer PT 17.3 Sec. (12.2-14.9) H 02/25/22 22:44 INR 1.26 (0.87-1.13) H 02/25/22 22:44 D-Dimer 258.52 ng/mlDDU (0-234) H 02/25/22 04:34 Abnormal lab findings: Abnormal Labs 02/20/22 02/20/22 02/20/22 13:33 13:33 13:33 WBC RBC Hgb Hct MCV MCH 34 H MCHC 39 H* RDW 16.8 H Plt Count Lymph % (Auto) Lymph # (Auto) Seg Neutrophils % PT 15.4 H INR APTT D-Dimer ABG pO2 ABG HCO3 ABG O2 Saturation ABG Base Excess ABG Hemoglobin Oxyhemoglobin Sodium BUN Creatinine Glucose POC Glucose Lactic Acid 3.70 H* Magnesium Ferritin ALT Lactate Dehydrogenase Total Creatine Kinase CK-MB (CK-2) CK-MB (CK-2) Rel Index Troponin T C-Reactive Protein Total Protein Albumin HDL Cholesterol Coronavirus (PCR) 02/20/22 02/20/22 02/20/22 13:39 13:39 13:39 WBC RBC Hgb Hct MCV MCH MCHC RDW Plt Count Lymph % (Auto) Lymph # (Auto) Seg Neutrophils % PT INR APTT D-Dimer ABG pO2 ABG HCO3 ABG O2 Saturation ABG Base Excess ABG Hemoglobin Oxyhemoglobin Sodium BUN Creatinine 0.3 L Glucose 139 H POC Glucose Lactic Acid Magnesium 2.60 H Ferritin ALT 5 L Lactate Dehydrogenase Total Creatine Kinase 54 L CK-MB (CK-2) 6.4 H CK-MB (CK-2) Rel Index 11.8 H Troponin T 0.141 H* C-Reactive Protein Total Protein Albumin 3.4 L HDL Cholesterol 34 L Coronavirus (PCR) 02/20/22 02/20/22 02/21/22 14:34 16:08 05:28 WBC 3.2 L RBC Hgb 11.4 L Hct 32.3 L MCV MCH MCHC 35 H RDW 16.4 H Plt Count Lymph % (Auto) Lymph # (Auto) 0.6 L Seg Neutrophils % 73.5 H PT INR APTT D-Dimer ABG pO2 195.7 H ABG HCO3 ABG O2 Saturation 99.2 H ABG Base Excess ABG Hemoglobin 12.7 L Oxyhemoglobin Sodium BUN Creatinine Glucose POC Glucose Lactic Acid 2.10 H* Magnesium Ferritin ALT Lactate Dehydrogenase Total Creatine Kinase CK-MB (CK-2) CK-MB (CK-2) Rel Index Troponin T C-Reactive Protein Total Protein Albumin HDL Cholesterol Coronavirus (PCR) 02/21/22 02/21/22 02/21/22 05:28 09:20 09:20 WBC RBC Hgb Hct MCV MCH MCHC RDW Plt Count Lymph % (Auto) Lymph # (Auto) Seg Neutrophils % PT INR APTT D-Dimer 335.95 H ABG pO2 ABG HCO3 ABG O2 Saturation ABG Base Excess ABG Hemoglobin Oxyhemoglobin Sodium 136 L BUN Creatinine 0.2 L Glucose 141 H POC Glucose Lactic Acid Magnesium Ferritin 1666.0 H ALT < 5 L Lactate Dehydrogenase Total Creatine Kinase CK-MB (CK-2) CK-MB (CK-2) Rel Index Troponin T C-Reactive Protein Total Protein Albumin 3.0 L HDL Cholesterol Coronavirus (PCR) 02/21/22 02/21/22 02/22/22 09:20 11:30 04:41 WBC RBC 3.11 L Hgb 10.3 L Hct 27.9 L MCV MCH 33 H MCHC 37 H RDW 17.1 H Plt Count Lymph % (Auto) 12.1 L Lymph # (Auto) 0.7 L Seg Neutrophils % 80.9 H PT INR APTT D-Dimer ABG pO2 ABG HCO3 ABG O2 Saturation ABG Base Excess ABG Hemoglobin Oxyhemoglobin Sodium BUN Creatinine Glucose POC Glucose Lactic Acid Magnesium Ferritin ALT Lactate Dehydrogenase Total Creatine Kinase CK-MB (CK-2) CK-MB (CK-2) Rel Index Troponin T C-Reactive Protein 6.70 H Total Protein Albumin HDL Cholesterol Coronavirus (PCR) Positive A 02/22/22 02/22/22 02/22/22 04:41 04:41 12:20 WBC RBC Hgb Hct MCV MCH MCHC RDW Plt Count Lymph % (Auto) Lymph # (Auto) Seg Neutrophils % PT INR APTT D-Dimer ABG pO2 116.2 H ABG HCO3 26.6 H ABG O2 Saturation ABG Base Excess ABG Hemoglobin 11.9 L Oxyhemoglobin Sodium BUN Creatinine 0.3 L Glucose 116 H POC Glucose Lactic Acid Magnesium Ferritin 1116.0 H ALT Lactate Dehydrogenase Total Creatine Kinase CK-MB (CK-2) CK-MB (CK-2) Rel Index Troponin T C-Reactive Protein 2.70 H Total Protein Albumin HDL Cholesterol Coronavirus (PCR) 02/23/22 02/23/22 02/23/22 04:58 04:58 04:58 WBC RBC Hgb Hct MCV MCH MCHC RDW Plt Count Lymph % (Auto) Lymph # (Auto) Seg Neutrophils % PT INR APTT D-Dimer 262.94 H ABG pO2 ABG HCO3 ABG O2 Saturation ABG Base Excess ABG Hemoglobin Oxyhemoglobin Sodium 136 L BUN 21 H Creatinine 0.3 L Glucose 104 H POC Glucose Lactic Acid Magnesium Ferritin 806.9 H ALT Lactate Dehydrogenase Total Creatine Kinase CK-MB (CK-2) CK-MB (CK-2) Rel Index Troponin T C-Reactive Protein Total Protein 5.8 L Albumin 2.8 L HDL Cholesterol Coronavirus (PCR) 02/23/22 02/23/22 02/23/22 04:58 12:23 18:32 WBC 4.3 L RBC 3.40 L Hgb 10.3 L Hct 28.7 L MCV MCH MCHC 36 H RDW 16.9 H Plt Count Lymph % (Auto) Lymph # (Auto) Seg Neutrophils % PT INR APTT D-Dimer ABG pO2 ABG HCO3 ABG O2 Saturation ABG Base Excess ABG Hemoglobin Oxyhemoglobin Sodium BUN Creatinine Glucose POC Glucose 108 H 163 H Lactic Acid Magnesium Ferritin ALT Lactate Dehydrogenase Total Creatine Kinase CK-MB (CK-2) CK-MB (CK-2) Rel Index Troponin T C-Reactive Protein Total Protein Albumin HDL Cholesterol Coronavirus (PCR) 02/24/22 02/24/22 02/24/22 04:30 11:31 15:00 WBC RBC Hgb Hct MCV MCH MCHC RDW Plt Count Lymph % (Auto) Lymph # (Auto) Seg Neutrophils % PT INR APTT D-Dimer ABG pO2 62.1 L ABG HCO3 28.3 H ABG O2 Saturation 94.3 L ABG Base Excess 3.7 H ABG Hemoglobin Oxyhemoglobin 92.7 L Sodium BUN 22 H Creatinine 0.2 L Glucose POC Glucose 123 H Lactic Acid Magnesium Ferritin ALT Lactate Dehydrogenase Total Creatine Kinase CK-MB (CK-2) CK-MB (CK-2) Rel Index Troponin T C-Reactive Protein Total Protein 5.9 L Albumin 2.7 L HDL Cholesterol Coronavirus (PCR) 02/24/22 02/25/22 02/25/22 16:23 04:34 04:34 WBC RBC Hgb Hct MCV MCH MCHC RDW Plt Count Lymph % (Auto) Lymph # (Auto) Seg Neutrophils % PT INR APTT D-Dimer 258.52 H ABG pO2 ABG HCO3 ABG O2 Saturation ABG Base Excess ABG Hemoglobin Oxyhemoglobin Sodium BUN Creatinine Glucose POC Glucose 122 H Lactic Acid Magnesium Ferritin 716.1 H ALT Lactate Dehydrogenase Total Creatine Kinase CK-MB (CK-2) CK-MB (CK-2) Rel Index Troponin T C-Reactive Protein Total Protein Albumin HDL Cholesterol Coronavirus (PCR) 02/25/22 02/25/22 02/25/22 04:34 04:34 22:44 WBC RBC Hgb 11.7 L 11.2 L Hct 34.9 L D 33.6 L MCV 78 L MCH 26 L MCHC RDW 17.0 H 16.6 H Plt Count 451 H 446 H Lymph % (Auto) 7.8 L Lymph # (Auto) 0.6 L Seg Neutrophils % 87.8 H PT INR APTT D-Dimer ABG pO2 ABG HCO3 ABG O2 Saturation ABG Base Excess ABG Hemoglobin Oxyhemoglobin Sodium BUN Creatinine 0.3 L Glucose 115 H POC Glucose Lactic Acid Magnesium Ferritin ALT Lactate Dehydrogenase 187 H Total Creatine Kinase CK-MB (CK-2) CK-MB (CK-2) Rel Index Troponin T C-Reactive Protein Total Protein 5.8 L Albumin 3.1 L HDL Cholesterol Coronavirus (PCR) 02/25/22 02/25/22 02/27/22 22:44 22:44 04:53 WBC RBC Hgb Hct MCV 77 L MCH 24 L MCHC 31 L RDW 17.3 H Plt Count Lymph % (Auto) Lymph # (Auto) Seg Neutrophils % PT 17.3 H INR 1.26 H APTT 42.0 H D-Dimer ABG pO2 ABG HCO3 ABG O2 Saturation ABG Base Excess ABG Hemoglobin Oxyhemoglobin Sodium BUN Creatinine 0.3 L Glucose POC Glucose Lactic Acid Magnesium Ferritin ALT Lactate Dehydrogenase Total Creatine Kinase CK-MB (CK-2) CK-MB (CK-2) Rel Index Troponin T C-Reactive Protein Total Protein Albumin HDL Cholesterol Coronavirus (PCR)
--- NOTE | 2022-02-27 11:52 | Progress Note ---
Assessment and Plan Assessment and plan: This is a 61-year-old male with current nicotine abuse, HTN and COPD who presented to emergency department on 02/20 with shortness of breath over the past 2 to 3 days, cough with sputum production and increasing shortness of breath not responding to inhalers or nebulizer treatments. In the emergency department patient was tachycardic and tachypneic and SPO2 was in the 70s on room air. Patient was given albuterol, magnesium, and remdesivir by EMS on arrival. Recommend the emergency department. CXR wet read with right lower lobe pneumonia. Patient was admitted to the hospitalist service with acute hypoxic respiratory failure, right lower lobe pneumonia and COPD exacerbation with consult to pulmonology. Hospital course to date: 02/21: No acute events overnight, COVID-19 PCR positive, infectious disease consulted started on remdesivir 02/22: Patient transferred to [facility], currently on CPAP with increased work of breathing. Given 1 dose of Ativan which helped work of breathing and heart rate decreased. 02/23: Patient was on continuous BiPAP all night, this morning patient weaned to high flow nasal cannula with RT. Noted bradycardia overnight and patient is on remdesivir therefore Precedex will be stopped and as needed Ativan will be ordered. Patient states that he feels much better and instructed to self prone as tolerated. 02/24: Improved respirations. Vitals improved, no longer bradycardic as patient off of precedex. prn ativan for anxiety however counseled on how to deal with "panic attacks". Currently on HiFlo NC, RT will attempt to de-escalate to salter NC. continue with bipap qhs/prn. Continued therapy for covid 19 viral infection with solumedrol and remdesivir. Pulmonary and ID recommendations reviewed. Continue [facility] level of care at this time, prognosis remains guarded. 02/25: Patient seen and examined today. Continues off Precedex. Continues on BiPAP and high flow and intermittently. Discussed with warehouse person patient to be transferred to the medical floor and continue weaning oxygen as tolerated. Mildly elevated D-dimer considering COVID diagnosis with empirically treat with full dose anticoagulation. Recommend proning as tolerated. Home O2 evaluation prior to discharge 02/26: Patient still hypoxic respiratory failure secondary to COVID-19 continue current management. He continues on steroids for 10 days, and has completed Remdesivir. We will continue to wean oxygen as tolerated. If continues to wean down on liters flow and FiO2 will likely transfer to the medical floor in a.m. Encourage proning as tolerated. 02/27: Continue current management wean as tolerated from oxygen. Prone position if tolerated. Continue steroids. Patient still on high flow nasal cannula. Hopefully transition soon to normal nasal cannula and home O2 evaluation prior to discharge Assessment and plan: This is a 61-year-old male with current nicotine abuse, HTN and COPD admitted with COPD exacerbation secondary to COVID-19 infection Neuro: Generalized anxiety disorder -As needed Ativan IV -S/p Precedex drip, now d/c -Reorientation as needed -Maintain sleep-wake cycle -As needed analgesia Cardiac: SB, h/o hypertension -Cardiology consulted, appreciate recommendations -Blood pressure monitoring per protocol -Hold home antihypertension regimen Respiratory: Acute hypoxemic respiratory failure, COPD exacerbation, h/o COPD, current nicotine abuse -Pulmonology consulted, appreciate recommendations -s/p Ventimask -BiPAP as needed -Wean to hyponasal cannula -SPO2 monitor per protocol -Supplemental oxygen as needed -Pulmonary hygiene -Albuterol, Pulmicort, Brovana GI: Moderate protein calorie malnutrition -24 hours -215 ml -Regular diet -Nutrition supplementation : NAD -Monitor intake and output -Renally dose medications -Avoid nephrotoxic medications -Trend BMP ID: COVID 19 infection -Infectious disease consulted, appreciate recommendation -COVID-19 PCR positive -Solu-Medrol 60 mg every 6 hours -Antibiotic discontinued -Remdesivir for 5 days (02/21-02/26) -Contact/droplet precautions -f/u blood culture -Monitor WBC and temperature curve -Trend COVID-19 inflammatory markers -Anticoagulation per protocol Endo: NAD -Avoid hypoglycemia Heme: Leukopenia (resolved) -Trend CBC -Transfuse hemoglobin less than 7 -SCDs to BLE while in bed History Interval history: Patient seen and examined resting comfortably remains on high flow nasal can nula. Down to 10 L 35% FiO2 Hospitalist Physical - Physical exam Narrative exam: - Physical exam Narrative exam: General appearance: Present: mild distress, cachectic, continues on high flow nasal cannula - EENT Eyes: Present: PERRL, EOM intact ENT: clear oral mucosa, dentition normal - Neck Neck: Present: normal ROM - Respiratory Respiratory effort: normal Respiratory: bilateral: diminished - Cardiovascular Rhythm: regular Heart Sounds: Present: S1 & S2. Absent: systolic murmur, diastolic murmur - Extremities Extremities: no ischemia, pulses intact, pulses symmetrical, No edema, normal temperature, normal color, Full ROM Peripheral Pulses: within normal limits - Abdominal General gastrointestinal: soft, non-tender, non-distended, normal bowel sounds - Integumentary Integumentary: Present: warm, dry - Psychiatric Psychiatric: cooperative - Neurologic Neurologic: CNII-XII intact, no focal deficits, moves all extremities - Allied Health Allied health notes reviewed: nursing, RT - Constitutional Vitals: Temp Pulse Resp BP Pulse Ox 97.2 F L 83 31 H 108/64 96 02/27/22 08:00 02/27/22 10:00 02/27/22 10:00 02/27/22 10:00 02/27/22 10:00 General appearance: Present: mild distress, cachectic HEART Score - HEART Score Troponin: Troponin T TNR 02/20/22 14:34 Results - Labs CBC & Chem 7: 02/27/22 04:53 02/25/22 22:44 Labs: Laboratory Last Values WBC 8.6 K/mm3 (4.5-11.0) 02/27/22 04:53 RBC 4.95 M/mm3 (3.65-5.03) 02/27/22 04:53 Hgb 11.9 gm/dl (11.8-15.2) 02/27/22 04:53 Hct 38.2 % (35.5-45.6) 02/27/22 04:53 MCV 77 fl (84-94) L 02/27/22 04:53 MCH 24 pg (28-32) L 02/27/22 04:53 MCHC 31 % (32-34) L 02/27/22 04:53 RDW 17.3 % (13.2-15.2) H 02/27/22 04:53 Plt Count 416 K/mm3 (140-440) 02/27/22 04:53 Lymph % (Auto) 7.8 % (13.4-35.0) L 02/25/22 04:34 Rankin % (Auto) 3.8 % (0.0-7.3) 02/25/22 04:34 Eos % (Auto) 0.4 % (0.0-4.3) 02/25/22 04:34 Baso % (Auto) 0.2 % (0.0-1.8) 02/25/22 04:34 Lymph # (Auto) 0.6 K/mm3 (1.2-5.4) L 02/25/22 04:34 Rankin # (Auto) 0.3 K/mm3 (0.0-0.8) 02/25/22 04:34 Eos # (Auto) 0.0 K/mm3 (0.0-0.4) 02/25/22 04:34 Baso # (Auto) 0.0 K/mm3 (0.0-0.1) 02/25/22 04:34 Seg Neutrophils % 87.8 % (40.0-70.0) H 02/25/22 04:34 Seg Neutrophils # 6.2 K/mm3 (1.8-7.7) 02/25/22 04:34 PT 17.3 Sec. (12.2-14.9) H 02/25/22 22:44 INR 1.26 (0.87-1.13) H 02/25/22 22:44 APTT 42.0 Sec. (24.2-36.6) H 02/25/22 22:44 D-Dimer 258.52 ng/mlDDU (0-234) H 02/25/22 04:34 ABG pH 7.440 pH Units (7.350-7.450) 02/24/22 15:00 ABG pCO2 42.6 mm Hg 02/24/22 15:00 ABG pO2 62.1 mm Hg (80.0-90.0) L 02/24/22 15:00 ABG HCO3 28.3 mmol/L (20.0-26.0) H 02/24/22 15:00 ABG O2 Saturation 94.3 % (95.0-99.0) L 02/24/22 15:00 ABG O2 Content 18.6 (0.0-44) 02/24/22 15:00 ABG Base Excess 3.7 mmol/L (-2.0-3.0) H 02/24/22 15:00 ABG Hemoglobin 14.3 gm/dl (14.0-18.0) 02/24/22 15:00 ABG Carboxyhemoglobin 1.2 % (0.0-5.0) 02/24/22 15:00 ABG Methemoglobin 0.5 % (0.0-1.5) 02/24/22 15:00 Oxyhemoglobin 92.7 % (95.0-99.0) L 02/24/22 15:00 FiO2 30 % 02/24/22 15:00 Sodium 139 mmol/L (137-145) 02/25/22 04:34 Potassium 3.7 mmol/L (3.6-5.0) 02/25/22 04:34 Chloride 99.8 mmol/L (98-107) 02/25/22 04:34 Carbon Dioxide 30 mmol/L (22-30) 02/25/22 04:34 Anion Gap 13 mmol/L 02/25/22 04:34 BUN 15 mg/dL (9-20) 02/25/22 04:34 Creatinine 0.3 mg/dL (0.8-1.3) L 02/25/22 22:44 Estimated GFR > 60 ml/min 02/25/22 22:44 BUN/Creatinine Ratio 50 % 02/25/22 04:34 Glucose 115 mg/dL (75-100) H 02/25/22 04:34 POC Glucose 122 mg/dL (70-105) H 02/24/22 16:23 Lactic Acid 2.10 mmol/L (0.7-2.0) H* 02/20/22 14:34 Calcium 8.5 mg/dL (8.4-10.2) 02/25/22 04:34 Magnesium TNR 02/20/22 14:34 Ferritin 716.1 ng/mL (30.0-300.0) H 02/25/22 04:34 Total Bilirubin 0.40 mg/dL (0.1-1.2) 02/25/22 04:34 AST 12 units/L (5-40) 02/25/22 04:34 ALT 11 units/L (7-56) 02/25/22 04:34 Alkaline Phosphatase 77 units/L (35-129) 02/25/22 04:34 Lactate Dehydrogenase 187 units/L (91-180) H 02/25/22 04:34 Total Creatine Kinase TNR 02/20/22 14:34 CK-MB (CK-2) TNR 02/20/22 14:34 CK-MB (CK-2) Rel Index TNR 02/20/22 14:34 Troponin T TNR 02/20/22 14:34 C-Reactive Protein 0.60 mg/dL (0.00-1.30) 02/25/22 04:34 NT-Pro-B Natriuret Pep 146.4 pg/mL (0-900) 02/20/22 13:39 Total Protein 5.8 g/dL (6.3-8.2) L 02/25/22 04:34 Albumin 3.1 g/dL (3.9-5) L 02/25/22 04:34 Albumin/Globulin Ratio 1.1 % 02/25/22 04:34 Triglycerides 140 mg/dL (2-149) 02/20/22 13:39 Cholesterol 154 mg/dL (50-199) 02/20/22 13:39 LDL Cholesterol Direct 90 mg/dL (50-130) 02/20/22 13:39 HDL Cholesterol 34 mg/dL (40-59) L 02/20/22 13:39 Cholesterol/HDL Ratio 4.52 % 02/20/22 13:39 Lipase TNR 02/20/22 14:34 Urine Color Yellow (Yellow) 02/20/22 18:53 Urine Turbidity Cloudy (Clear) 02/20/22 18:53 Specific [place] (Man) 1.020 (1.003-1.030) 02/20/22 18:53 Ur Protein (Man) 1+ mg/dL (Negative) 02/20/22 18:53 Ur Ketones (Man) Negative (Negative) 02/20/22 18:53 Ur Nitrite (Man) Negative (Negative) 02/20/22 18:53 Ur Reducing Substances Not Reportable 02/20/22 18:53 Urine Bilirubin (Man) Negative (Negative) 02/20/22 18:53 Leukocyte Esterase (Man) Negative (Negative) 02/20/22 18:53 Urine WBC (Auto) 3.0 /HPF (0.0-6.0) 02/20/22 18:53 Urine RBC (Auto) 1.0 /HPF (0.0-6.0) 02/20/22 18:53 Urine RBC (Manual) Negative (Negative) 02/20/22 18:53 Urine Mucus 1+ /HPF 02/20/22 18:53 Nasal Screen MRSA (PCR) Negative (Negative) 02/22/22 Unknown Urine Opiates Screen Negative 02/20/22 18:53 Urine Methadone Screen Negative 02/20/22 18:53 Ur Barbiturates Screen Negative 02/20/22 18:53 Ur Phencyclidine Scrn Negative 02/20/22 18:53 Ur Amphetamines Screen Negative 02/20/22 18:53 U Benzodiazepines Scrn Negative 02/20/22 18:53 Urine Cocaine Screen Negative 02/20/22 18:53 U Marijuana (THC) Screen Negative 02/20/22 18:53 Drugs of Abuse Note Disclamer 02/20/22 18:53 Coronavirus (PCR) Positive (Negative) A 02/21/22 11:30 Linder/IV: Voiding Method Urinal Active Medications - Current Medications Current Medications: Generic Name Dose Route Start Last Admin Trade Name Freq PRN Reason Stop Dose Admin Acetaminophen 650 mg 02/20/22 17:46 02/24/22 00:03 Acetaminophen 325 Mg Tab PO 650 mg Q4H PRN Administration Pain MILD(1-3)/Fever >100.5/SALEEM Albuterol 2.5 mg 02/21/22 12:00 Albuterol 2.5 Mg/3 Ml Nebu IH Q4HRT PRN Shortness Of Breath Arformoterol Tartrate 15 mcg 02/21/22 20:00 02/27/22 08:45 Arformoterol 15 Mcg/2 Ml Nebu IH 15 mcg Q12HRT LIONEL Administration Budesonide 0.5 mg 02/21/22 20:00 02/27/22 08:45 Budesonide 0.5 Mg/2 Ml Nebu IH 0.5 mg Q12HRT LIONEL Administration Famotidine 20 mg 02/20/22 22:00 02/27/22 10:23 Famotidine 20 Mg Tab PO 20 mg BID LIONEL Administration Heparin Sodium (Porcine) 5,000 unit 02/25/22 16:00 02/27/22 06:26 Heparin 5,000 Unit/1 Ml Vial SUB-Q 5,000 unit Q8HR LIONEL Administration Lorazepam 0.5 mg 02/23/22 12:53 02/24/22 20:20 Lorazepam 2 Mg/Ml Vial IV 0.5 mg Q4H PRN Administration Anxiety Methylprednisolone Sodium Succinate 60 mg 02/22/22 00:00 02/27/22 06:26 Methylprednisolone Sod Succinate 125 Mg/2 Ml Inj IV 60 mg Q6HR LIONEL Administration Metoclopramide HCl 10 mg 02/20/22 17:46 Metoclopramide 10 Mg/2 Ml Inj IV Q6H PRN Nausea And Vomiting Ondansetron HCl 4 mg 02/20/22 17:46 Ondansetron 4 Mg/2 Ml Inj IV Q8H PRN Nausea And Vomiting Oxycodone/Acetaminophen 1 tab 02/20/22 17:46 02/26/22 22:55 Oxycodone /Acetaminophen 5-325mg Tab PO 1 tab Q6H PRN Administration Pain, Moderate (4-6) Sodium Chloride 10 ml 02/20/22 22:00 02/27/22 10:23 Sodium Chloride 0.9% 10 Ml Flush Syringe IV 10 ml BID LIONEL Administration Sodium Chloride 10 ml 02/20/22 17:46 Sodium Chloride 0.9% 10 Ml Flush Syringe IV PRN PRN LINE FLUSH Nutrition/Malnutrition Assess - Dietary Evaluation Nutrition/Malnutrition Findings: Nutrition Notes Start: 02/21/22 14:17 Freq: Status: Active Protocol: Document 02/24/22 16:30 ALLA (Rec: 02/24/22 16:33 [facility] [id number]) Nutrition Notes Initial or Follow up Reassessment Current Diagnosis COPD,Hypertension,Respiratory Failure Other Pertinent Diagnosis RLL pneu, COPD exacerbation, COVID-19 (+) Current Diet Regular + Ensure Enlive TID Labs/Tests Reviewed Pertinent Medications Reviewed Height 5 ft 5 in Weight 35.6 kg [place] Body Weight (kg) 61.81 BMI 13.0 Weight Status Underweight Subjective/Other Information Per records, pt consumed 83% meals yesterday. Pt on HFNC during the day and BiPap support at night. Percent of energy/protein needs met: 100% energy and pro (does not include ONS) Burn Absent Trauma Absent #1 Nutrition Diagnosis Malnutrition Diagnosis Progress(for reassessment Continues documentation) Is patient on ventilator? No Is Patient Ambulatory and/or Out of Bed Yes REE-([place] or-ambulatory/OOB) [ 1401.244 [id number]] Kcal/Kg value to use for calculation 50 Approximate Energy Requirements Using 1780 kcal/Kg Calculation Used for Recommendations Kcal/kg Additional Notes Pro needs 1.2-1.5g/k-53g/ day Fluid needs 1ml/kcal Nutrition Intervention Change Diet Order: Continue current diet order Add Supplement/Snack (indicate name/kcal Ensure High Protein TID ( /protein ) Ensure Enlive not in stock until February 2022) Provides kCal: 480 Provides Protein (gm) 48 Goal #1 PO intake of meals plus ONS to meet 100% of energy and pro needs Goal #2 Wt maintenance and/or gain Follow-Up By: 02/28/22 Additional Comments F/U: intakes (meals/ONS), wt, resp status
--- NOTE | 2022-02-27 12:47 | Progress Note ---
Assessment and Plan Cultures: Blood culture no growth COVID-19 PCR positive A/P: 61-year-old man past medical history COPD, nicotine abuse now with: #Severe COVID-19 pneumonia, acute hypoxemic respiratory failure: Likely secondary to COVID-19 infection. Requiring BiPAP/HFNC. #COPD #Leukopenia: Secondary to COVID-19 Recommendations: -Continue steroids per pulm/ICU -completed Remdesivir -continue oxygen weaning as tolerated Will sign off. Priyanka Schultz MD, FACP, [facility] O: [phone] F: [phone] C: [phone] Subjective Date of service: 02/27/22 Interval history: Afebrile. Remains on HFNC. Objective - Exam Narrative Exam: Physical Exam: Constitutional: Alert, cooperative. No acute distress Head, Ears, Nose: Normocephalic, atraumatic. External ears, nose normal Eyes: Conjunctivae/corneas clear. No icterus. No ptosis. Neck: Supple, no meningeal signs Cardiovascular: S1, S2 + Respiratory: Good air entry, clear to auscultation bilaterally GI: Soft, non-tender; bowel sounds normal. No peritoneal signs Musculoskeletal: No pedal edema, no cyanosis. Skin: No rash or abscess Hem/Lymphatic: No palpable cervical or supraclavicular nodes. No lymphangitis Psych: Mood ok. Affect normal Neurological: Awake, alert, oriented. No gross abnormality - Constitutional Vitals: Vital Signs Temp Pulse Resp BP Pulse Ox 97.2 F L 83 31 H 108/64 96 02/27/22 08:00 02/27/22 10:00 02/27/22 10:00 02/27/22 10:00 02/27/22 10:00 Temperature -Last 24 Hours Temperature 97.2 F Temperature 96.6 F Temperature 97.2 F Temperature 98.2 F Temperature 98 F - Labs CBC & Chem 7: 02/27/22 04:53 02/25/22 22:44 Labs: Abnormal lab results 02/27/22 Range/Units 04:53 MCV 77 L (84-94) fl MCH 24 L (28-32) pg MCHC 31 L (32-34) % RDW 17.3 H (13.2-15.2) %
[2022-02-28] MEDS: ARFORMOTEROL 15 MCG/2 ML NEBU IH SCH ×2 (07:47→20:45)
[2022-02-28] MEDS: BUDESONIDE 0.5 MG/2 ML NEBU IH SCH ×2 (07:47→20:45)
[2022-02-28] MEDS: FAMOTIDINE 20 MG TAB PO SCH ×2 (09:49→21:46)
[2022-02-28] MEDS: methylPREDNISolone Sod Succinate 125 MG/2 ML INJ IV SCH (12:16)
--- NOTE | 2022-02-28 14:37 | Progress Note ---
Assessment and Plan 61 y/o male with acute respiratory failure from COPD exacerbation secondary to COVID 02/28/22: [facility] Continue to wean FiO2 and Flow for sats 88%. Continue high dose steroids until back on nasal cannula. Incentive darell. Daily net negative state. Continue NIV therapy at night. 02/27/22: Taking a long time to wean. Not unexpected given his smoking history and degree of COPD and conditioning prior to arrival. Still suggest that he be evaluated for LTACH. Continue high dose steroids. I/O are negative if accurate and this is where he needs to be. Continue NIV at night. Wean For sats >88% 02/26/22: Patient had to go back on Bipap yesterday morning so transfer was held. Patient needs to wear NIV night, not for hypoxemia but given his degree of COPD and propensity for concomitant NORTH that is undiagnosed. This would benefit patient and help with oxygen requirements so please place patient on it. If patient refuses, please document. Continue high dose steroids until off HFNC. Anxiety therapy. 02/25/22: COntinue to wean FiO2 as tolerated. Most likely will need oxygen at discharge. Continue Remdesivir and steroids. Continue PRN NIV, can change night time to PRN as well. Daily negative fluid balance. Will transfer to floor. (COVID Floor) 02/24/22: No further bradycardia, actually tachy. Remains calm and RT is weaning HFNC. Continue Remdesivir and steroids. NIV at night and PRN. Progn osis remains guarded but improving. Today is his 62 birthday 02/23/22: Had some bradycardia this am. Concern for precedex induced vs remdesivir or a combination of both. Will stop precedex and put on PRN ativan. Did will with 0.5 yesterday so will do 0.6 IV q4. Bipap PRN and QHS. Tolerating HFNC right now. 1. high dose steroids 2. Bipap PRN and QHS 3. Remdesivir 4. CRP to low for Actemra 5. Negative fluid balance daily 6. Guarded prognosis, did well with ativan PRN so will initiate precedex therapy to help prevent intubation. Long discussion with outside of room and how the mortality would increase if placed on ventilator. Expressed understanding and they will discuss more. Subjective Date of service: 02/28/22 Interval history: No acute events. Still on HFNC. [facility] Objective Vital Signs - 12hr 02/28/22 02/28/22 02/28/22 03:00 03:42 04:00 Temperature 97.8 F Pulse Rate 56 L 62 Pulse Rate [ 98 H From Monitor] Respiratory 17 32 H Rate Blood Pressure 118/72 O2 Sat by Pulse 100 98 Oximetry 02/28/22 02/28/22 02/28/22 04:01 05:00 05:10 Temperature Pulse Rate 78 57 L 64 Pulse Rate [ From Monitor] Respiratory 17 24 20 Rate Blood Pressure 105/73 99/66 99/66 O2 Sat by Pulse 100 100 99 Oximetry 02/28/22 02/28/22 02/28/22 06:00 07:00 07:30 Temperature 98 F Pulse Rate 55 L 63 Pulse Rate [ From Monitor] Respiratory 13 19 Rate Blood Pressure 107/59 110/67 O2 Sat by Pulse 98 100 Oximetry 02/28/22 02/28/22 02/28/22 08:00 09:00 10:00 Temperature Pulse Rate 61 78 74 Pulse Rate [ 98 H From Monitor] Respiratory 32 H 20 26 H Rate Blood Pressure 119/64 125/69 115/59 O2 Sat by Pulse 100 98 98 Oximetry 02/28/22 02/28/22 02/28/22 11:00 12:00 13:00 Temperature 98 F Pulse Rate 71 93 H 88 Pulse Rate [ 98 H From Monitor] Respiratory 26 H 23 30 H Rate Blood Pressure 100/60 125/73 125/73 O2 Sat by Pulse 99 99 Oximetry 02/28/22 14:00 Temperature Pulse Rate 85 Pulse Rate [ From Monitor] Respiratory 31 H Rate Blood Pressure 113/65 O2 Sat by Pulse 90 Oximetry Constitutional: appears uncomfortable, other (appears older than stated age) Eyes: non-icteric ENT: other (full face mask bipap on at present) Neck: supple Effort: very labored Ascultation: Bilateral: diminished breath sounds CBC and BMP: 02/27/22 04:53 02/28/22 04:24 ABG, PT/INR, D-dimer: ABG ABG pH 7.440 pH Units (7.350-7.450) 02/24/22 15:00 ABG pCO2 42.6 mm Hg 02/24/22 15:00 ABG pO2 62.1 mm Hg (80.0-90.0) L 02/24/22 15:00 ABG O2 Saturation 94.3 % (95.0-99.0) L 02/24/22 15:00 PT/INR, D-dimer PT 17.3 Sec. (12.2-14.9) H 02/25/22 22:44 INR 1.26 (0.87-1.13) H 02/25/22 22:44 D-Dimer 258.52 ng/mlDDU (0-234) H 02/25/22 04:34 Abnormal lab findings: Abnormal Labs 02/20/22 02/20/22 02/20/22 13:33 13:33 13:33 WBC RBC Hgb Hct MCV MCH 34 H MCHC 39 H* RDW 16.8 H Plt Count Lymph % (Auto) Lymph # (Auto) Seg Neutrophils % PT 15.4 H INR APTT D-Dimer ABG pO2 ABG HCO3 ABG O2 Saturation ABG Base Excess ABG Hemoglobin Oxyhemoglobin Sodium BUN Creatinine Glucose POC Glucose Lactic Acid 3.70 H* Magnesium Ferritin ALT Lactate Dehydrogenase Total Creatine Kinase CK-MB (CK-2) CK-MB (CK-2) Rel Index Troponin T C-Reactive Protein Total Protein Albumin HDL Cholesterol Coronavirus (PCR) 02/20/22 02/20/22 02/20/22 13:39 13:39 13:39 WBC RBC Hgb Hct MCV MCH MCHC RDW Plt Count Lymph % (Auto) Lymph # (Auto) Seg Neutrophils % PT INR APTT D-Dimer ABG pO2 ABG HCO3 ABG O2 Saturation ABG Base Excess ABG Hemoglobin Oxyhemoglobin Sodium BUN Creatinine 0.3 L Glucose 139 H POC Glucose Lactic Acid Magnesium 2.60 H Ferritin ALT 5 L Lactate Dehydrogenase Total Creatine Kinase 54 L CK-MB (CK-2) 6.4 H CK-MB (CK-2) Rel Index 11.8 H Troponin T 0.141 H* C-Reactive Protein Total Protein Albumin 3.4 L HDL Cholesterol 34 L Coronavirus (PCR) 02/20/22 02/20/22 02/21/22 14:34 16:08 05:28 WBC 3.2 L RBC Hgb 11.4 L Hct 32.3 L MCV MCH MCHC 35 H RDW 16.4 H Plt Count Lymph % (Auto) Lymph # (Auto) 0.6 L Seg Neutrophils % 73.5 H PT INR APTT D-Dimer ABG pO2 195.7 H ABG HCO3 ABG O2 Saturation 99.2 H ABG Base Excess ABG Hemoglobin 12.7 L Oxyhemoglobin Sodium BUN Creatinine Glucose POC Glucose Lactic Acid 2.10 H* Magnesium Ferritin ALT Lactate Dehydrogenase Total Creatine Kinase CK-MB (CK-2) CK-MB (CK-2) Rel Index Troponin T C-Reactive Protein Total Protein Albumin HDL Cholesterol Coronavirus (PCR) 02/21/22 02/21/22 02/21/22 05:28 09:20 09:20 WBC RBC Hgb Hct MCV MCH MCHC RDW Plt Count Lymph % (Auto) Lymph # (Auto) Seg Neutrophils % PT INR APTT D-Dimer 335.95 H ABG pO2 ABG HCO3 ABG O2 Saturation ABG Base Excess ABG Hemoglobin Oxyhemoglobin Sodium 136 L BUN Creatinine 0.2 L Glucose 141 H POC Glucose Lactic Acid Magnesium Ferritin 1666.0 H ALT < 5 L Lactate Dehydrogenase Total Creatine Kinase CK-MB (CK-2) CK-MB (CK-2) Rel Index Troponin T C-Reactive Protein Total Protein Albumin 3.0 L HDL Cholesterol Coronavirus (PCR) 02/21/22 02/21/22 02/22/22 09:20 11:30 04:41 WBC RBC 3.11 L Hgb 10.3 L Hct 27.9 L MCV MCH 33 H MCHC 37 H RDW 17.1 H Plt Count Lymph % (Auto) 12.1 L Lymph # (Auto) 0.7 L Seg Neutrophils % 80.9 H PT INR APTT D-Dimer ABG pO2 ABG HCO3 ABG O2 Saturation ABG Base Excess ABG Hemoglobin Oxyhemoglobin Sodium BUN Creatinine Glucose POC Glucose Lactic Acid Magnesium Ferritin ALT Lactate Dehydrogenase Total Creatine Kinase CK-MB (CK-2) CK-MB (CK-2) Rel Index Troponin T C-Reactive Protein 6.70 H Total Protein Albumin HDL Cholesterol Coronavirus (PCR) Positive A 02/22/22 02/22/22 02/22/22 04:41 04:41 12:20 WBC RBC Hgb Hct MCV MCH MCHC RDW Plt Count Lymph % (Auto) Lymph # (Auto) Seg Neutrophils % PT INR APTT D-Dimer ABG pO2 116.2 H ABG HCO3 26.6 H ABG O2 Saturation ABG Base Excess ABG Hemoglobin 11.9 L Oxyhemoglobin Sodium BUN Creatinine 0.3 L Glucose 116 H POC Glucose Lactic Acid Magnesium Ferritin 1116.0 H ALT Lactate Dehydrogenase Total Creatine Kinase CK-MB (CK-2) CK-MB (CK-2) Rel Index Troponin T C-Reactive Protein 2.70 H Total Protein Albumin HDL Cholesterol Coronavirus (PCR) 02/23/22 02/23/22 02/23/22 04:58 04:58 04:58 WBC RBC Hgb Hct MCV MCH MCHC RDW Plt Count Lymph % (Auto) Lymph # (Auto) Seg Neutrophils % PT INR APTT D-Dimer 262.94 H ABG pO2 ABG HCO3 ABG O2 Saturation ABG Base Excess ABG Hemoglobin Oxyhemoglobin Sodium 136 L BUN 21 H Creatinine 0.3 L Glucose 104 H POC Glucose Lactic Acid Magnesium Ferritin 806.9 H ALT Lactate Dehydrogenase Total Creatine Kinase CK-MB (CK-2) CK-MB (CK-2) Rel Index Troponin T C-Reactive Protein Total Protein 5.8 L Albumin 2.8 L HDL Cholesterol Coronavirus (PCR) 02/23/22 02/23/22 02/23/22 04:58 12:23 18:32 WBC 4.3 L RBC 3.40 L Hgb 10.3 L Hct 28.7 L MCV MCH MCHC 36 H RDW 16.9 H Plt Count Lymph % (Auto) Lymph # (Auto) Seg Neutrophils % PT INR APTT D-Dimer ABG pO2 ABG HCO3 ABG O2 Saturation ABG Base Excess ABG Hemoglobin Oxyhemoglobin Sodium BUN Creatinine Glucose POC Glucose 108 H 163 H Lactic Acid Magnesium Ferritin ALT Lactate Dehydrogenase Total Creatine Kinase CK-MB (CK-2) CK-MB (CK-2) Rel Index Troponin T C-Reactive Protein Total Protein Albumin HDL Cholesterol Coronavirus (PCR) 02/24/22 02/24/22 02/24/22 04:30 11:31 15:00 WBC RBC Hgb Hct MCV MCH MCHC RDW Plt Count Lymph % (Auto) Lymph # (Auto) Seg Neutrophils % PT INR APTT D-Dimer ABG pO2 62.1 L ABG HCO3 28.3 H ABG O2 Saturation 94.3 L ABG Base Excess 3.7 H ABG Hemoglobin Oxyhemoglobin 92.7 L Sodium BUN 22 H Creatinine 0.2 L Glucose POC Glucose 123 H Lactic Acid Magnesium Ferritin ALT Lactate Dehydrogenase Total Creatine Kinase CK-MB (CK-2) CK-MB (CK-2) Rel Index Troponin T C-Reactive Protein Total Protein 5.9 L Albumin 2.7 L HDL Cholesterol Coronavirus (PCR) 02/24/22 02/25/22 02/25/22 16:23 04:34 04:34 WBC RBC Hgb Hct MCV MCH MCHC RDW Plt Count Lymph % (Auto) Lymph # (Auto) Seg Neutrophils % PT INR APTT D-Dimer 258.52 H ABG pO2 ABG HCO3 ABG O2 Saturation ABG Base Excess ABG Hemoglobin Oxyhemoglobin Sodium BUN Creatinine Glucose POC Glucose 122 H Lactic Acid Magnesium Ferritin 716.1 H ALT Lactate Dehydrogenase Total Creatine Kinase CK-MB (CK-2) CK-MB (CK-2) Rel Index Troponin T C-Reactive Protein Total Protein Albumin HDL Cholesterol Coronavirus (PCR) 02/25/22 02/25/22 02/25/22 04:34 04:34 22:44 WBC RBC Hgb 11.7 L 11.2 L Hct 34.9 L D 33.6 L MCV 78 L MCH 26 L MCHC RDW 17.0 H 16.6 H Plt Count 451 H 446 H Lymph % (Auto) 7.8 L Lymph # (Auto) 0.6 L Seg Neutrophils % 87.8 H PT INR APTT D-Dimer ABG pO2 ABG HCO3 ABG O2 Saturation ABG Base Excess ABG Hemoglobin Oxyhemoglobin Sodium BUN Creatinine 0.3 L Glucose 115 H POC Glucose Lactic Acid Magnesium Ferritin ALT Lactate Dehydrogenase 187 H Total Creatine Kinase CK-MB (CK-2) CK-MB (CK-2) Rel Index Troponin T C-Reactive Protein Total Protein 5.8 L Albumin 3.1 L HDL Cholesterol Coronavirus (PCR) 02/25/22 02/25/22 02/27/22 22:44 22:44 04:53 WBC RBC Hgb Hct MCV 77 L MCH 24 L MCHC 31 L RDW 17.3 H Plt Count Lymph % (Auto) Lymph # (Auto) Seg Neutrophils % PT 17.3 H INR 1.26 H APTT 42.0 H D-Dimer ABG pO2 ABG HCO3 ABG O2 Saturation ABG Base Excess ABG Hemoglobin Oxyhemoglobin Sodium BUN Creatinine 0.3 L Glucose POC Glucose Lactic Acid Magnesium Ferritin ALT Lactate Dehydrogenase Total Creatine Kinase CK-MB (CK-2) CK-MB (CK-2) Rel Index Troponin T C-Reactive Protein Total Protein Albumin HDL Cholesterol Coronavirus (PCR) 02/28/22 04:24 WBC RBC Hgb Hct MCV MCH MCHC RDW Plt Count Lymph % (Auto) Lymph # (Auto) Seg Neutrophils % PT INR APTT D-Dimer ABG pO2 ABG HCO3 ABG O2 Saturation ABG Base Excess ABG Hemoglobin Oxyhemoglobin Sodium BUN Creatinine 0.3 L Glucose POC Glucose Lactic Acid Magnesium Ferritin ALT Lactate Dehydrogenase Total Creatine Kinase CK-MB (CK-2) CK-MB (CK-2) Rel Index Troponin T C-Reactive Protein Total Protein Albumin HDL Cholesterol Coronavirus (PCR)
--- NOTE | 2022-02-28 15:40 | Progress Note ---
Assessment and Plan Assessment and plan: This is a 61-year-old male with current nicotine abuse, HTN and COPD who presented to emergency department on 02/20 with shortness of breath over the past 2 to 3 days, cough with sputum production and increasing shortness of breath not responding to inhalers or nebulizer treatments. In the emergency department patient was tachycardic and tachypneic and SPO2 was in the 70s on room air. Patient was given albuterol, magnesium, and remdesivir by EMS on arrival. Recommend the emergency department. CXR wet read with right lower lobe pneumonia. Patient was admitted to the hospitalist service with acute hypoxic respiratory failure, right lower lobe pneumonia and COPD exacerbation with consult to pulmonology. Hospital course to date: 02/21: No acute events overnight, COVID-19 PCR positive, infectious disease consulted started on remdesivir 02/22: Patient transferred to [facility], currently on CPAP with increased work of breathing. Given 1 dose of Ativan which helped work of breathing and heart rate decreased. 02/23: Patient was on continuous BiPAP all night, this morning patient weaned to high flow nasal cannula with RT. Noted bradycardia overnight and patient is on remdesivir therefore Precedex will be stopped and as needed Ativan will be ordered. Patient states that he feels much better and instructed to self prone as tolerated. 02/24: Improved respirations. Vitals improved, no longer bradycardic as patient off of precedex. prn ativan for anxiety however counseled on how to deal with "panic attacks". Currently on HiFlo NC, RT will attempt to de-escalate to salter NC. continue with bipap qhs/prn. Continued therapy for covid 19 viral infection with solumedrol and remdesivir. Pulmonary and ID recommendations reviewed. Continue [facility] level of care at this time, prognosis remains guarded. 02/25: Patient seen and examined today. Continues off Precedex. Continues on BiPAP and high flow and intermittently. Discussed with consumer loan specialist patient to be transferred to the medical floor and continue weaning oxygen as tolerated. Mildly elevated D-dimer considering COVID diagnosis with empirically treat with full dose anticoagulation. Recommend proning as tolerated. Home O2 evaluation prior to discharge 02/26: Patient still hypoxic respiratory failure secondary to COVID-19 continue current management. He continues on steroids for 10 days, and has completed Remdesivir. We will continue to wean oxygen as tolerated. If continues to wean down on liters flow and FiO2 will likely transfer to the medical floor in a.m. Encourage proning as tolerated. 02/27: Continue current management wean as tolerated from oxygen. Prone position if tolerated. Continue steroids. Patient still on high flow nasal cannula. Hopefully transition soon to normal nasal cannula and home O2 evaluation prior to discharge. 02/28: Patient seen and examined clinically stable at this time. Down to 3 L nasal cannula. Awaiting placement to rehab. Downgrade to the third floor. Assessment and plan: This is a 61-year-old male with current nicotine abuse, HTN and COPD admitted with COPD exacerbation secondary to COVID-19 infection Neuro: Generalized anxiety disorder -As needed Ativan IV -S/p Precedex drip, now d/c -Reorientation as needed -Maintain sleep-wake cycle -As needed analgesia Cardiac: SB, h/o hypertension -Cardiology consulted, appreciate recommendations -Blood pressure monitoring per protocol -Hold home antihypertension regimen Respiratory: Acute hypoxemic respiratory failure, COPD exacerbation, h/o COPD, current nicotine abuse -Pulmonology consulted, appreciate recommendations -s/p Ventimask -BiPAP as needed -Wean to hyponasal cannula -SPO2 monitor per protocol -Supplemental oxygen as needed -Pulmonary hygiene -Albuterol, Pulmicort, Brovana GI: Moderate protein calorie malnutrition -24 hours -215 ml -Regular diet -Nutrition supplementation : NAD -Monitor intake and output -Renally dose medications -Avoid nephrotoxic medications -Trend BMP ID: COVID 19 infection -Infectious disease consulted, appreciate recommendation -COVID-19 PCR positive -Solu-Medrol 60 mg every 6 hours -Antibiotic discontinued -Remdesivir for 5 days (02/21-02/26) -Contact/droplet precautions -f/u blood culture -Monitor WBC and temperature curve -Trend COVID-19 inflammatory markers -Anticoagulation per protocol Endo: NAD -Avoid hypoglycemia Heme: Leukopenia (resolved) -Trend CBC -Transfuse hemoglobin less than 7 -SCDs to BLE while in bed History Interval history: Patient seen and examined resting comfortably down to 3 L Hospitalist Physical - Physical exam Narrative exam: - Physical exam Narrative exam: General appearance: Present: mild distress, cachectic, continues on 3 L nasal cannula - EENT Eyes: Present: PERRL, EOM intact ENT: clear oral mucosa, dentition normal - Neck Neck: Present: normal ROM - Respiratory Respiratory effort: normal Respiratory: bilateral: diminished - Cardiovascular Rhythm: regular Heart Sounds: Present: S1 & S2. Absent: systolic murmur, diastolic murmur - Extremities Extremities: no ischemia, pulses intact, pulses symmetrical, No edema, normal temperature, normal color, Full ROM Peripheral Pulses: within normal limits - Abdominal General gastrointestinal: soft, non-tender, non-distended, normal bowel sounds - Integumentary Integumentary: Present: warm, dry - Psychiatric Psychiatric: cooperative - Neurologic Neurologic: CNII-XII intact, no focal deficits, moves all extremities - Allied Health Allied health notes reviewed: nursing, RT - Constitutional Vitals: Temp Pulse Resp BP Pulse Ox 98 F 85 31 H 113/65 90 02/28/22 11:00 02/28/22 14:00 02/28/22 14:00 02/28/22 14:00 02/28/22 14:00 General appearance: Present: mild distress, cachectic HEART Score - HEART Score Troponin: Troponin T TNR 02/20/22 14:34 Results - Labs CBC & Chem 7: 02/27/22 04:53 02/28/22 04:24 Labs: Laboratory Last Values WBC 8.6 K/mm3 (4.5-11.0) 02/27/22 04:53 RBC 4.95 M/mm3 (3.65-5.03) 02/27/22 04:53 Hgb 11.9 gm/dl (11.8-15.2) 02/27/22 04:53 Hct 38.2 % (35.5-45.6) 02/27/22 04:53 MCV 77 fl (84-94) L 02/27/22 04:53 MCH 24 pg (28-32) L 02/27/22 04:53 MCHC 31 % (32-34) L 02/27/22 04:53 RDW 17.3 % (13.2-15.2) H 02/27/22 04:53 Plt Count 416 K/mm3 (140-440) 02/27/22 04:53 Lymph % (Auto) 7.8 % (13.4-35.0) L 02/25/22 04:34 Boyd % (Auto) 3.8 % (0.0-7.3) 02/25/22 04:34 Eos % (Auto) 0.4 % (0.0-4.3) 02/25/22 04:34 Baso % (Auto) 0.2 % (0.0-1.8) 02/25/22 04:34 Lymph # (Auto) 0.6 K/mm3 (1.2-5.4) L 02/25/22 04:34 Boyd # (Auto) 0.3 K/mm3 (0.0-0.8) 02/25/22 04:34 Eos # (Auto) 0.0 K/mm3 (0.0-0.4) 02/25/22 04:34 Baso # (Auto) 0.0 K/mm3 (0.0-0.1) 02/25/22 04:34 Seg Neutrophils % 87.8 % (40.0-70.0) H 02/25/22 04:34 Seg Neutrophils # 6.2 K/mm3 (1.8-7.7) 02/25/22 04:34 PT 17.3 Sec. (12.2-14.9) H 02/25/22 22:44 INR 1.26 (0.87-1.13) H 02/25/22 22:44 APTT 42.0 Sec. (24.2-36.6) H 02/25/22 22:44 D-Dimer 258.52 ng/mlDDU (0-234) H 02/25/22 04:34 ABG pH 7.440 pH Units (7.350-7.450) 02/24/22 15:00 ABG pCO2 42.6 mm Hg 02/24/22 15:00 ABG pO2 62.1 mm Hg (80.0-90.0) L 02/24/22 15:00 ABG HCO3 28.3 mmol/L (20.0-26.0) H 02/24/22 15:00 ABG O2 Saturation 94.3 % (95.0-99.0) L 02/24/22 15:00 ABG O2 Content 18.6 (0.0-44) 02/24/22 15:00 ABG Base Excess 3.7 mmol/L (-2.0-3.0) H 02/24/22 15:00 ABG Hemoglobin 14.3 gm/dl (14.0-18.0) 02/24/22 15:00 ABG Carboxyhemoglobin 1.2 % (0.0-5.0) 02/24/22 15:00 ABG Methemoglobin 0.5 % (0.0-1.5) 02/24/22 15:00 Oxyhemoglobin 92.7 % (95.0-99.0) L 02/24/22 15:00 FiO2 30 % 02/24/22 15:00 Sodium 139 mmol/L (137-145) 02/25/22 04:34 Potassium 3.7 mmol/L (3.6-5.0) 02/25/22 04:34 Chloride 99.8 mmol/L (98-107) 02/25/22 04:34 Carbon Dioxide 30 mmol/L (22-30) 02/25/22 04:34 Anion Gap 13 mmol/L 02/25/22 04:34 BUN 15 mg/dL (9-20) 02/25/22 04:34 Creatinine 0.3 mg/dL (0.8-1.3) L 02/28/22 04:24 Estimated GFR > 60 ml/min 02/28/22 04:24 BUN/Creatinine Ratio 50 % 02/25/22 04:34 Glucose 115 mg/dL (75-100) H 02/25/22 04:34 POC Glucose 122 mg/dL (70-105) H 02/24/22 16:23 Lactic Acid 2.10 mmol/L (0.7-2.0) H* 02/20/22 14:34 Calcium 8.5 mg/dL (8.4-10.2) 02/25/22 04:34 Magnesium TNR 02/20/22 14:34 Ferritin 716.1 ng/mL (30.0-300.0) H 02/25/22 04:34 Total Bilirubin 0.40 mg/dL (0.1-1.2) 02/25/22 04:34 AST 12 units/L (5-40) 02/25/22 04:34 ALT 11 units/L (7-56) 02/25/22 04:34 Alkaline Phosphatase 77 units/L (35-129) 02/25/22 04:34 Lactate Dehydrogenase 187 units/L (91-180) H 02/25/22 04:34 Total Creatine Kinase TNR 02/20/22 14:34 CK-MB (CK-2) TNR 02/20/22 14:34 CK-MB (CK-2) Rel Index TNR 02/20/22 14:34 Troponin T TNR 02/20/22 14:34 C-Reactive Protein 0.60 mg/dL (0.00-1.30) 02/25/22 04:34 NT-Pro-B Natriuret Pep 146.4 pg/mL (0-900) 02/20/22 13:39 Total Protein 5.8 g/dL (6.3-8.2) L 02/25/22 04:34 Albumin 3.1 g/dL (3.9-5) L 02/25/22 04:34 Albumin/Globulin Ratio 1.1 % 02/25/22 04:34 Triglycerides 140 mg/dL (2-149) 02/20/22 13:39 Cholesterol 154 mg/dL (50-199) 02/20/22 13:39 LDL Cholesterol Direct 90 mg/dL (50-130) 02/20/22 13:39 HDL Cholesterol 34 mg/dL (40-59) L 02/20/22 13:39 Cholesterol/HDL Ratio 4.52 % 02/20/22 13:39 Lipase TNR 02/20/22 14:34 Urine Color Yellow (Yellow) 02/20/22 18:53 Urine Turbidity Cloudy (Clear) 02/20/22 18:53 Specific [place] (Man) 1.020 (1.003-1.030) 02/20/22 18:53 Ur Protein (Man) 1+ mg/dL (Negative) 02/20/22 18:53 Ur Ketones (Man) Negative (Negative) 02/20/22 18:53 Ur Nitrite (Man) Negative (Negative) 02/20/22 18:53 Ur Reducing Substances Not Reportable 02/20/22 18:53 Urine Bilirubin (Man) Negative (Negative) 02/20/22 18:53 Leukocyte Esterase (Man) Negative (Negative) 02/20/22 18:53 Urine WBC (Auto) 3.0 /HPF (0.0-6.0) 02/20/22 18:53 Urine RBC (Auto) 1.0 /HPF (0.0-6.0) 02/20/22 18:53 Urine RBC (Manual) Negative (Negative) 02/20/22 18:53 Urine Mucus 1+ /HPF 02/20/22 18:53 Nasal Screen MRSA (PCR) Negative (Negative) 02/22/22 Unknown Urine Opiates Screen Negative 02/20/22 18:53 Urine Methadone Screen Negative 02/20/22 18:53 Ur Barbiturates Screen Negative 02/20/22 18:53 Ur Phencyclidine Scrn Negative 02/20/22 18:53 Ur Amphetamines Screen Negative 02/20/22 18:53 U Benzodiazepines Scrn Negative 02/20/22 18:53 Urine Cocaine Screen Negative 02/20/22 18:53 U Marijuana (THC) Screen Negative 02/20/22 18:53 Drugs of Abuse Note Disclamer 02/20/22 18:53 Coronavirus (PCR) Positive (Negative) A 02/21/22 11:30 Linder/IV: Voiding Method Urinal Active Medications - Current Medications Current Medications: Generic Name Dose Route Start Last Admin Trade Name Freq PRN Reason Stop Dose Admin Acetaminophen 650 mg 02/20/22 17:46 02/24/22 00:03 Acetaminophen 325 Mg Tab PO 650 mg Q4H PRN Administration Pain MILD(1-3)/Fever >100.5/SALEEM Albuterol 2.5 mg 02/21/22 12:00 Albuterol 2.5 Mg/3 Ml Nebu IH Q4HRT PRN Shortness Of Breath Arformoterol Tartrate 15 mcg 02/21/22 20:00 02/28/22 07:47 Arformoterol 15 Mcg/2 Ml Nebu IH 15 mcg Q12HRT LIONEL Administration Budesonide 0.5 mg 02/21/22 20:00 02/28/22 07:47 Budesonide 0.5 Mg/2 Ml Nebu IH 0.5 mg Q12HRT LIONEL Administration Famotidine 20 mg 02/20/22 22:00 02/28/22 09:49 Famotidine 20 Mg Tab PO 20 mg BID LIONEL Administration Heparin Sodium (Porcine) 5,000 unit 02/25/22 16:00 02/27/22 21:38 Heparin 5,000 Unit/1 Ml Vial SUB-Q 5,000 unit Q8HR LIONEL Administration Lorazepam 0.5 mg 02/23/22 12:53 02/24/22 20:20 Lorazepam 2 Mg/Ml Vial IV 0.5 mg Q4H PRN Administration Anxiety Methylprednisolone Sodium Succinate 60 mg 02/22/22 00:00 02/28/22 12:16 Methylprednisolone Sod Succinate 125 Mg/2 Ml Inj IV 60 mg Q6HR LIONEL Administration Metoclopramide HCl 10 mg 02/20/22 17:46 Metoclopramide 10 Mg/2 Ml Inj IV Q6H PRN Nausea And Vomiting Ondansetron HCl 4 mg 02/20/22 17:46 Ondansetron 4 Mg/2 Ml Inj IV Q8H PRN Nausea And Vomiting Oxycodone/Acetaminophen 1 tab 02/20/22 17:46 02/26/22 22:55 Oxycodone /Acetaminophen 5-325mg Tab PO 1 tab Q6H PRN Administration Pain, Moderate (4-6) Sodium Chloride 10 ml 02/20/22 22:00 02/28/22 12:16 Sodium Chloride 0.9% 10 Ml Flush Syringe IV 10 ml BID LIONEL Administration Sodium Chloride 10 ml 02/20/22 17:46 Sodium Chloride 0.9% 10 Ml Flush Syringe IV PRN PRN LINE FLUSH Nutrition/Malnutrition Assess - Dietary Evaluation Nutrition/Malnutrition Findings: Nutrition Notes Start: 02/21/22 14:17 Freq: Status: Active Protocol: Document 02/28/22 12:41 ALLA (Rec: 02/28/22 12:44 ALLA [id number]) Nutrition Notes Initial or Follow up Reassessment Current Diagnosis COPD,Hypertension,Respiratory Failure Other Pertinent Diagnosis RLL pneu, COPD exacerbation, COVID-19 (+) Current Diet Regular + Ensure High Protein TID Labs/Tests Reviewed Pertinent Medications Reviewed Height 5 ft 5 in Weight 35.6 kg [place] Body Weight (kg) 61.81 BMI 13.0 Weight Status Underweight Subjective/Other Information Pt has consumed 92% of meals since last assessment. Spoke with pt via phone (12:40); he reports "very good" appetite and that he no longer desires the ONS. Burn Absent Trauma Absent #1 Nutrition Diagnosis Malnutrition As Evidenced by Signs and Symptoms pt reports good appetite and PO intake meeting 100% energy and pro needs Diagnosis Progress(for reassessment Improved documentation) Is patient on ventilator? No Is Patient Ambulatory and/or Out of Bed Yes REE-([place]. or-ambulatory/OOB) [ 1401.244 [id number]] Kcal/Kg value to use for calculation 50 Approximate Energy Requirements Using 1780 kcal/Kg Calculation Used for Recommendations Kcal/kg Additional Notes Pro needs 1.2-1.5g/k-53g/ day Fluid needs 1ml/kcal Nutrition Intervention Change Diet Order: Continue current diet order Add Supplement/Snack (indicate name/kcal D/C ONS /protein ) Goal #1 PO intakes to continue to meet 100% energy and pro needs Goal #2 Wt maintenance and/or gain Follow-Up By: 03/07/22 Additional Comments F/U: intakes, wt
[2022-02-28] MEDS: HEPARIN 5,000 UNIT/1 ML VIAL SUB-Q SCH ×3 (16:29→21:46)
[2022-03-01] MEDS: methylPREDNISolone Sod Succinate 125 MG/2 ML INJ IV SCH ×7 (03:14→23:00)
[2022-03-01 04:19] LABS: Hematocrit 37.1 % (35.5-45.6); Hemoglobin 11.9 gm/dl (11.8-15.2); Mean Corpuscular HGB Conc 32 % (32-34); Mean Corpuscular Volume 75 fl (84-94); Platelet Count 380 K/mm3 (140-440); Red Blood Count 4.93 M/mm3 (3.65-5.03); Red Cell Distribution Width 17.6 % (13.2-15.2)
[2022-03-01] MEDS: HEPARIN 5,000 UNIT/1 ML VIAL SUB-Q SCH ×3 (06:52→22:52)
[2022-03-01] MEDS: BUDESONIDE 0.5 MG/2 ML NEBU IH SCH ×2 (08:22→20:29)
[2022-03-01] MEDS: ARFORMOTEROL 15 MCG/2 ML NEBU IH SCH ×2 (08:22→20:29)
--- NOTE | 2022-03-01 11:24 | Progress Note ---
Assessment and Plan Assessment and plan: This is a 61-year-old male with current nicotine abuse, HTN and COPD who presented to emergency department on 02/20 with shortness of breath over the past 2 to 3 days, cough with sputum production and increasing shortness of breath not responding to inhalers or nebulizer treatments. In the emergency department patient was tachycardic and tachypneic and SPO2 was in the 70s on room air. Patient was given albuterol, magnesium, and remdesivir by EMS on arrival. Recommend the emergency department. CXR wet read with right lower lobe pneumonia. Patient was admitted to the hospitalist service with acute hypoxic respiratory failure, right lower lobe pneumonia and COPD exacerbation with consult to pulmonology. Hospital course to date: 02/21: No acute events overnight, COVID-19 PCR positive, infectious disease consulted started on remdesivir 02/22: Patient transferred to [facility], currently on CPAP with increased work of breathing. Given 1 dose of Ativan which helped work of breathing and heart rate decreased. 02/23: Patient was on continuous BiPAP all night, this morning patient weaned to high flow nasal cannula with RT. Noted bradycardia overnight and patient is on remdesivir therefore Precedex will be stopped and as needed Ativan will be ordered. Patient states that he feels much better and instructed to self prone as tolerated. 02/24: Improved respirations. Vitals improved, no longer bradycardic as patient off of precedex. prn ativan for anxiety however counseled on how to deal with "panic attacks". Currently on HiFlo NC, RT will attempt to de-escalate to [place]ter NC. continue with bipap qhs/prn. Continued therapy for covid 19 viral infection with solumedrol and remdesivir. Pulmonary and ID recommendations reviewed. Continue [facility] level of care at this time, prognosis remains guarded. 02/25: Patient seen and examined today. Continues off Precedex. Continues on BiPAP and high flow and intermittently. Discussed with tow operator patient to be transferred to the medical floor and continue weaning oxygen as tolerated. Mildly elevated D-dimer considering COVID diagnosis with empirically treat with full dose anticoagulation. Recommend proning as tolerated. Home O2 evaluation prior to discharge 02/26: Patient still hypoxic respiratory failure secondary to COVID-19 continue current management. He continues on steroids for 10 days, and has completed Remdesivir. We will continue to wean oxygen as tolerated. If continues to wean down on liters flow and FiO2 will likely transfer to the medical floor in a.m. Encourage proning as tolerated. 02/27: Continue current management wean as tolerated from oxygen. Prone position if tolerated. Continue steroids. Patient still on high flow nasal cannula. Hopefully transition soon to normal nasal cannula and home O2 evaluation prior to discharge. 02/28: Patient seen and examined clinically stable at this time. Down to 3 L nasal cannula. Awaiting placement to rehab. Downgrade to the third floor. 03/01: Continue Isolation precaution per hospital policy. Pt clinically stable on 3l NC. Awaiting placement. Discussed with Nursing staff. Assessment and plan: This is a 61-year-old male with current nicotine abuse, HTN and COPD admitted with COPD exacerbation secondary to COVID-19 infection Neuro: Generalized anxiety disorder -As needed Ativan IV -S/p Precedex drip, now d/c -Reorientation as needed -Maintain sleep-wake cycle -As needed analgesia Cardiac: SB, h/o hypertension -Cardiology consulted, appreciate recommendations -Blood pressure monitoring per protocol -Hold home antihypertension regimen Respiratory: Acute hypoxemic respiratory failure, COPD exacerbation, h/o COPD, current nicotine abuse -Pulmonology consulted, appreciate recommendations -s/p Ventimask -BiPAP as needed -Wean to hyponasal cannula -SPO2 monitor per protocol -Supplemental oxygen as needed -Pulmonary hygiene -Albuterol, Pulmicort, Brovana GI: Moderate protein calorie malnutrition -24 hours -215 ml -Regular diet -Nutrition supplementation : NAD -Monitor intake and output -Renally dose medications -Avoid nephrotoxic medications -Trend BMP ID: COVID 19 infection -Infectious disease consulted, appreciate recommendation -COVID-19 PCR positive -Solu-Medrol 60 mg every 6 hours -Antibiotic discontinued -Remdesivir for 5 days (02/21-02/26) -Contact/droplet precautions -f/u blood culture -Monitor WBC and temperature curve -Trend COVID-19 inflammatory markers -Anticoagulation per protocol Endo: NAD -Avoid hypoglycemia Heme: Leukopenia (resolved) -Trend CBC -Transfuse hemoglobin less than 7 -SCDs to BLE while in bed History Interval history: Patient seen and examined resting comfortably down to 3 L, no fever, tolerating diet Hospitalist Physical - Physical exam Narrative exam: - Physical exam Narrative exam: General appearance: Present: No distress, cachectic, continues on 3 L nasal cannula - EENT Eyes: Present: PERRL, EOM intact ENT: clear oral mucosa, dentition normal - Neck Neck: Present: normal ROM - Respiratory Respiratory effort: normal Respiratory: bilateral: diminished - Cardiovascular Rhythm: regular Heart Sounds: Present: S1 & S2. Absent: systolic murmur, diastolic murmur - Extremities Extremities: no ischemia, pulses intact, pulses symmetrical, No edema, normal temperature, normal color, Full ROM Peripheral Pulses: within normal limits - Abdominal General gastrointestinal: soft, non-tender, non-distended, normal bowel sounds - Integumentary Integumentary: Present: warm, dry - Psychiatric Psychiatric: cooperative - Neurologic Neurologic: CNII-XII intact, no focal deficits, moves all extremities - Allied Health Allied health notes reviewed: nursing, RT - Constitutional Vitals: Temp Pulse Resp BP Pulse Ox 98 F 81 22 107/66 100 02/28/22 15:00 03/01/22 08:00 03/01/22 08:00 03/01/22 00:58 03/01/22 08:29 General appearance: Present: mild distress, cachectic HEART Score - HEART Score Troponin: Troponin T TNR 02/20/22 14:34 Results - Labs CBC & Chem 7: 03/01/22 03:48 02/28/22 04:24 Labs: Laboratory Last Values WBC 12.3 K/mm3 (4.5-11.0) H 03/01/22 03:48 RBC 4.93 M/mm3 (3.65-5.03) 03/01/22 03:48 Hgb 11.9 gm/dl (11.8-15.2) 03/01/22 03:48 Hct 37.1 % (35.5-45.6) 03/01/22 03:48 MCV 75 fl (84-94) L 03/01/22 03:48 MCH 24 pg (28-32) L 03/01/22 03:48 MCHC 32 % (32-34) 03/01/22 03:48 RDW 17.6 % (13.2-15.2) H 03/01/22 03:48 Plt Count 380 K/mm3 (140-440) 03/01/22 03:48 Lymph % (Auto) 7.8 % (13.4-35.0) L 02/25/22 04:34 [place] % (Auto) 3.8 % (0.0-7.3) 02/25/22 04:34 Eos % (Auto) 0.4 % (0.0-4.3) 02/25/22 04:34 Baso % (Auto) 0.2 % (0.0-1.8) 02/25/22 04:34 Lymph # (Auto) 0.6 K/mm3 (1.2-5.4) L 02/25/22 04:34 [place] # (Auto) 0.3 K/mm3 (0.0-0.8) 02/25/22 04:34 Eos # (Auto) 0.0 K/mm3 (0.0-0.4) 02/25/22 04:34 Baso # (Auto) 0.0 K/mm3 (0.0-0.1) 02/25/22 04:34 Seg Neutrophils % 87.8 % (40.0-70.0) H 02/25/22 04:34 Seg Neutrophils # 6.2 K/mm3 (1.8-7.7) 02/25/22 04:34 PT 17.3 Sec. (12.2-14.9) H 02/25/22 22:44 INR 1.26 (0.87-1.13) H 02/25/22 22:44 APTT 42.0 Sec. (24.2-36.6) H 02/25/22 22:44 D-Dimer 258.52 ng/mlDDU (0-234) H 02/25/22 04:34 ABG pH 7.440 pH Units (7.350-7.450) 02/24/22 15:00 ABG pCO2 42.6 mm Hg 02/24/22 15:00 ABG pO2 62.1 mm Hg (80.0-90.0) L 02/24/22 15:00 ABG HCO3 28.3 mmol/L (20.0-26.0) H 02/24/22 15:00 ABG O2 Saturation 94.3 % (95.0-99.0) L 02/24/22 15:00 ABG O2 Content 18.6 (0.0-44) 02/24/22 15:00 ABG Base Excess 3.7 mmol/L (-2.0-3.0) H 02/24/22 15:00 ABG Hemoglobin 14.3 gm/dl (14.0-18.0) 02/24/22 15:00 ABG Carboxyhemoglobin 1.2 % (0.0-5.0) 02/24/22 15:00 ABG Methemoglobin 0.5 % (0.0-1.5) 02/24/22 15:00 Oxyhemoglobin 92.7 % (95.0-99.0) L 02/24/22 15:00 FiO2 30 % 02/24/22 15:00 Sodium 139 mmol/L (137-145) 02/25/22 04:34 Potassium 3.7 mmol/L (3.6-5.0) 02/25/22 04:34 Chloride 99.8 mmol/L (98-107) 02/25/22 04:34 Carbon Dioxide 30 mmol/L (22-30) 02/25/22 04:34 Anion Gap 13 mmol/L 02/25/22 04:34 BUN 15 mg/dL (9-20) 02/25/22 04:34 Creatinine 0.3 mg/dL (0.8-1.3) L 02/28/22 04:24 Estimated GFR > 60 ml/min 02/28/22 04:24 BUN/Creatinine Ratio 50 % 02/25/22 04:34 Glucose 115 mg/dL (75-100) H 02/25/22 04:34 POC Glucose 122 mg/dL (70-105) H 02/24/22 16:23 Lactic Acid 2.10 mmol/L (0.7-2.0) H* 02/20/22 14:34 Calcium 8.5 mg/dL (8.4-10.2) 02/25/22 04:34 Magnesium TNR 02/20/22 14:34 Ferritin 716.1 ng/mL (30.0-300.0) H 02/25/22 04:34 Total Bilirubin 0.40 mg/dL (0.1-1.2) 02/25/22 04:34 AST 12 units/L (5-40) 02/25/22 04:34 ALT 11 units/L (7-56) 02/25/22 04:34 Alkaline Phosphatase 77 units/L (35-129) 02/25/22 04:34 Lactate Dehydrogenase 187 units/L (91-180) H 02/25/22 04:34 Total Creatine Kinase TNR 02/20/22 14:34 CK-MB (CK-2) TNR 02/20/22 14:34 CK-MB (CK-2) Rel Index TNR 02/20/22 14:34 Troponin T TNR 02/20/22 14:34 C-Reactive Protein 0.60 mg/dL (0.00-1.30) 02/25/22 04:34 NT-Pro-B Natriuret Pep 146.4 pg/mL (0-900) 02/20/22 13:39 Total Protein 5.8 g/dL (6.3-8.2) L 02/25/22 04:34 Albumin 3.1 g/dL (3.9-5) L 02/25/22 04:34 Albumin/Globulin Ratio 1.1 % 02/25/22 04:34 Triglycerides 140 mg/dL (2-149) 02/20/22 13:39 Cholesterol 154 mg/dL (50-199) 02/20/22 13:39 LDL Cholesterol Direct 90 mg/dL (50-130) 02/20/22 13:39 HDL Cholesterol 34 mg/dL (40-59) L 02/20/22 13:39 Cholesterol/HDL Ratio 4.52 % 02/20/22 13:39 Lipase TNR 02/20/22 14:34 Urine Color Yellow (Yellow) 02/20/22 18:53 Urine Turbidity Cloudy (Clear) 02/20/22 18:53 Specific [place] (Man) 1.020 (1.003-1.030) 02/20/22 18:53 Ur Protein (Man) 1+ mg/dL (Negative) 02/20/22 18:53 Ur Ketones (Man) Negative (Negative) 02/20/22 18:53 Ur Nitrite (Man) Negative (Negative) 02/20/22 18:53 Ur Reducing Substances Not Reportable 02/20/22 18:53 Urine Bilirubin (Man) Negative (Negative) 02/20/22 18:53 Leukocyte Esterase (Man) Negative (Negative) 02/20/22 18:53 Urine WBC (Auto) 3.0 /HPF (0.0-6.0) 02/20/22 18:53 Urine RBC (Auto) 1.0 /HPF (0.0-6.0) 02/20/22 18:53 Urine RBC (Manual) Negative (Negative) 02/20/22 18:53 Urine Mucus 1+ /HPF 02/20/22 18:53 Nasal Screen MRSA (PCR) Negative (Negative) 02/22/22 Unknown Urine Opiates Screen Negative 02/20/22 18:53 Urine Methadone Screen Negative 02/20/22 18:53 Ur Barbiturates Screen Negative 02/20/22 18:53 Ur Phencyclidine Scrn Negative 02/20/22 18:53 Ur Amphetamines Screen Negative 02/20/22 18:53 U Benzodiazepines Scrn Negative 02/20/22 18:53 Urine Cocaine Screen Negative 02/20/22 18:53 U Marijuana (THC) Screen Negative 02/20/22 18:53 Drugs of Abuse Note Disclamer 02/20/22 18:53 Coronavirus (PCR) Positive (Negative) A 02/21/22 11:30 Linder/IV: Voiding Method Urinal Active Medications - Current Medications Current Medications: Generic Name Dose Route Start Last Admin Trade Name Freq PRN Reason Stop Dose Admin Acetaminophen 650 mg 02/20/22 17:46 02/24/22 00:03 Acetaminophen 325 Mg Tab PO 650 mg Q4H PRN Administration Pain MILD(1-3)/Fever >100.5/SALEEM Albuterol 2.5 mg 02/21/22 12:00 Albuterol 2.5 Mg/3 Ml Nebu IH Q4HRT PRN Shortness Of Breath Arformoterol Tartrate 15 mcg 02/21/22 20:00 03/01/22 08:22 Arformoterol 15 Mcg/2 Ml Nebu IH 15 mcg Q12HRT LIONEL Administration Budesonide 0.5 mg 02/21/22 20:00 03/01/22 08:22 Budesonide 0.5 Mg/2 Ml Nebu IH 0.5 mg Q12HRT LIONEL Administration Famotidine 20 mg 02/20/22 22:00 02/28/22 21:46 Famotidine 20 Mg Tab PO 20 mg BID LIONEL Administration Heparin Sodium (Porcine) 5,000 unit 02/25/22 16:00 03/01/22 06:52 Heparin 5,000 Unit/1 Ml Vial SUB-Q 5,000 unit Q8HR LIONEL Administration Lorazepam 0.5 mg 02/23/22 12:53 02/24/22 20:20 Lorazepam 2 Mg/Ml Vial IV 0.5 mg Q4H PRN Administration Anxiety Methylprednisolone Sodium Succinate 60 mg 02/22/22 00:00 03/01/22 06:51 Methylprednisolone Sod Succinate 125 Mg/2 Ml Inj IV 0.96 mg Q6HR LIONEL Administration Metoclopramide HCl 10 mg 02/20/22 17:46 Metoclopramide 10 Mg/2 Ml Inj IV Q6H PRN Nausea And Vomiting Ondansetron HCl 4 mg 02/20/22 17:46 Ondansetron 4 Mg/2 Ml Inj IV Q8H PRN Nausea And Vomiting Oxycodone/Acetaminophen 1 tab 02/20/22 17:46 02/26/22 22:55 Oxycodone /Acetaminophen 5-325mg Tab PO 1 tab Q6H PRN Administration Pain, Moderate (4-6) Sodium Chloride 10 ml 02/20/22 22:00 02/28/22 21:46 Sodium Chloride 0.9% 10 Ml Flush Syringe IV 10 ml BID LIONEL Administration Sodium Chloride 10 ml 02/20/22 17:46 Sodium Chloride 0.9% 10 Ml Flush Syringe IV PRN PRN LINE FLUSH Nutrition/Malnutrition Assess - Dietary Evaluation Nutrition/Malnutrition Findings: Nutrition Notes Start: 02/21/22 14:17 Freq: Status: Active Protocol: Document 02/28/22 12:41 ALLA (Rec: 02/28/22 12:44 [facility] [id number]) Nutrition Notes Initial or Follow up Reassessment Current Diagnosis COPD,Hypertension,Respiratory Failure Other Pertinent Diagnosis RLL pneu, COPD exacerbation, COVID-19 (+) Current Diet Regular + Ensure High Protein TID Labs/Tests Reviewed Pertinent Medications Reviewed Height 5 ft 5 in Weight 35.6 kg [place] Body Weight (kg) 61.81 BMI 13.0 Weight Status Underweight Subjective/Other Information Pt has consumed 92% of meals since last assessment. Spoke with pt via phone (12:40); he reports "very good" appetite and that he no longer desires the ONS. Burn Absent Trauma Absent #1 Nutrition Diagnosis Malnutrition As Evidenced by Signs and Symptoms pt reports good appetite and PO intake meeting 100% energy and pro needs Diagnosis Progress(for reassessment Improved documentation) Is patient on ventilator? No Is Patient Ambulatory and/or Out of Bed Yes REE-(Todd-St. Jeor-ambulatory/OOB) [ 1401.244 NUTR.[id number]] Kcal/Kg value to use for calculation 50 Approximate Energy Requirements Using 1780 kcal/Kg Calculation Used for Recommendations Kcal/kg Additional Notes Pro needs 1.2-1.5g/k-53g/ day Fluid needs 1ml/kcal Nutrition Intervention Change Diet Order: Continue current diet order Add Supplement/Snack (indicate name/kcal D/C ONS /protein ) Goal #1 PO intakes to continue to meet 100% energy and pro needs Goal #2 Wt maintenance and/or gain Follow-Up By: 03/07/22 Additional Comments F/U: intakes, wt
[2022-03-01] MEDS: FAMOTIDINE 20 MG TAB PO SCH ×2 (11:38→22:52)
--- NOTE | 2022-03-01 13:58 | Progress Note ---
Assessment and Plan 1 y/o male with acute respiratory failure from COPD exacerbation secondary to COVID 03/01/2022: Patient continued to improve continue with steroids and inhaled bronchodilators. NIV at night. 02/28/22: [facility] Continue to wean FiO2 and Flow for sats 88%. Continue high dose steroids until back on nasal cannula. Incentive darell. Daily net negative state. Continue NIV therapy at night. 02/27/22: Taking a long time to wean. Not unexpected given his smoking history and degree of COPD and conditioning prior to arrival. Still suggest that he be evaluated for LTACH. Continue high dose steroids. I/O are negative if accurate and this is where he needs to be. Continue NIV at night. Wean For sats >88% 02/26/22: Patient had to go back on Bipap yesterday morning so transfer was held. Patient needs to wear NIV night, not for hypoxemia but given his degree of COPD and propensity for concomitant NORTH that is undiagnosed. This would benefit patient and help with oxygen requirements so please place patient on it. If patient refuses, please document. Continue high dose steroids until off HFNC. Anxiety therapy. 02/25/22: COntinue to wean FiO2 as tolerated. Most likely will need oxygen at discharge. Continue Remdesivir and steroids. Continue PRN NIV, can change night time to PRN as well. Daily negative fluid balance. Will transfer to floor. (COVID Floor) 02/24/22: No further bradycardia, actually tachy. Remains calm and RT is weaning HFNC. Continue Remdesivir and steroids. NIV at night and PRN. Prognosis remains guarded but improving. Today is his 62 birthday 02/23/22: Had some bradycardia this am. Concern for precedex induced vs remdesivir or a combination of both. Will stop precedex and put on PRN ativan. Did will with 0.5 yesterday so will do 0.6 IV q4. Bipap PRN and QHS. Tolerat ing HFNC right now. 1. high dose steroids 2. Bipap PRN and QHS 3. Remdesivir 4. CRP to low for Actemra 5. Negative fluid balance daily 6. Guarded prognosis, did well with ativan PRN so will initiate precedex therapy to help prevent intubation. Long discussion with outside of room and how the mortality would increase if placed on ventilator. Expressed understanding and they will discuss more. Subjective Date of service: 03/01/22 Interval history: Patient feeling much better. Moved out of IMCU. On nasal cannula. Breathing is improving. Has nonproductive cough Objective - Exam Narrative Exam: - Physical exam Narrative exam: General appearance: Present: No distress, cachectic, continues on 3 L nasal cannula - EENT Eyes: Present: PERRL, EOM intact ENT: clear oral mucosa, dentition normal - Neck Neck: Present: normal ROM - Respiratory Respiratory effort: normal Respiratory: bilateral: diminished - Cardiovascular Rhythm: regular Heart Sounds: Present: S1 & S2. Absent: systolic murmur, diastolic murmur - Extremities Extremities: no ischemia, pulses intact, pulses symmetrical, No edema, normal temperature, normal color, Full ROM Peripheral Pulses: within normal limits - Abdominal General gastrointestinal: soft, non-tender, non-distended, normal bowel sounds - Integumentary Integumentary: Present: warm, dry - Psychiatric Psychiatric: cooperative - Neurologic Neurologic: CNII-XII intact, no focal deficits, moves all extremities - Allied Health Allied health notes reviewed: nursing, RT Vital Signs - 12hr 03/01/22 03/01/22 03/01/22 08:00 08:29 08:30 Temperature Pulse Rate Pulse Rate [ 81 Bilateral] Respiratory 21 Rate Respiratory 22 Rate [Bilateral ] Blood Pressure O2 Sat by Pulse 100 96 Oximetry 03/01/22 11:27 Temperature 97.7 F Pulse Rate 104 H Pulse Rate [ Bilateral] Respiratory 20 Rate Respiratory Rate [Bilateral ] Blood Pressure 116/72 O2 Sat by Pulse 98 Oximetry Constitutional: appears uncomfortable, other (appears older than stated age) Eyes: non-icteric ENT: other (full face mask bipap on at present) Neck: supple Effort: very labored Ascultation: Bilateral: diminished breath sounds CBC and BMP: 03/01/22 03:48 02/28/22 04:24 ABG, PT/INR, D-dimer: ABG ABG pH 7.440 pH Units (7.350-7.450) 02/24/22 15:00 ABG pCO2 42.6 mm Hg 02/24/22 15:00 ABG pO2 62.1 mm Hg (80.0-90.0) L 02/24/22 15:00 ABG O2 Saturation 94.3 % (95.0-99.0) L 02/24/22 15:00 PT/INR, D-dimer PT 17.3 Sec. (12.2-14.9) H 02/25/22 22:44 INR 1.26 (0.87-1.13) H 02/25/22 22:44 D-Dimer 258.52 ng/mlDDU (0-234) H 02/25/22 04:34 Abnormal lab findings: Abnormal Labs 02/20/22 02/20/22 02/20/22 13:33 13:33 13:33 WBC RBC Hgb Hct MCV MCH 34 H MCHC 39 H* RDW 16.8 H Plt Count Lymph % (Auto) Lymph # (Auto) Seg Neutrophils % PT 15.4 H INR APTT D-Dimer ABG pO2 ABG HCO3 ABG O2 Saturation ABG Base Excess ABG Hemoglobin Oxyhemoglobin Sodium BUN Creatinine Glucose POC Glucose Lactic Acid 3.70 H* Magnesium Ferritin ALT Lactate Dehydrogenase Total Creatine Kinase CK-MB (CK-2) CK-MB (CK-2) Rel Index Troponin T C-Reactive Protein Total Protein Albumin HDL Cholesterol Coronavirus (PCR) 02/20/22 02/20/22 02/20/22 13:39 13:39 13:39 WBC RBC Hgb Hct MCV MCH MCHC RDW Plt Count Lymph % (Auto) Lymph # (Auto) Seg Neutrophils % PT INR APTT D-Dimer ABG pO2 ABG HCO3 ABG O2 Saturation ABG Base Excess ABG Hemoglobin Oxyhemoglobin Sodium BUN Creatinine 0.3 L Glucose 139 H POC Glucose Lactic Acid Magnesium 2.60 H Ferritin ALT 5 L Lactate Dehydrogenase Total Creatine Kinase 54 L CK-MB (CK-2) 6.4 H CK-MB (CK-2) Rel Index 11.8 H Troponin T 0.141 H* C-Reactive Protein Total Protein Albumin 3.4 L HDL Cholesterol 34 L Coronavirus (PCR) 02/20/22 02/20/22 02/21/22 14:34 16:08 05:28 WBC 3.2 L RBC Hgb 11.4 L Hct 32.3 L MCV MCH MCHC 35 H RDW 16.4 H Plt Count Lymph % (Auto) Lymph # (Auto) 0.6 L Seg Neutrophils % 73.5 H PT INR APTT D-Dimer ABG pO2 195.7 H ABG HCO3 ABG O2 Saturation 99.2 H ABG Base Excess ABG Hemoglobin 12.7 L Oxyhemoglobin Sodium BUN Creatinine Glucose POC Glucose Lactic Acid 2.10 H* Magnesium Ferritin ALT Lactate Dehydrogenase Total Creatine Kinase CK-MB (CK-2) CK-MB (CK-2) Rel Index Troponin T C-Reactive Protein Total Protein Albumin HDL Cholesterol Coronavirus (PCR) 02/21/22 02/21/22 02/21/22 05:28 09:20 09:20 WBC RBC Hgb Hct MCV MCH MCHC RDW Plt Count Lymph % (Auto) Lymph # (Auto) Seg Neutrophils % PT INR APTT D-Dimer 335.95 H ABG pO2 ABG HCO3 ABG O2 Saturation ABG Base Excess ABG Hemoglobin Oxyhemoglobin Sodium 136 L BUN Creatinine 0.2 L Glucose 141 H POC Glucose Lactic Acid Magnesium Ferritin 1666.0 H ALT < 5 L Lactate Dehydrogenase Total Creatine Kinase CK-MB (CK-2) CK-MB (CK-2) Rel Index Troponin T C-Reactive Protein Total Protein Albumin 3.0 L HDL Cholesterol Coronavirus (PCR) 02/21/22 02/21/22 02/22/22 09:20 11:30 04:41 WBC RBC 3.11 L Hgb 10.3 L Hct 27.9 L MCV MCH 33 H MCHC 37 H RDW 17.1 H Plt Count Lymph % (Auto) 12.1 L Lymph # (Auto) 0.7 L Seg Neutrophils % 80.9 H PT INR APTT D-Dimer ABG pO2 ABG HCO3 ABG O2 Saturation ABG Base Excess ABG Hemoglobin Oxyhemoglobin Sodium BUN Creatinine Glucose POC Glucose Lactic Acid Magnesium Ferritin ALT Lactate Dehydrogenase Total Creatine Kinase CK-MB (CK-2) CK-MB (CK-2) Rel Index Troponin T C-Reactive Protein 6.70 H Total Protein Albumin HDL Cholesterol Coronavirus (PCR) Positive A 02/22/22 02/22/22 02/22/22 04:41 04:41 12:20 WBC RBC Hgb Hct MCV MCH MCHC RDW Plt Count Lymph % (Auto) Lymph # (Auto) Seg Neutrophils % PT INR APTT D-Dimer ABG pO2 116.2 H ABG HCO3 26.6 H ABG O2 Saturation ABG Base Excess ABG Hemoglobin 11.9 L Oxyhemoglobin Sodium BUN Creatinine 0.3 L Glucose 116 H POC Glucose Lactic Acid Magnesium Ferritin 1116.0 H ALT Lactate Dehydrogenase Total Creatine Kinase CK-MB (CK-2) CK-MB (CK-2) Rel Index Troponin T C-Reactive Protein 2.70 H Total Protein Albumin HDL Cholesterol Coronavirus (PCR) 02/23/22 02/23/22 02/23/22 04:58 04:58 04:58 WBC RBC Hgb Hct MCV MCH MCHC RDW Plt Count Lymph % (Auto) Lymph # (Auto) Seg Neutrophils % PT INR APTT D-Dimer 262.94 H ABG pO2 ABG HCO3 ABG O2 Saturation ABG Base Excess ABG Hemoglobin Oxyhemoglobin Sodium 136 L BUN 21 H Creatinine 0.3 L Glucose 104 H POC Glucose Lactic Acid Magnesium Ferritin 806.9 H ALT Lactate Dehydrogenase Total Creatine Kinase CK-MB (CK-2) CK-MB (CK-2) Rel Index Troponin T C-Reactive Protein Total Protein 5.8 L Albumin 2.8 L HDL Cholesterol Coronavirus (PCR) 02/23/22 02/23/22 02/23/22 04:58 12:23 18:32 WBC 4.3 L RBC 3.40 L Hgb 10.3 L Hct 28.7 L MCV MCH MCHC 36 H RDW 16.9 H Plt Count Lymph % (Auto) Lymph # (Auto) Seg Neutrophils % PT INR APTT D-Dimer ABG pO2 ABG HCO3 ABG O2 Saturation ABG Base Excess ABG Hemoglobin Oxyhemoglobin Sodium BUN Creatinine Glucose POC Glucose 108 H 163 H Lactic Acid Magnesium Ferritin ALT Lactate Dehydrogenase Total Creatine Kinase CK-MB (CK-2) CK-MB (CK-2) Rel Index Troponin T C-Reactive Protein Total Protein Albumin HDL Cholesterol Coronavirus (PCR) 02/24/22 02/24/22 02/24/22 04:30 11:31 15:00 WBC RBC Hgb Hct MCV MCH MCHC RDW Plt Count Lymph % (Auto) Lymph # (Auto) Seg Neutrophils % PT INR APTT D-Dimer ABG pO2 62.1 L ABG HCO3 28.3 H ABG O2 Saturation 94.3 L ABG Base Excess 3.7 H ABG Hemoglobin Oxyhemoglobin 92.7 L Sodium BUN 22 H Creatinine 0.2 L Glucose POC Glucose 123 H Lactic Acid Magnesium Ferritin ALT Lactate Dehydrogenase Total Creatine Kinase CK-MB (CK-2) CK-MB (CK-2) Rel Index Troponin T C-Reactive Protein Total Protein 5.9 L Albumin 2.7 L HDL Cholesterol Coronavirus (PCR) 02/24/22 02/25/22 02/25/22 16:23 04:34 04:34 WBC RBC Hgb Hct MCV MCH MCHC RDW Plt Count Lymph % (Auto) Lymph # (Auto) Seg Neutrophils % PT INR APTT D-Dimer 258.52 H ABG pO2 ABG HCO3 ABG O2 Saturation ABG Base Excess ABG Hemoglobin Oxyhemoglobin Sodium BUN Creatinine Glucose POC Glucose 122 H Lactic Acid Magnesium Ferritin 716.1 H ALT Lactate Dehydrogenase Total Creatine Kinase CK-MB (CK-2) CK-MB (CK-2) Rel Index Troponin T C-Reactive Protein Total Protein Albumin HDL Cholesterol Coronavirus (PCR) 02/25/22 02/25/22 02/25/22 04:34 04:34 22:44 WBC RBC Hgb 11.7 L 11.2 L Hct 34.9 L D 33.6 L MCV 78 L MCH 26 L MCHC RDW 17.0 H 16.6 H Plt Count 451 H 446 H Lymph % (Auto) 7.8 L Lymph # (Auto) 0.6 L Seg Neutrophils % 87.8 H PT INR APTT D-Dimer ABG pO2 ABG HCO3 ABG O2 Saturation ABG Base Excess ABG Hemoglobin Oxyhemoglobin Sodium BUN Creatinine 0.3 L Glucose 115 H POC Glucose Lactic Acid Magnesium Ferritin ALT Lactate Dehydrogenase 187 H Total Creatine Kinase CK-MB (CK-2) CK-MB (CK-2) Rel Index Troponin T C-Reactive Protein Total Protein 5.8 L Albumin 3.1 L HDL Cholesterol Coronavirus (PCR) 02/25/22 02/25/22 02/27/22 22:44 22:44 04:53 WBC RBC Hgb Hct MCV 77 L MCH 24 L MCHC 31 L RDW 17.3 H Plt Count Lymph % (Auto) Lymph # (Auto) Seg Neutrophils % PT 17.3 H INR 1.26 H APTT 42.0 H D-Dimer ABG pO2 ABG HCO3 ABG O2 Saturation ABG Base Excess ABG Hemoglobin Oxyhemoglobin Sodium BUN Creatinine 0.3 L Glucose POC Glucose Lactic Acid Magnesium Ferritin ALT Lactate Dehydrogenase Total Creatine Kinase CK-MB (CK-2) CK-MB (CK-2) Rel Index Troponin T C-Reactive Protein Total Protein Albumin HDL Cholesterol Coronavirus (PCR) 02/28/22 03/01/22 04:24 03:48 WBC 12.3 H RBC Hgb Hct MCV 75 L MCH 24 L MCHC RDW 17.6 H Plt Count Lymph % (Auto) Lymph # (Auto) Seg Neutrophils % PT INR APTT D-Dimer ABG pO2 ABG HCO3 ABG O2 Saturation ABG Base Excess ABG Hemoglobin Oxyhemoglobin Sodium BUN Creatinine 0.3 L Glucose POC Glucose Lactic Acid Magnesium Ferritin ALT Lactate Dehydrogenase Total Creatine Kinase CK-MB (CK-2) CK-MB (CK-2) Rel Index Troponin T C-Reactive Protein Total Protein Albumin HDL Cholesterol Coronavirus (PCR)
[2022-03-02] MEDS: HEPARIN 5,000 UNIT/1 ML VIAL SUB-Q SCH ×3 (05:49→21:23)
[2022-03-02] MEDS: methylPREDNISolone Sod Succinate 125 MG/2 ML INJ IV SCH ×3 (05:49→17:19)
[2022-03-02 06:55] LABS: Hematocrit 39.6 % (35.5-45.6); Hemoglobin 13.2 gm/dl (11.8-15.2); Mean Corpuscular HGB Conc 33 % (32-34); Mean Corpuscular Volume 76 fl (84-94); Platelet Count 348 K/mm3 (140-440); Red Blood Count 5.25 M/mm3 (3.65-5.03); Red Cell Distribution Width 17.8 % (13.2-15.2)
[2022-03-02 06:59] LABS: Blood Urea Nitrogen 16 mg/dL (9-20); Calcium 8.8 mg/dL (8.4-10.2); Hemolysis Index 9
[2022-03-02 07:05] LABS: BUN/Creatinine Ratio 53
[2022-03-02] MEDS: ARFORMOTEROL 15 MCG/2 ML NEBU IH SCH ×2 (07:30→20:00)
[2022-03-02] MEDS: BUDESONIDE 0.5 MG/2 ML NEBU IH SCH ×2 (07:30→20:00)
[2022-03-02] MEDS: FAMOTIDINE 20 MG TAB PO SCH ×2 (09:55→21:23)
--- NOTE | 2022-03-02 10:04 | Progress Note ---
Assessment and Plan Assessment and plan: This is a 61-year-old male with current nicotine abuse, HTN and COPD who presented to emergency department on 02/20 with shortness of breath over the past 2 to 3 days, cough with sputum production and increasing shortness of breath not responding to inhalers or nebulizer treatments. In the emergency department patient was tachycardic and tachypneic and SPO2 was in the 70s on room air. Patient was given albuterol, magnesium, and remdesivir by EMS on arrival. Recommend the emergency department. CXR wet read with right lower lobe pneumonia. Patient was admitted to the hospitalist service with acute hypoxic respiratory failure, right lower lobe pneumonia and COPD exacerbation with consult to pulmonology. Hospital course to date: 02/21: No acute events overnight, COVID-19 PCR positive, infectious disease consulted started on remdesivir 02/22: Patient transferred to [facility], currently on CPAP with increased work of breathing. Given 1 dose of Ativan which helped work of breathing and heart rate decreased. 02/23: Patient was on continuous BiPAP all night, this morning patient weaned to high flow nasal cannula with RT. Noted bradycardia overnight and patient is on remdesivir therefore Precedex will be stopped and as needed Ativan will be ordered. Patient states that he feels much better and instructed to self prone as tolerated. 02/24: Improved respirations. Vitals improved, no longer bradycardic as patient off of precedex. prn ativan for anxiety however counseled on how to deal with "panic attacks". Currently on HiFlo NC, RT will attempt to de-escalate to salter NC. continue with bipap qhs/prn. Continued therapy for covid 19 viral infection with solumedrol and remdesivir. Pulmonary and ID recommendations reviewed. Continue [facility] level of care at this time, prognosis remains guarded. 02/25: Patient seen and examined today. Continues off Precedex. Continues on BiPAP and high flow and intermittently. 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 Mildly elevated D-dimer considering COVID diagnosis with empirically treat with full dose anticoagulation. Recommend proning as tolerated. Home O2 evaluation prior to discharge 02/26: Patient still hypoxic respiratory failure secondary to COVID-19 continue current management. He continues on steroids for 10 days, and has completed Remdesivir. We will continue to wean oxygen as tolerated. If continues to wean down on liters flow and FiO2 will likely transfer to the medical floor in a.m. Encourage proning as tolerated. 02/27: Continue current management wean as tolerated from oxygen. Prone position if tolerated. Continue steroids. Patient still on high flow nasal cannula. Hopefully transition soon to normal nasal cannula and home O2 evaluation prior to discharge. 02/28: Patient seen and examined clinically stable at this time. Down to 3 L nasal cannula. Awaiting placement to rehab. Downgrade to the third floor. 03/01: Continue Isolation precaution per hospital policy. Pt clinically stable on 3l NC. Awaiting placement. Discussed with Nursing staff. 03/02: Patient seen and examined, continues to show improvement, tolerating NIV at night and 3L NC in am. Will check with PT/OT and if not approved for SNF will begin to work on home health. Assessment and plan: This is a 61-year-old male with current nicotine abuse, HTN and COPD admitted with COPD exacerbation secondary to COVID-19 infection Neuro: Generalized anxiety disorder -As needed Ativan IV -S/p Precedex drip, now d/c -Reorientation as needed -Maintain sleep-wake cycle -As needed analgesia Cardiac: SB, h/o hypertension -Cardiology consulted, appreciate recommendations -Blood pressure monitoring per protocol -Hold home antihypertension regimen Respiratory: Acute hypoxemic respiratory failure, COPD exacerbation, h/o COPD, current nicotine abuse -Pulmonology consulted, appreciate recommendations -s/p Ventimask -BiPAP as needed -Wean to hyponasal cannula -SPO2 monitor per protocol -Supplemental oxygen as needed -Pulmonary hygiene -Albuterol, Pulmicort, Brovana GI: Moderate protein calorie malnutrition -24 hours -215 ml -Regular diet -Nutrition supplementation : NAD -Monitor intake and output -Renally dose medications -Avoid nephrotoxic medications -Trend BMP ID: COVID 19 infection -Infectious disease consulted, appreciate recommendation -COVID-19 PCR positive -Solu-Medrol 60 mg every 6 hours -Antibiotic discontinued -Remdesivir for 5 days (02/21-02/26) -Contact/droplet precautions -f/u blood culture -Monitor WBC and temperature curve -Trend COVID-19 inflammatory markers -Anticoagulation per protocol Endo: NAD -Avoid hypoglycemia Heme: Leukopenia (resolved) -Trend CBC -Transfuse hemoglobin less than 7 -SCDs to BLE while in bed History Interval history: Patient seen and examined resting comfortably down to 3 L, no fever, tolerating diet Hospitalist Physical - Physical exam Narrative exam: - Physical exam Narrative exam: General appearance: Present: No distress, cachectic, continues on 3 L nasal cannula - EENT Eyes: Present: PERRL, EOM intact ENT: clear oral mucosa, dentition normal - Neck Neck: Present: normal ROM - Respiratory Respiratory effort: normal Respiratory: bilateral: diminished - Cardiovascular Rhythm: regular Heart Sounds: Present: S1 & S2. Absent: systolic murmur, diastolic murmur - Extremities Extremities: no ischemia, pulses intact, pulses symmetrical, No edema, normal temperature, normal color, Full ROM Peripheral Pulses: within normal limits - Abdominal General gastrointestinal: soft, non-tender, non-distended, normal bowel sounds - Integumentary Integumentary: Present: warm, dry - Psychiatric Psychiatric: cooperative - Neurologic Neurologic: CNII-XII intact, no focal deficits, moves all extremities - Allied Health Allied health notes reviewed: nursing, RT - Constitutional Vitals: Temp Pulse Resp BP Pulse Ox 97.7 F 71 24 118/64 100 03/01/22 11:27 03/02/22 07:30 03/02/22 07:30 03/01/22 22:54 03/02/22 07:30 General appearance: Present: mild distress, cachectic HEART Score - HEART Score Troponin: Troponin T TNR 02/20/22 14:34 Results - Labs CBC & Chem 7: 03/02/22 06:24 03/02/22 06:24 Labs: Laboratory Last Values WBC 9.1 K/mm3 (4.5-11.0) 03/02/22 06:24 RBC 5.25 M/mm3 (3.65-5.03) H 03/02/22 06:24 Hgb 13.2 gm/dl (11.8-15.2) 03/02/22 06:24 Hct 39.6 % (35.5-45.6) 03/02/22 06:24 MCV 76 fl (84-94) L 03/02/22 06:24 MCH 25 pg (28-32) L 03/02/22 06:24 MCHC 33 % (32-34) 03/02/22 06:24 RDW 17.8 % (13.2-15.2) H 03/02/22 06:24 Plt Count 348 K/mm3 (140-440) 03/02/22 06:24 Lymph % (Auto) 7.8 % (13.4-35.0) L 02/25/22 04:34 Gove % (Auto) 3.8 % (0.0-7.3) 02/25/22 04:34 Eos % (Auto) 0.4 % (0.0-4.3) 02/25/22 04:34 Baso % (Auto) 0.2 % (0.0-1.8) 02/25/22 04:34 Lymph # (Auto) 0.6 K/mm3 (1.2-5.4) L 02/25/22 04:34 Gove # (Auto) 0.3 K/mm3 (0.0-0.8) 02/25/22 04:34 Eos # (Auto) 0.0 K/mm3 (0.0-0.4) 02/25/22 04:34 Baso # (Auto) 0.0 K/mm3 (0.0-0.1) 02/25/22 04:34 Seg Neutrophils % 87.8 % (40.0-70.0) H 02/25/22 04:34 Seg Neutrophils # 6.2 K/mm3 (1.8-7.7) 02/25/22 04:34 PT 17.3 Sec. (12.2-14.9) H 02/25/22 22:44 INR 1.26 (0.87-1.13) H 02/25/22 22:44 APTT 42.0 Sec. (24.2-36.6) H 02/25/22 22:44 D-Dimer 258.52 ng/mlDDU (0-234) H 02/25/22 04:34 ABG pH 7.440 pH Units (7.350-7.450) 02/24/22 15:00 ABG pCO2 42.6 mm Hg 02/24/22 15:00 ABG pO2 62.1 mm Hg (80.0-90.0) L 02/24/22 15:00 ABG HCO3 28.3 mmol/L (20.0-26.0) H 02/24/22 15:00 ABG O2 Saturation 94.3 % (95.0-99.0) L 02/24/22 15:00 ABG O2 Content 18.6 (0.0-44) 02/24/22 15:00 ABG Base Excess 3.7 mmol/L (-2.0-3.0) H 02/24/22 15:00 ABG Hemoglobin 14.3 gm/dl (14.0-18.0) 02/24/22 15:00 ABG Carboxyhemoglobin 1.2 % (0.0-5.0) 02/24/22 15:00 ABG Methemoglobin 0.5 % (0.0-1.5) 02/24/22 15:00 Oxyhemoglobin 92.7 % (95.0-99.0) L 02/24/22 15:00 FiO2 30 % 02/24/22 15:00 Sodium 138 mmol/L (137-145) 03/02/22 06:24 Potassium 3.9 mmol/L (3.6-5.0) 03/02/22 06:24 Chloride 95.7 mmol/L (98-107) L 03/02/22 06:24 Carbon Dioxide 36 mmol/L (22-30) H 03/02/22 06:24 Anion Gap 10 mmol/L 03/02/22 06:24 BUN 16 mg/dL (9-20) 03/02/22 06:24 Creatinine 0.3 mg/dL (0.8-1.3) L 03/02/22 06:24 Estimated GFR > 60 ml/min 03/02/22 06:24 BUN/Creatinine Ratio 53 % 03/02/22 06:24 Glucose 113 mg/dL (75-100) H 03/02/22 06:24 POC Glucose 122 mg/dL (70-105) H 02/24/22 16:23 Lactic Acid 2.10 mmol/L (0.7-2.0) H* 02/20/22 14:34 Calcium 8.8 mg/dL (8.4-10.2) 03/02/22 06:24 Magnesium TNR 02/20/22 14:34 Ferritin 716.1 ng/mL (30.0-300.0) H 02/25/22 04:34 Total Bilirubin 0.40 mg/dL (0.1-1.2) 02/25/22 04:34 AST 12 units/L (5-40) 02/25/22 04:34 ALT 11 units/L (7-56) 02/25/22 04:34 Alkaline Phosphatase 77 units/L (35-129) 02/25/22 04:34 Lactate Dehydrogenase 187 units/L (91-180) H 02/25/22 04:34 Total Creatine Kinase TNR 02/20/22 14:34 CK-MB (CK-2) TNR 02/20/22 14:34 CK-MB (CK-2) Rel Index TNR 02/20/22 14:34 Troponin T TNR 02/20/22 14:34 C-Reactive Protein 0.60 mg/dL (0.00-1.30) 02/25/22 04:34 NT-Pro-B Natriuret Pep 146.4 pg/mL (0-900) 02/20/22 13:39 Total Protein 5.8 g/dL (6.3-8.2) L 02/25/22 04:34 Albumin 3.1 g/dL (3.9-5) L 02/25/22 04:34 Albumin/Globulin Ratio 1.1 % 02/25/22 04:34 Triglycerides 140 mg/dL (2-149) 02/20/22 13:39 Cholesterol 154 mg/dL (50-199) 02/20/22 13:39 LDL Cholesterol Direct 90 mg/dL (50-130) 02/20/22 13:39 HDL Cholesterol 34 mg/dL (40-59) L 02/20/22 13:39 Cholesterol/HDL Ratio 4.52 % 02/20/22 13:39 Lipase TNR 02/20/22 14:34 Urine Color Yellow (Yellow) 02/20/22 18:53 Urine Turbidity Cloudy (Clear) 02/20/22 18:53 Specific Luther (Man) 1.020 (1.003-1.030) 02/20/22 18:53 Ur Protein (Man) 1+ mg/dL (Negative) 02/20/22 18:53 Ur Ketones (Man) Negative (Negative) 02/20/22 18:53 Ur Nitrite (Man) Negative (Negative) 02/20/22 18:53 Ur Reducing Substances Not Reportable 02/20/22 18:53 Urine Bilirubin (Man) Negative (Negative) 02/20/22 18:53 Leukocyte Esterase (Man) Negative (Negative) 02/20/22 18:53 Urine WBC (Auto) 3.0 /HPF (0.0-6.0) 02/20/22 18:53 Urine RBC (Auto) 1.0 /HPF (0.0-6.0) 02/20/22 18:53 Urine RBC (Manual) Negative (Negative) 02/20/22 18:53 Urine Mucus 1+ /HPF 02/20/22 18:53 Nasal Screen MRSA (PCR) Negative (Negative) 02/22/22 Unknown Urine Opiates Screen Negative 02/20/22 18:53 Urine Methadone Screen Negative 02/20/22 18:53 Ur Barbiturates Screen Negative 02/20/22 18:53 Ur Phencyclidine Scrn Negative 02/20/22 18:53 Ur Amphetamines Screen Negative 02/20/22 18:53 U Benzodiazepines Scrn Negative 02/20/22 18:53 Urine Cocaine Screen Negative 02/20/22 18:53 U Marijuana (THC) Screen Negative 02/20/22 18:53 Drugs of Abuse Note Disclamer 02/20/22 18:53 Coronavirus (PCR) Positive (Negative) A 02/21/22 11:30 Linder/IV: Voiding Method Urinal Active Medications - Current Medications Current Medications: Generic Name Dose Route Start Last Admin Trade Name Freq PRN Reason Stop Dose Admin Acetaminophen 650 mg 02/20/22 17:46 02/24/22 00:03 Acetaminophen 325 Mg Tab PO 650 mg Q4H PRN Administration Pain MILD(1-3)/Fever >100.5/SALEEM Albuterol 2.5 mg 02/21/22 12:00 Albuterol 2.5 Mg/3 Ml Nebu IH Q4HRT PRN Shortness Of Breath Arformoterol Tartrate 15 mcg 02/21/22 20:00 03/02/22 07:30 Arformoterol 15 Mcg/2 Ml Nebu IH 15 mcg Q12HRT LIONEL Administration Budesonide 0.5 mg 02/21/22 20:00 03/02/22 07:30 Budesonide 0.5 Mg/2 Ml Nebu IH 0.5 mg Q12HRT LIONEL Administration Famotidine 20 mg 02/20/22 22:00 03/02/22 09:55 Famotidine 20 Mg Tab PO 20 mg BID LIONEL Administration Heparin Sodium (Porcine) 5,000 unit 02/25/22 16:00 03/02/22 05:49 Heparin 5,000 Unit/1 Ml Vial SUB-Q 5,000 unit Q8HR LIONEL Administration Lorazepam 0.5 mg 02/23/22 12:53 02/24/22 20:20 Lorazepam 2 Mg/Ml Vial IV 0.5 mg Q4H PRN Administration Anxiety Methylprednisolone Sodium Succinate 60 mg 02/22/22 00:00 03/02/22 05:49 Methylprednisolone Sod Succinate 125 Mg/2 Ml Inj IV 60 mg Q6HR LIONEL Administration Metoclopramide HCl 10 mg 02/20/22 17:46 Metoclopramide 10 Mg/2 Ml Inj IV Q6H PRN Nausea And Vomiting Ondansetron HCl 4 mg 02/20/22 17:46 Ondansetron 4 Mg/2 Ml Inj IV Q8H PRN Nausea And Vomiting Oxycodone/Acetaminophen 1 tab 02/20/22 17:46 02/26/22 22:55 Oxycodone /Acetaminophen 5-325mg Tab PO 1 tab Q6H PRN Administration Pain, Moderate (4-6) Sodium Chloride 10 ml 02/20/22 22:00 03/02/22 09:55 Sodium Chloride 0.9% 10 Ml Flush Syringe IV 10 ml BID LIONEL Administration Sodium Chloride 10 ml 02/20/22 17:46 Sodium Chloride 0.9% 10 Ml Flush Syringe IV PRN PRN LINE FLUSH Nutrition/Malnutrition Assess - Dietary Evaluation Nutrition/Malnutrition Findings: Nutrition Notes Start: 02/21/22 14:17 Freq: Status: Active Protocol: Document 02/28/22 12:41 ALLA (Rec: 02/28/22 12:44 ALLA [id number]) Nutrition Notes Initial or Follow up Reassessment Current Diagnosis COPD,Hypertension,Respiratory Failure Other Pertinent Diagnosis RLL pneu, COPD exacerbation, COVID-19 (+) Current Diet Regular + Ensure High Protein TID Labs/Tests Reviewed Pertinent Medications Reviewed Height 5 ft 5 in Weight 35.6 kg [place] Body Weight (kg) 61.81 BMI 13.0 Weight Status Underweight Subjective/Other Information Pt has consumed 92% of meals since last assessment. Spoke with pt via phone (12:40); he reports "very good" appetite and that he no longer desires the ONS. Burn Absent Trauma Absent #1 Nutrition Diagnosis Malnutrition As Evidenced by Signs and Symptoms pt reports good appetite and PO intake meeting 100% energy and pro needs Diagnosis Progress(for reassessment Improved documentation) Is patient on ventilator? No Is Patient Ambulatory and/or Out of Bed Yes REE-([facility]-ambulatory/OOB) [ 1401.244 [id number]] Kcal/Kg value to use for calculation 50 Approximate Energy Requirements Using 1780 kcal/Kg Calculation Used for Recommendations Kcal/kg Additional Notes Pro needs 1.2-1.5g/k-53g/ day Fluid needs 1ml/kcal Nutrition Intervention Change Diet Order: Continue current diet order Add Supplement/Snack (indicate name/kcal D/C ONS /protein ) Goal #1 PO intakes to continue to meet 100% energy and pro needs Goal #2 Wt maintenance and/or gain Follow-Up By: 03/07/22 Additional Comments F/U: intakes, wt
--- NOTE | 2022-03-02 12:18 | Progress Note ---
Assessment and Plan 1 y/o male with acute respiratory failure from COPD exacerbation secondary to COVID 03/02/2022: Continue to improve consider taper his steroids continue with the bronchodilator and oxygen therapy. Consider weaning off NIV at night. 03/01/2022: Patient continued to improve continue with steroids and inhaled bronchodilators. NIV at night. 02/28/22: [facility] Continue to wean FiO2 and Flow for sats 88%. Continue high dose steroids until back on nasal cannula. Incentive darell. Daily net negative state. Continue NIV therapy at night. 02/27/22: Taking a long time to wean. Not unexpected given his smoking history and degree of COPD and conditioning prior to arrival. Still suggest that he be evaluated for LTACH. Continue high dose steroids. I/O are negative if accurate and this is where he needs to be. Continue NIV at night. Wean For sats >88% 02/26/22: Patient had to go back on Bipap yesterday morning so transfer was held. Patient needs to wear NIV night, not for hypoxemia but given his degree of COPD and propensity for concomitant NORTH that is undiagnosed. This would benefit patient and help with oxygen requirements so please place patient on it. If patient refuses, please document. Continue high dose steroids until off HFNC. Anxiety therapy. 02/25/22: COntinue to wean FiO2 as tolerated. Most likely will need oxygen at discharge. Continue Remdesivir and steroids. Continue PRN NIV, can change night time to PRN as well. Daily negative fluid balance. Will transfer to floor. (COVID Floor) 02/24/22: No further bradycardia, actually tachy. Remains calm and RT is weaning HFNC. Continue Remdesivir and steroids. NIV at night and PRN. Prognosis remains guarded but improving. Today is his 62 birthday 02/23/22: Had some bradycardia this am. Concern for precedex induced vs remdesivir or a combination of both. Will stop precedex and put on PRN ativan. Did will with 0.5 yesterday so will do 0.6 IV q4. Bipap PRN and QHS. Tolerating HFNC right now. 1. high dose steroids 2. Bipap PRN and QHS 3. Remdesivir 4. CRP to low for Actemra 5. Negative fluid balance daily 6. Guarded prognosis, did well with ativan PRN so will initiate precedex therapy to help prevent intubation. Long discussion with outside of room and how the mortality would increase if placed on ventilator. Expressed understanding and they will discuss more. Subjective Date of service: 03/02/22 Interval history: Patient feeling much better. On nasal cannula. Breathing is improving. Has nonproductive cough ambulating well. Objective - Exam Narrative Exam: - Physical exam Narrative exam: General appearance: Present: No distress, cachectic, continues on 3 L nasal cannula - EENT Eyes: Present: PERRL, EOM intact ENT: clear oral mucosa, dentition normal - Neck Neck: Present: normal ROM - Respiratory Respiratory effort: normal Respiratory: bilateral: diminished - Cardiovascular Rhythm: regular Heart Sounds: Present: S1 & S2. Absent: systolic murmur, diastolic murmur - Extremities Extremities: no ischemia, pulses intact, pulses symmetrical, No edema, normal temperature, normal color, Full ROM Peripheral Pulses: within normal limits - Abdominal General gastrointestinal: soft, non-tender, non-distended, normal bowel sounds - Integumentary Integumentary: Present: warm, dry - Psychiatric Psychiatric: cooperative - Neurologic Neurologic: CNII-XII intact, no focal deficits, moves all extremities - Allied Health Allied health notes reviewed: nursing, RT Vital Signs - 12hr 03/02/22 03/02/22 04:17 07:30 Pulse Rate 68 Pulse Rate [ 71 Bilateral Throughout] Respiratory 17 28 H Rate Respiratory 24 Rate [Bilateral Throughout] O2 Sat by Pulse 99 100 Oximetry Constitutional: appears uncomfortable, other (appears older than stated age) Eyes: non-icteric ENT: other (full face mask bipap on at present) Neck: supple Effort: very labored Ascultation: Bilateral: diminished breath sounds CBC and BMP: 03/02/22 06:24 03/02/22 06:24 ABG, PT/INR, D-dimer: ABG ABG pH 7.440 pH Units (7.350-7.450) 02/24/22 15:00 ABG pCO2 42.6 mm Hg 02/24/22 15:00 ABG pO2 62.1 mm Hg (80.0-90.0) L 02/24/22 15:00 ABG O2 Saturation 94.3 % (95.0-99.0) L 02/24/22 15:00 PT/INR, D-dimer PT 17.3 Sec. (12.2-14.9) H 02/25/22 22:44 INR 1.26 (0.87-1.13) H 02/25/22 22:44 D-Dimer 258.52 ng/mlDDU (0-234) H 02/25/22 04:34 Abnormal lab findings: Abnormal Labs 02/20/22 02/20/22 02/20/22 13:33 13:33 13:33 WBC RBC Hgb Hct MCV MCH 34 H MCHC 39 H* RDW 16.8 H Plt Count Lymph % (Auto) Lymph # (Auto) Seg Neutrophils % PT 15.4 H INR APTT D-Dimer ABG pO2 ABG HCO3 ABG O2 Saturation ABG Base Excess ABG Hemoglobin Oxyhemoglobin Sodium Chloride Carbon Dioxide BUN Creatinine Glucose POC Glucose Lactic Acid 3.70 H* Magnesium Ferritin ALT Lactate Dehydrogenase Total Creatine Kinase CK-MB (CK-2) CK-MB (CK-2) Rel Index Troponin T C-Reactive Protein Total Protein Albumin HDL Cholesterol Coronavirus (PCR) 02/20/22 02/20/22 02/20/22 13:39 13:39 13:39 WBC RBC Hgb Hct MCV MCH MCHC RDW Plt Count Lymph % (Auto) Lymph # (Auto) Seg Neutrophils % PT INR APTT D-Dimer ABG pO2 ABG HCO3 ABG O2 Saturation ABG Base Excess ABG Hemoglobin Oxyhemoglobin Sodium Chloride Carbon Dioxide BUN Creatinine 0.3 L Glucose 139 H POC Glucose Lactic Acid Magnesium 2.60 H Ferritin ALT 5 L Lactate Dehydrogenase Total Creatine Kinase 54 L CK-MB (CK-2) 6.4 H CK-MB (CK-2) Rel Index 11.8 H Troponin T 0.141 H* C-Reactive Protein Total Protein Albumin 3.4 L HDL Cholesterol 34 L Coronavirus (PCR) 02/20/22 02/20/22 02/21/22 14:34 16:08 05:28 WBC 3.2 L RBC Hgb 11.4 L Hct 32.3 L MCV MCH MCHC 35 H RDW 16.4 H Plt Count Lymph % (Auto) Lymph # (Auto) 0.6 L Seg Neutrophils % 73.5 H PT INR APTT D-Dimer ABG pO2 195.7 H ABG HCO3 ABG O2 Saturation 99.2 H ABG Base Excess ABG Hemoglobin 12.7 L Oxyhemoglobin Sodium Chloride Carbon Dioxide BUN Creatinine Glucose POC Glucose Lactic Acid 2.10 H* Magnesium Ferritin ALT Lactate Dehydrogenase Total Creatine Kinase CK-MB (CK-2) CK-MB (CK-2) Rel Index Troponin T C-Reactive Protein Total Protein Albumin HDL Cholesterol Coronavirus (PCR) 02/21/22 02/21/22 02/21/22 05:28 09:20 09:20 WBC RBC Hgb Hct MCV MCH MCHC RDW Plt Count Lymph % (Auto) Lymph # (Auto) Seg Neutrophils % PT INR APTT D-Dimer 335.95 H ABG pO2 ABG HCO3 ABG O2 Saturation ABG Base Excess ABG Hemoglobin Oxyhemoglobin Sodium 136 L Chloride Carbon Dioxide BUN Creatinine 0.2 L Glucose 141 H POC Glucose Lactic Acid Magnesium Ferritin 1666.0 H ALT < 5 L Lactate Dehydrogenase Total Creatine Kinase CK-MB (CK-2) CK-MB (CK-2) Rel Index Troponin T C-Reactive Protein Total Protein Albumin 3.0 L HDL Cholesterol Coronavirus (PCR) 02/21/22 02/21/22 02/22/22 09:20 11:30 04:41 WBC RBC 3.11 L Hgb 10.3 L Hct 27.9 L MCV MCH 33 H MCHC 37 H RDW 17.1 H Plt Count Lymph % (Auto) 12.1 L Lymph # (Auto) 0.7 L Seg Neutrophils % 80.9 H PT INR APTT D-Dimer ABG pO2 ABG HCO3 ABG O2 Saturation ABG Base Excess ABG Hemoglobin Oxyhemoglobin Sodium Chloride Carbon Dioxide BUN Creatinine Glucose POC Glucose Lactic Acid Magnesium Ferritin ALT Lactate Dehydrogenase Total Creatine Kinase CK-MB (CK-2) CK-MB (CK-2) Rel Index Troponin T C-Reactive Protein 6.70 H Total Protein Albumin HDL Cholesterol Coronavirus (PCR) Positive A 02/22/22 02/22/22 02/22/22 04:41 04:41 12:20 WBC RBC Hgb Hct MCV MCH MCHC RDW Plt Count Lymph % (Auto) Lymph # (Auto) Seg Neutrophils % PT INR APTT D-Dimer ABG pO2 116.2 H ABG HCO3 26.6 H ABG O2 Saturation ABG Base Excess ABG Hemoglobin 11.9 L Oxyhemoglobin Sodium Chloride Carbon Dioxide BUN Creatinine 0.3 L Glucose 116 H POC Glucose Lactic Acid Magnesium Ferritin 1116.0 H ALT Lactate Dehydrogenase Total Creatine Kinase CK-MB (CK-2) CK-MB (CK-2) Rel Index Troponin T C-Reactive Protein 2.70 H Total Protein Albumin HDL Cholesterol Coronavirus (PCR) 02/23/22 02/23/22 02/23/22 04:58 04:58 04:58 WBC RBC Hgb Hct MCV MCH MCHC RDW Plt Count Lymph % (Auto) Lymph # (Auto) Seg Neutrophils % PT INR APTT D-Dimer 262.94 H ABG pO2 ABG HCO3 ABG O2 Saturation ABG Base Excess ABG Hemoglobin Oxyhemoglobin Sodium 136 L Chloride Carbon Dioxide BUN 21 H Creatinine 0.3 L Glucose 104 H POC Glucose Lactic Acid Magnesium Ferritin 806.9 H ALT Lactate Dehydrogenase Total Creatine Kinase CK-MB (CK-2) CK-MB (CK-2) Rel Index Troponin T C-Reactive Protein Total Protein 5.8 L Albumin 2.8 L HDL Cholesterol Coronavirus (PCR) 02/23/22 02/23/22 02/23/22 04:58 12:23 18:32 WBC 4.3 L RBC 3.40 L Hgb 10.3 L Hct 28.7 L MCV MCH MCHC 36 H RDW 16.9 H Plt Count Lymph % (Auto) Lymph # (Auto) Seg Neutrophils % PT INR APTT D-Dimer ABG pO2 ABG HCO3 ABG O2 Saturation ABG Base Excess ABG Hemoglobin Oxyhemoglobin Sodium Chloride Carbon Dioxide BUN Creatinine Glucose POC Glucose 108 H 163 H Lactic Acid Magnesium Ferritin ALT Lactate Dehydrogenase Total Creatine Kinase CK-MB (CK-2) CK-MB (CK-2) Rel Index Troponin T C-Reactive Protein Total Protein Albumin HDL Cholesterol Coronavirus (PCR) 02/24/22 02/24/22 02/24/22 04:30 11:31 15:00 WBC RBC Hgb Hct MCV MCH MCHC RDW Plt Count Lymph % (Auto) Lymph # (Auto) Seg Neutrophils % PT INR APTT D-Dimer ABG pO2 62.1 L ABG HCO3 28.3 H ABG O2 Saturation 94.3 L ABG Base Excess 3.7 H ABG Hemoglobin Oxyhemoglobin 92.7 L Sodium Chloride Carbon Dioxide BUN 22 H Creatinine 0.2 L Glucose POC Glucose 123 H Lactic Acid Magnesium Ferritin ALT Lactate Dehydrogenase Total Creatine Kinase CK-MB (CK-2) CK-MB (CK-2) Rel Index Troponin T C-Reactive Protein Total Protein 5.9 L Albumin 2.7 L HDL Cholesterol Coronavirus (PCR) 02/24/22 02/25/22 02/25/22 16:23 04:34 04:34 WBC RBC Hgb Hct MCV MCH MCHC RDW Plt Count Lymph % (Auto) Lymph # (Auto) Seg Neutrophils % PT INR APTT D-Dimer 258.52 H ABG pO2 ABG HCO3 ABG O2 Saturation ABG Base Excess ABG Hemoglobin Oxyhemoglobin Sodium Chloride Carbon Dioxide BUN Creatinine Glucose POC Glucose 122 H Lactic Acid Magnesium Ferritin 716.1 H ALT Lactate Dehydrogenase Total Creatine Kinase CK-MB (CK-2) CK-MB (CK-2) Rel Index Troponin T C-Reactive Protein Total Protein Albumin HDL Cholesterol Coronavirus (PCR) 02/25/22 02/25/22 02/25/22 04:34 04:34 22:44 WBC RBC Hgb 11.7 L 11.2 L Hct 34.9 L D 33.6 L MCV 78 L MCH 26 L MCHC RDW 17.0 H 16.6 H Plt Count 451 H 446 H Lymph % (Auto) 7.8 L Lymph # (Auto) 0.6 L Seg Neutrophils % 87.8 H PT INR APTT D-Dimer ABG pO2 ABG HCO3 ABG O2 Saturation ABG Base Excess ABG Hemoglobin Oxyhemoglobin Sodium Chloride Carbon Dioxide BUN Creatinine 0.3 L Glucose 115 H POC Glucose Lactic Acid Magnesium Ferritin ALT Lactate Dehydrogenase 187 H Total Creatine Kinase CK-MB (CK-2) CK-MB (CK-2) Rel Index Troponin T C-Reactive Protein Total Protein 5.8 L Albumin 3.1 L HDL Cholesterol Coronavirus (PCR) 02/25/22 02/25/22 02/27/22 22:44 22:44 04:53 WBC RBC Hgb Hct MCV 77 L MCH 24 L MCHC 31 L RDW 17.3 H Plt Count Lymph % (Auto) Lymph # (Auto) Seg Neutrophils % PT 17.3 H INR 1.26 H APTT 42.0 H D-Dimer ABG pO2 ABG HCO3 ABG O2 Saturation ABG Base Excess ABG Hemoglobin Oxyhemoglobin Sodium Chloride Carbon Dioxide BUN Creatinine 0.3 L Glucose POC Glucose Lactic Acid Magnesium Ferritin ALT Lactate Dehydrogenase Total Creatine Kinase CK-MB (CK-2) CK-MB (CK-2) Rel Index Troponin T C-Reactive Protein Total Protein Albumin HDL Cholesterol Coronavirus (PCR) 02/28/22 03/01/22 03/02/22 04:24 03:48 06:24 WBC 12.3 H RBC 5.25 H Hgb Hct MCV 75 L 76 L MCH 24 L 25 L MCHC RDW 17.6 H 17.8 H Plt Count Lymph % (Auto) Lymph # (Auto) Seg Neutrophils % PT INR APTT D-Dimer ABG pO2 ABG HCO3 ABG O2 Saturation ABG Base Excess ABG Hemoglobin Oxyhemoglobin Sodium Chloride Carbon Dioxide BUN Creatinine 0.3 L Glucose POC Glucose Lactic Acid Magnesium Ferritin ALT Lactate Dehydrogenase Total Creatine Kinase CK-MB (CK-2) CK-MB (CK-2) Rel Index Troponin T C-Reactive Protein Total Protein Albumin HDL Cholesterol Coronavirus (PCR) 03/02/22 06:24 WBC RBC Hgb Hct MCV MCH MCHC RDW Plt Count Lymph % (Auto) Lymph # (Auto) Seg Neutrophils % PT INR APTT D-Dimer ABG pO2 ABG HCO3 ABG O2 Saturation ABG Base Excess ABG Hemoglobin Oxyhemoglobin Sodium Chloride 95.7 L Carbon Dioxide 36 H BUN Creatinine 0.3 L Glucose 113 H POC Glucose Lactic Acid Magnesium Ferritin ALT Lactate Dehydrogenase Total Creatine Kinase CK-MB (CK-2) CK-MB (CK-2) Rel Index Troponin T C-Reactive Protein Total Protein Albumin HDL Cholesterol Coronavirus (PCR)
[2022-03-03] MEDS: ACETAMINOPHEN 325 MG TAB PO PRN (00:27)
[2022-03-03] MEDS: methylPREDNISolone Sod Succinate 125 MG/2 ML INJ IV SCH ×2 (01:00→06:43)
[2022-03-03] MEDS: HEPARIN 5,000 UNIT/1 ML VIAL SUB-Q SCH (06:43)
[2022-03-03 06:49] VITALS: BP 117/67
--- NOTE | 2022-03-03 07:35 | Progress Note ---
Assessment and Plan Assessment and plan: This is a 61-year-old male with current nicotine abuse, HTN and COPD who presented to emergency department on 02/20 with shortness of breath over the past 2 to 3 days, cough with sputum production and increasing shortness of breath not responding to inhalers or nebulizer treatments. In the emergency department patient was tachycardic and tachypneic and SPO2 was in the 70s on room air. Patient was given albuterol, magnesium, and remdesivir by EMS on arrival. Recommend the emergency department. CXR wet read with right lower lobe pneumonia. Patient was admitted to the hospitalist service with acute hypoxic respiratory failure, right lower lobe pneumonia and COPD exacerbation with consult to pulmonology. Hospital course to date: 02/21: No acute events overnight, COVID-19 PCR positive, infectious disease consulted started on remdesivir 02/22: Patient transferred to [facility], currently on CPAP with increased work of breathing. Given 1 dose of Ativan which helped work of breathing and heart rate decreased. 02/23: Patient was on continuous BiPAP all night, this morning patient weaned to high flow nasal cannula with RT. Noted bradycardia overnight and patient is on remdesivir therefore Precedex will be stopped and as needed Ativan will be ordered. Patient states that he feels much better and instructed to self prone as tolerated. 02/24: Improved respirations. Vitals improved, no longer bradycardic as patient off of precedex. prn ativan for anxiety however counseled on how to deal with "panic attacks". Currently on HiFlo NC, RT will attempt to de-escalate to salter NC. continue with bipap qhs/prn. Continued therapy for covid 19 viral infection with solumedrol and remdesivir. Pulmonary and ID recommendations reviewed. Continue [facility] level of care at this time, prognosis remains guarded. 02/25: Patient seen and examined today. Continues off Precedex. Continues on BiPAP and high flow and intermittently. Discussed with nursing service administrator patient to be transferred to the medical floor and continue weaning oxygen as tolerated. Mildly elevated D-dimer considering COVID diagnosis with empirically treat with full dose anticoagulation. Recommend proning as tolerated. Home O2 evaluation prior to discharge 02/26: Patient still hypoxic respiratory failure secondary to COVID-19 continue current management. He continues on steroids for 10 days, and has completed Remdesivir. We will continue to wean oxygen as tolerated. If continues to wean down on liters flow and FiO2 will likely transfer to the medical floor in a.m. Encourage proning as tolerated. 02/27: Continue current management wean as tolerated from oxygen. Prone position if tolerated. Continue steroids. Patient still on high flow nasal cannula. Hopefully transition soon to normal nasal cannula and home O2 evaluation prior to discharge. 02/28: Patient seen and examined clinically stable at this time. Down to 3 L nasal cannula. Awaiting placement to rehab. Downgrade to the third floor. 03/01: Continue Isolation precaution per hospital policy. Pt clinically stable on 3l NC. Awaiting placement. Discussed with Nursing staff. 03/02: Patient seen and examined, continues to show improvement, tolerating NIV at night and 3L NC in am. Will check with PT/OT and if not approved for SNF will begin to work on home health. 03/03: Patient seen and examined, continues supportive care, wean off steroids, still with unsteady gait requiring assistance with ambulation. Awaiting placement. Assessment and plan: This is a 61-year-old male with current nicotine abuse, HTN and COPD admitted with COPD exacerbation secondary to COVID-19 infection Neuro: Generalized anxiety disorder -As needed Ativan IV -S/p Precedex drip, now d/c -Reorientation as needed -Maintain sleep-wake cycle -As needed analgesia Cardiac: SB, h/o hypertension -Cardiology consulted, appreciate recommendations -Blood pressure monitoring per protocol -Hold home antihypertension regimen Respiratory: Acute hypoxemic respiratory failure, COPD exacerbation, h/o COPD, current nicotine abuse -Pulmonology consulted, appreciate recommendations -s/p Ventimask -BiPAP as needed -Wean to hyponasal cannula -SPO2 monitor per protocol -Supplemental oxygen as needed -Pulmonary hygiene -Albuterol, Pulmicort, Brovana GI: Moderate protein calorie malnutrition -24 hours -215 ml -Regular diet -Nutrition supplementation : NAD -Monitor intake and output -Renally dose medications -Avoid nephrotoxic medications -Trend BMP ID: COVID 19 infection -Infectious disease consulted, appreciate recommendation -COVID-19 PCR positive -Solu-Medrol 60 mg every 6 hours -Antibiotic discontinued -Remdesivir for 5 days (02/21-02/26) -Contact/droplet precautions -f/u blood culture -Monitor WBC and temperature curve -Trend COVID-19 inflammatory markers -Anticoagulation per protocol Endo: NAD -Avoid hypoglycemia Heme: Leukopenia (resolved) -Trend CBC -Transfuse hemoglobin less than 7 -SCDs to BLE while in bed Hospitalist Physical - Constitutional Vitals: Temp Pulse Resp BP Pulse Ox 98.8 F 62 18 117/67 99 03/02/22 17:33 03/03/22 06:36 03/03/22 06:36 03/03/22 06:36 03/03/22 06:36 General appearance: Present: mild distress, cachectic HEART Score - HEART Score Troponin: Troponin T TNR 02/20/22 14:34 Results - Labs CBC & Chem 7: 03/02/22 06:24 03/02/22 06:24 Labs: Laboratory Last Values WBC 9.1 K/mm3 (4.5-11.0) 03/02/22 06:24 RBC 5.25 M/mm3 (3.65-5.03) H 03/02/22 06:24 Hgb 13.2 gm/dl (11.8-15.2) 03/02/22 06:24 Hct 39.6 % (35.5-45.6) 03/02/22 06:24 MCV 76 fl (84-94) L 03/02/22 06:24 MCH 25 pg (28-32) L 03/02/22 06:24 MCHC 33 % (32-34) 03/02/22 06:24 RDW 17.8 % (13.2-15.2) H 03/02/22 06:24 Plt Count 348 K/mm3 (140-440) 03/02/22 06:24 Lymph % (Auto) 7.8 % (13.4-35.0) L 02/25/22 04:34 [place] % (Auto) 3.8 % (0.0-7.3) 02/25/22 04:34 Eos % (Auto) 0.4 % (0.0-4.3) 02/25/22 04:34 Baso % (Auto) 0.2 % (0.0-1.8) 02/25/22 04:34 Lymph # (Auto) 0.6 K/mm3 (1.2-5.4) L 02/25/22 04:34 [place] # (Auto) 0.3 K/mm3 (0.0-0.8) 02/25/22 04:34 Eos # (Auto) 0.0 K/mm3 (0.0-0.4) 02/25/22 04:34 Baso # (Auto) 0.0 K/mm3 (0.0-0.1) 02/25/22 04:34 Seg Neutrophils % 87.8 % (40.0-70.0) H 02/25/22 04:34 Seg Neutrophils # 6.2 K/mm3 (1.8-7.7) 02/25/22 04:34 PT 17.3 Sec. (12.2-14.9) H 02/25/22 22:44 INR 1.26 (0.87-1.13) H 02/25/22 22:44 APTT 42.0 Sec. (24.2-36.6) H 02/25/22 22:44 D-Dimer 258.52 ng/mlDDU (0-234) H 02/25/22 04:34 ABG pH 7.440 pH Units (7.350-7.450) 02/24/22 15:00 ABG pCO2 42.6 mm Hg 02/24/22 15:00 ABG pO2 62.1 mm Hg (80.0-90.0) L 02/24/22 15:00 ABG HCO3 28.3 mmol/L (20.0-26.0) H 02/24/22 15:00 ABG O2 Saturation 94.3 % (95.0-99.0) L 02/24/22 15:00 ABG O2 Content 18.6 (0.0-44) 02/24/22 15:00 ABG Base Excess 3.7 mmol/L (-2.0-3.0) H 02/24/22 15:00 ABG Hemoglobin 14.3 gm/dl (14.0-18.0) 02/24/22 15:00 ABG Carboxyhemoglobin 1.2 % (0.0-5.0) 02/24/22 15:00 ABG Methemoglobin 0.5 % (0.0-1.5) 02/24/22 15:00 Oxyhemoglobin 92.7 % (95.0-99.0) L 02/24/22 15:00 FiO2 30 % 02/24/22 15:00 Sodium 138 mmol/L (137-145) 03/02/22 06:24 Potassium 3.9 mmol/L (3.6-5.0) 03/02/22 06:24 Chloride 95.7 mmol/L (98-107) L 03/02/22 06:24 Carbon Dioxide 36 mmol/L (22-30) H 03/02/22 06:24 Anion Gap 10 mmol/L 03/02/22 06:24 BUN 16 mg/dL (9-20) 03/02/22 06:24 Creatinine 0.3 mg/dL (0.8-1.3) L 03/02/22 06:24 Estimated GFR > 60 ml/min 03/02/22 06:24 BUN/Creatinine Ratio 53 % 03/02/22 06:24 Glucose 113 mg/dL (75-100) H 03/02/22 06:24 POC Glucose 122 mg/dL (70-105) H 02/24/22 16:23 Lactic Acid 2.10 mmol/L (0.7-2.0) H* 02/20/22 14:34 Calcium 8.8 mg/dL (8.4-10.2) 03/02/22 06:24 Magnesium TNR 02/20/22 14:34 Ferritin 716.1 ng/mL (30.0-300.0) H 02/25/22 04:34 Total Bilirubin 0.40 mg/dL (0.1-1.2) 02/25/22 04:34 AST 12 units/L (5-40) 02/25/22 04:34 ALT 11 units/L (7-56) 02/25/22 04:34 Alkaline Phosphatase 77 units/L (35-129) 02/25/22 04:34 Lactate Dehydrogenase 187 units/L (91-180) H 02/25/22 04:34 Total Creatine Kinase TNR 02/20/22 14:34 CK-MB (CK-2) TNR 02/20/22 14:34 CK-MB (CK-2) Rel Index TNR 02/20/22 14:34 Troponin T TNR 02/20/22 14:34 C-Reactive Protein 0.60 mg/dL (0.00-1.30) 02/25/22 04:34 NT-Pro-B Natriuret Pep 146.4 pg/mL (0-900) 02/20/22 13:39 Total Protein 5.8 g/dL (6.3-8.2) L 02/25/22 04:34 Albumin 3.1 g/dL (3.9-5) L 02/25/22 04:34 Albumin/Globulin Ratio 1.1 % 02/25/22 04:34 Triglycerides 140 mg/dL (2-149) 02/20/22 13:39 Cholesterol 154 mg/dL (50-199) 02/20/22 13:39 LDL Cholesterol Direct 90 mg/dL (50-130) 02/20/22 13:39 HDL Cholesterol 34 mg/dL (40-59) L 02/20/22 13:39 Cholesterol/HDL Ratio 4.52 % 02/20/22 13:39 Lipase TNR 02/20/22 14:34 Urine Color Yellow (Yellow) 02/20/22 18:53 Urine Turbidity Cloudy (Clear) 02/20/22 18:53 Specific [place] (Man) 1.020 (1.003-1.030) 02/20/22 18:53 Ur Protein (Man) 1+ mg/dL (Negative) 02/20/22 18:53 Ur Ketones (Man) Negative (Negative) 02/20/22 18:53 Ur Nitrite (Man) Negative (Negative) 02/20/22 18:53 Ur Reducing Substances Not Reportable 02/20/22 18:53 Urine Bilirubin (Man) Negative (Negative) 02/20/22 18:53 Leukocyte Esterase (Man) Negative (Negative) 02/20/22 18:53 Urine WBC (Auto) 3.0 /HPF (0.0-6.0) 02/20/22 18:53 Urine RBC (Auto) 1.0 /HPF (0.0-6.0) 02/20/22 18:53 Urine RBC (Manual) Negative (Negative) 02/20/22 18:53 Urine Mucus 1+ /HPF 02/20/22 18:53 Nasal Screen MRSA (PCR) Negative (Negative) 02/22/22 Unknown Urine Opiates Screen Negative 02/20/22 18:53 Urine Methadone Screen Negative 02/20/22 18:53 Ur Barbiturates Screen Negative 02/20/22 18:53 Ur Phencyclidine Scrn Negative 02/20/22 18:53 Ur Amphetamines Screen Negative 02/20/22 18:53 U Benzodiazepines Scrn Negative 02/20/22 18:53 Urine Cocaine Screen Negative 02/20/22 18:53 U Marijuana (THC) Screen Negative 02/20/22 18:53 Drugs of Abuse Note Disclamer 02/20/22 18:53 Coronavirus (PCR) Positive (Negative) A 02/21/22 11:30 L[place]/IV: Voiding Method Urinal Active Medications - Current Medications Current Medications: Generic Name Dose Route Start Last Admin Trade Name Freq PRN Reason Stop Dose Admin Acetaminophen 650 mg 02/20/22 17:46 03/03/22 00:27 Acetaminophen 325 Mg Tab PO 650 mg Q4H PRN Administration Pain MILD(1-3)/Fever >100.5/SALEEM Albuterol 2.5 mg 02/21/22 12:00 Albuterol 2.5 Mg/3 Ml Nebu IH Q4HRT PRN Shortness Of Breath Arformoterol Tartrate 15 mcg 02/21/22 20:00 03/02/22 20:00 Arformoterol 15 Mcg/2 Ml Nebu IH 15 mcg Q12HRT LIONEL Administration Budesonide 0.5 mg 02/21/22 20:00 03/02/22 20:00 Budesonide 0.5 Mg/2 Ml Nebu IH 0.5 mg Q12HRT LIONEL Administration Famotidine 20 mg 02/20/22 22:00 03/02/22 21:23 Famotidine 20 Mg Tab PO 20 mg BID LIONEL Administration Heparin Sodium (Porcine) 5,000 unit 02/25/22 16:00 03/03/22 06:43 Heparin 5,000 Unit/1 Ml Vial SUB-Q 5,000 unit Q8HR LIONEL Administration Lorazepam 0.5 mg 02/23/22 12:53 02/24/22 20:20 Lorazepam 2 Mg/Ml Vial IV 0.5 mg Q4H PRN Administration Anxiety Metoclopramide HCl 10 mg 02/20/22 17:46 Metoclopramide 10 Mg/2 Ml Inj IV Q6H PRN Nausea And Vomiting Ondansetron HCl 4 mg 02/20/22 17:46 Ondansetron 4 Mg/2 Ml Inj IV Q8H PRN Nausea And Vomiting Oxycodone/Acetaminophen 1 tab 02/20/22 17:46 02/26/22 22:55 Oxycodone /Acetaminophen 5-325mg Tab PO 1 tab Q6H PRN Administration Pain, Moderate (4-6) Prednisone 40 mg 03/03/22 10:00 Prednisone 20 Mg Tab PO QDAY LIONEL Sodium Chloride 10 ml 02/20/22 22:00 03/02/22 21:27 Sodium Chloride 0.9% 10 Ml Flush Syringe IV 10 ml BID LIONEL Administration Sodium Chloride 10 ml 02/20/22 17:46 Sodium Chloride 0.9% 10 Ml Flush Syringe IV PRN PRN LINE FLUSH Nutrition/Malnutrition Assess - Dietary Evaluation Nutrition/Malnutrition Findings: Nutrition Notes Start: 02/21/22 14:17 Freq: Status: Active Protocol: Document 02/28/22 12:41 ALLA (Rec: 02/28/22 12:44 ALLA [id number]) Nutrition Notes Initial or Follow up Reassessment Current Diagnosis COPD,Hypertension,Respiratory Failure Other Pertinent Diagnosis RLL pneu, COPD exacerbation, COVID-19 (+) Current Diet Regular + Ensure High Protein TID Labs/Tests Reviewed Pertinent Medications Reviewed Height 5 ft 5 in Weight 35.6 kg [place] Body Weight (kg) 61.81 BMI 13.0 Weight Status Underweight Subjective/Other Information Pt has consumed 92% of meals since last assessment. Spoke with pt via phone (12:40); he reports "very good" appetite and that he no longer desires the ONS. Burn Absent Trauma Absent #1 Nutrition Diagnosis Malnutrition As Evidenced by Signs and Symptoms pt reports good appetite and PO intake meeting 100% energy and pro needs Diagnosis Progress(for reassessment Improved documentation) Is patient on ventilator? No Is Patient Ambulatory and/or Out of Bed Yes REE-([facility]-ambulatory/OOB) [ 1401.244 NUTR.[id number]] Kcal/Kg value to use for calculation 50 Approximate Energy Requirements Using 1780 kcal/Kg Calculation Used for Recommendations Kcal/kg Additional Notes Pro needs 1.2-1.5g/k-53g/ day Fluid needs 1ml/kcal Nutrition Intervention Change Diet Order: Continue current diet order Add Supplement/Snack (indicate name/kcal D/C ONS /protein ) Goal #1 PO intakes to continue to meet 100% energy and pro needs Goal #2 Wt maintenance and/or gain Follow-Up By: 03/07/22 Additional Comments F/U: intakes, wt
[2022-03-03] MEDS: BUDESONIDE 0.5 MG/2 ML NEBU IH SCH (07:40)
[2022-03-03] MEDS: ARFORMOTEROL 15 MCG/2 ML NEBU IH SCH (07:40)
[2022-03-03] MEDS: FAMOTIDINE 20 MG TAB PO SCH (09:12)
--- NOTE | 2022-03-03 09:33 | Discharge Summary ---
Providers - Providers Date of Admission: 02/20/22 17:46 Attending physician: MAYRA RUSSELL MD 02/20/22 17:46 Consult to Physician [CONS] Routine Comment: Consulting Provider: BREE LAGUNAS Physician Instructions: Reason For Exam: Acute respiratory failure with hypoxia 02/20/22 23:00 Consult to Dietitian/Nutrition [CONS] Routine Physician Instructions: Reason For Exam: Reason for Consult: Poor oral intake 02/21/22 15:05 Consult to Physician [CONS] Routine Comment: Consulting Provider: AMBIKA WATSON Physician Instructions: Reason For Exam: Remdesivir administration 03/02/22 11:27 Occupational Therapy Evaluate and Treat [CONS] Routine Comment: Reason For Exam: debility Physical Therapy Evaluation and Treat [CONS] Routine Comment: Reason For Exam: debility Primary care physician: DEPARTMENTAL SECRETARY Hospitalization Reason for admission: Shortness of breath Condition: Fair Hospital course: This is a 61-year-old male with current nicotine abuse, HTN and COPD who presented to emergency department on 02/20 with shortness of breath over the past 2 to 3 days, cough with sputum production and increasing shortness of breath not responding to inhalers or nebulizer treatments. In the emergency department patient was tachycardic and tachypneic and SPO2 was in the 70s on room air. Patient was given albuterol, magnesium, and remdesivir by EMS on arrival. Recommend the emergency department. CXR wet read with right lower lobe pneumonia. Patient was admitted to the hospitalist service with acute hypoxic respiratory failure, right lower lobe pneumonia and COPD exacerbation with consult to pulmonology. Hospital course to date: 02/21: No acute events overnight, COVID-19 PCR positive, infectious disease consulted started on remdesivir 02/22: Patient transferred to [facility], currently on CPAP with increased work of breathing. Given 1 dose of Ativan which helped work of breathing and heart rate decreased. 02/23: Patient was on continuous BiPAP all night, this morning patient weaned to high flow nasal cannula with RT. Noted bradycardia overnight and patient is on remdesivir therefore Precedex will be stopped and as needed Ativan will be ordered. Patient states that he feels much better and instructed to self prone as tolerated. 02/24: Improved respirations. Vitals improved, no longer bradycardic as patient off of precedex. prn ativan for anxiety however counseled on how to deal with "panic attacks". Currently on HiFlo NC, RT will attempt to de-escalate to [place] NC. continue with bipap qhs/prn. Continued therapy for covid 19 viral infection with solumedrol and remdesivir. Pulmonary and ID recommendations reviewed. Continue [facility] level of care at this time, prognosis remains guarded. 02/25: Patient seen and examined today. Continues off Precedex. Continues on BiPAP and high flow and intermittently. Discussed with lumber grader patient to be transferred to the medical floor and continue weaning oxygen as tolerated. Mildly elevated D-dimer considering COVID diagnosis with empirically treat with full dose anticoagulation. Recommend proning as tolerated. Home O2 evaluation prior to discharge 02/26: Patient still hypoxic respiratory failure secondary to COVID-19 continue current management. He continues on steroids for 10 days, and has completed Remdesivir. We will continue to wean oxygen as tolerated. If continues to wean down on liters flow and FiO2 will likely transfer to the medical floor in a.m. Encourage proning as tolerated. 02/27: Continue current management wean as tolerated from oxygen. Prone position if tolerated. Continue steroids. Patient still on high flow nasal cannula. Hopefully transition soon to normal nasal cannula and home O2 evaluation prior to discharge. 02/28: Patient seen and examined clinically stable at this time. Down to 3 L nasal cannula. Awaiting placement to rehab. Downgrade to the third floor. 03/01: Continue Isolation precaution per hospital policy. Pt clinically stable on 3l NC. Awaiting placement. Discussed with Nursing staff. 03/02: Patient seen and examined, continues to show improvement, tolerating NIV at night and 3L NC in am. Will check with PT/OT and if not approved for SNF will begin to work on home health. 03/03: Patient seen and examined, continues supportive care, wean off steroids, still with unsteady gait requiring assistance with ambulation. is adamant that the patient should come home. Patient has a wheelchair and a walker at home. We will see if we can get home health arranged and also home O2 evaluation prior to discharge. I put a call to the but no call back yet. The did speak with the nurse yesterday. I did discuss with the patient who also is adamant about going home. I did discuss clinical findings and management and additional 50 minutes counseling on tobacco cessation patient verbalized understanding. Discussed with Nursing staff, patient did not require BiPAP over night, saturation remained at 98% on 3 liters Assessment and plan: This is a 61-year-old male with current nicotine abuse, HTN and COPD admitted with COPD exacerbation secondary to COVID-19 infection Neuro: Generalized anxiety disorder -As needed Ativan IV -S/p Precedex drip, now d/c -Reorientation as needed -Maintain sleep-wake cycle -As needed analgesia Cardiac: SB, h/o hypertension -Cardiology consulted, appreciate recommendations -Blood pressure monitoring per protocol -Hold home antihypertension regimen Respiratory: Acute hypoxemic respiratory failure, COPD exacerbation, h/o COPD, current nicotine abuse -Pulmonology consulted, appreciate recommendations -s/p Ventimask -BiPAP as needed -Wean to hyponasal cannula -SPO2 monitor per protocol -Supplemental oxygen as needed -Pulmonary hygiene -Albuterol, Pulmicort, Brovana GI: Moderate protein calorie malnutrition -24 hours -215 ml -Regular diet -Nutrition supplementation : NAD -Monitor intake and output -Renally dose medications -Avoid nephrotoxic medications -Trend BMP ID: COVID 19 infection -Infectious disease consulted, appreciate recommendation -COVID-19 PCR positive -Solu-Medrol 60 mg every 6 hours -Antibiotic discontinued -Remdesivir for 5 days (02/21-02/26) -Contact/droplet precautions -f/u blood culture -Monitor WBC and temperature curve -Trend COVID-19 inflammatory markers -Anticoagulation per protocol Endo: NAD -Avoid hypoglycemia Heme: Leukopenia (resolved) -Trend CBC -Transfuse hemoglobin less than 7 -SCDs to BLE while in bed Disposition: 06 HOME HEALTH CARE SERVICE Final Discharge Diagnosis (Prints w/discharge instructions): Acute hypoxic respiratory failure secondary to COVID-19. COVID-19. Tobacco use disorder. Generalized anxiety disorder. Debility. Symptomatic bradycardia. hypertension. COPD, current nicotine abuse. Moderate protein calorie malnutrition Time spent for discharge: 35 minutes Core Measure Documentation - Palliative Care Palliative Care/ Comfort Measures: Not Applicable - Core Measures Any of the following diagnoses?: none Exam - Physical Exam Narrative exam: - Physical exam Narrative exam: General appearance: Present: No distress, cachectic, continues on 3 L nasal cannula - EENT Eyes: Present: PERRL, EOM intact ENT: clear oral mucosa, dentition normal - Neck Neck: Present: normal ROM - Respiratory Respiratory effort: normal Respiratory: bilateral: diminished - Cardiovascular Rhythm: regular Heart Sounds: Present: S1 & S2. Absent: systolic murmur, diastolic murmur - Extremities Extremities: no ischemia, pulses intact, pulses symmetrical, No edema, normal temperature, normal color, Full ROM Peripheral Pulses: within normal limits - Abdominal General gastrointestinal: soft, non-tender, non-distended, normal bowel sounds - Integumentary Integumentary: Present: warm, dry - Psychiatric Psychiatric: cooperative - Neurologic Neurologic: CNII-XII intact, no focal deficits, moves all extremities - Allied Health Allied health notes reviewed: nursing, RT - Constitutional Vitals: Temp Pulse Resp BP Pulse Ox 98.8 F 62 20 117/67 99 03/02/22 17:33 03/03/22 06:36 03/03/22 09:20 03/03/22 06:36 03/03/22 09:20 Plan Activity: advance as tolerated, fall precautions Diet: regular Special Instructions: record daily weights, record daily BP diary, smoking cessation Care Plan Goals: Continue recommended COVID restrictions. Follow up with: [facility] [Referring] - 7 Days JUAN ARAUZ MD [Staff Physician] - 7 Days Prescriptions: Prednisone [predniSONE 10 mg (6-Day Pack, 21 Tabs)] 10 mg PO .TAPER #1 ALBUTEROL NEB's [Proventil 0.083% NEBS] 2.5 mg IH Q6H PRN #90 vial PRN Reason: Shortness Of Breath Tiotropium [Spiriva] 18 mcg IH QDAY #60 cap Budesonide/Formoterol Fumarate [Symbicort 160-4.5 Mcg Inhaler] 10.2 gm IH Q12H #1 can
[2022-03-03] MEDS ORDERED: predniSONE 20 MG TAB PO SCH (10:00)
== END 2022-03-03 12:26 | disposition home or self-care (01) | DRG 177 ==
LOC: ED 11:46 → 4A 17:46 → IMCU 02-21 16:41 → 3A 02-28 17:39
PROVIDERS: ADMIT Internal Medicine; ATTEND Internal Medicine
PROC: 4A033R1 Measurement of Arterial Saturation, Peripheral, Percutaneous Approach (ICD-10-PCS; principal; 2022-02-20)
PROC: 5A09557 Assistance with Respiratory Ventilation, Greater than 96 Consecutive Hours, Continuous Positive Airway Pressure (ICD-10-PCS; 2022-02-20)
PROC: XW033E5 Introduction of Remdesivir Anti-infective into Peripheral Vein, Percutaneous Approach, New Technology Group 5 (ICD-10-PCS; 2022-02-21)
PROC: 5A0945A Assistance with Respiratory Ventilation, 24-96 Consecutive Hours, High Flow/Velocity Cannula (ICD-10-PCS; 2022-02-23)
DX: U07.1 COVID-19 (principal); J12.82 Pneumonia due to coronavirus disease 2019; J96.01 Acute respiratory failure with hypoxia; E44.0 Moderate protein-calorie malnutrition; Z68.1 Body mass index [BMI] 19.9 or less, adult; J43.9 Emphysema, unspecified; F17.200 Nicotine dependence, unspecified, uncomplicated; I10 Essential (primary) hypertension; F41.1 Generalized anxiety disorder; R53.81 Other malaise; Z82.49 Family history of ischemic heart disease and other diseases of the circulatory system
CPT/HCPCS: 36415; 36600; 71045; 80048; 80053; 80061; 80307; 81001; 82140; 82550; 82553; 82565; 82728; 82803; 82962; 83615; 83735; 83880; 84484; 85025; 85027; 85379; 85610; 85730; 86140; 87040; 87116; 87641; 93005; 94640; 94644; 94660; 94760; 99285; 99406; G0378; J3490; J7121; J0456; J0696; J1644; J2060; J2543; J2930; J7030; J7040; J7042; J7050; U0003